=== PATIENT | male | born 1985 | race Caucasian/White ===

== ENCOUNTER 2017-11-04 21:47 | Emergency (ER) | payer MEDICARE, MEDICAID ==
[~2017-11-04] VITALS: Ht 195.6 cm; Wt 132.5 kg
[~2017-11-04 21:47] MED LIST: INSU100V13 SQ; LISI-604 PO
[2017-11-04] MEDS ORDERED: HYDROcodone/acetaminophen 10/325mg tab PO ONE (22:10)
[2017-11-04] MEDS ORDERED: cyclobenzaprine 10mg tablet PO ONE (22:10)
[2017-11-04] MEDS ORDERED: NAPR-56 PO (23:35)
[2017-11-04] MEDS ORDERED: CYCL-1 PO (23:35)
[2017-11-04] MEDS ORDERED: HYDR-569 PO (23:35)
[2017-11-04 23:41] VITALS: BP 175/65
== END 2017-11-04 23:45 | disposition home or self-care (01) ==
LOC: ER 21:48
DX: G89.29 Other chronic pain (principal); M54.5 Low back pain; M62.830 Muscle spasm of back; I10 Essential (primary) hypertension; E11.9 Type 2 diabetes mellitus without complications; Z87.891 Personal history of nicotine dependence; Z98.890 Other specified postprocedural states; Z88.8 Allergy status to other drugs, medicaments and biological substances; Z79.82 Long term (current) use of aspirin; Z79.899 Other long term (current) drug therapy; V49.9XXA Car occupant (driver) (passenger) injured in unspecified traffic accident, initial encounter; Y93.89 Activity, other specified; Y92.488 Other paved roadways as the place of occurrence of the external cause; Y99.8 Other external cause status
CPT/HCPCS: 72128; 72131; 99284

== ENCOUNTER 2024-09-29 09:11 | Inpatient (IN) | payer MEDICAID, MEDICARE ==
[~2024-09-29] VITALS: Ht 195.6 cm; Wt 109.1 kg
[~2024-09-29 09:11] MED LIST changes: +CYCL-1 PO; +HYDR-4383 PO; -LISI-604 PO; +LISI5TAB22 PO
[2024-09-29 10:16] LABS: BASOPHILS # (AUTO) 0.1 X10'3 (0-0.2); BASOPHILS % (AUTO) 0.9 % (0-1); EOSINOPHILS # (AUTO) 0.2 X10'3 (0-0.9); HEMATOCRIT 44.8 % (42.0-52.0); HEMOGLOBIN 15.3 g/dl (14.0-17.9); LYMPHOCYTES # (AUTO) 1.4 X10'3 (1.1-4.8); LYMPHOCYTES % (AUTO) 21.9 % (21-51); MEAN CORPUSCULAR HEMOGLOBIN 29.4 PG (27.0-31.0); MEAN CORPUSCULAR HGB CONC 34.2 g/dL (33.0-36.5); MEAN PLATELET VOLUME 7.3 FL (7.4-10.4); MONOCYTES # (AUTO) 0.4 X10'3 (0-0.9); MONOCYTES % (AUTO) 5.7 % (2-12); NEUTROPHILS # (AUTO) 4.3 X10'3 (1.8-7.7); NEUTROPHILS % (AUTO) 68.5 % (42-75); PLATELET COUNT 429 X10'3 (140-440); RED BLOOD COUNT 5.21 X10'6 (4.70-6.10); RED CELL DISTRIBUTION WIDTH 14.5 % (11.5-14.5); WHITE BLOOD COUNT 6.3 X10'3 (4.5-11.0)
[2024-09-29 10:22] LABS: ALBUMIN 3.1 G/DL (3.4-5.0); ANION GAP 8 (8-16); BLOOD UREA NITROGEN 33 MG/DL (7-18); BUN/CREATININE RATIO 15.1 (10.0-20.0); CALCIUM 8.9 MG/DL (8.5-10.1); CHLORIDE 104 MMOL/L (99-107); CREATININE 2.18 MG/DL (0.60-1.10); GLUCOSE 187 MG/DL (70-104); MAGNESIUM 1.9 MG/DL (1.5-2.4); POTASSIUM 4.8 MMOL/L (3.5-5.1); SODIUM 137 MMOL/L (135-145); TOTAL CARBON DIOXIDE 25.3 MMOL/L (24-32); eCRCL 58 ML/MIN; eGFR 34 ML/MIN
[2024-09-29] MEDS: vancomycin/NS 1 GM ADD-VANTAGE 250 ML IV ONE (10:41)
[2024-09-29] MEDS: linezolid 600mg/300ml PREMIX 300 ML IV ONE (13:02)
[2024-09-29] MEDS ORDERED: magnesium sulf-water 2g/50mL 50 ML IV PRN (13:50)
[2024-09-29] MEDS ORDERED: magnesium sulf-water 4G/100mL 100 ML IV PRN (13:50)
[2024-09-29] MEDS ORDERED: magnesium Cl slow-release 64mg tablet PO PRN (13:50)
[2024-09-29] MEDS ORDERED: potassium Cl 20 mEq SR tablet PO PRN ×2 (13:50)
[2024-09-29] MEDS ORDERED: potassium Cl 40MEQ/1/2NS 520ml 520 ML IV PRN (13:50)
[2024-09-29] MEDS ORDERED: magnesium hydroxide 30ml (MOM) UD suspension PO PRN (13:50)
[2024-09-29] MEDS ORDERED: HYDROmorphone/PF 0.2 MG/ML SYRINGE IV PRN (13:50)
[2024-09-29] MEDS: normal saline 1000ml 1,000 ML IV SCH ×2 (14:18→18:18)
[2024-09-29] MEDS: hydrALAZINE 20mg/ml inj. IV ONE (15:01)
[2024-09-29 15:45] LABS: BILIRUBIN,URINE NEGATIVE (Neg); CLARITY,URINE CLEAR (Clear); COLOR,URINE YELLOW (Yellow); GLUCOSE, URINE 250 mg/dl (Neg); KETONES,URINE NEGATIVE (Neg); LEUKOCYTE ESTERASE ,URINE NEGATIVE (Neg); NITRITES, URINE NEGATIVE (Neg); OCCULT BLOOD,URINE TRACE-INTACT (Neg); PH,URINE 5.5 (4.8-8.0); PROTEIN,URINE >=300 mg/dl (Neg); UROBILINOGEN,URINE 0.2 E.U/dL (0.2-1.0)
[2024-09-29 15:48] LABS: CREATININE 2.24 MG/DL (0.60-1.10); SODIUM 138 MMOL/L (135-145); eCRCL 56 ML/MIN; eGFR 33 ML/MIN
[2024-09-29 15:52] LABS: OSMOLALITY 305 MOSM/K (280-300)
[2024-09-29 16:01] LABS: UA COLLECTION TYPE URINAL
[2024-09-29 16:11] LABS: RBC,URINE 0-2 /HPF (0-2); WBC,URINE 0-4 /HPF (0-4)
[2024-09-29 16:21] LABS: BACTERIA,URINE NONE SEEN /HPF (Neg); COARSE GRANULAR CAST 0-3 /LPF (NEGATIVE); SQUAMOUS EPITHELIAL CELL,UR FEW /LPF (FEW)
[2024-09-29] MEDS: heparin, porcine 5000 units/ml vial SQ SCH (18:03)
[2024-09-29] MEDS ORDERED: DEXTROSE 15 GM of carb/4 tabs (each vial/BOTTLE has 4 tablets) PO PRN ×2 (18:35)
[2024-09-29] MEDS ORDERED: glucagon, human recombinant 1mg kit SUBCUT PRN (18:35)
[2024-09-29] MEDS ORDERED: dextrose 50%-water 50ml dispensing syringe IV PRN ×2 (18:35)
[2024-09-29] MEDS ORDERED: hydrALAZINE 20mg/ml inj. IV PRN (18:45)
[2024-09-29 19:02] LABS: CHOL/HDL RATIO 3.3 (0.00-4.99); CHOLESTEROL 174 MG/DL (0-200); HDL CHOLESTEROL 52 MG/DL (35-60); LDL CHOLESTEROL 94 MG/DL (50-100); TRIGLYCERIDES 146 MG/DL (20-135)
[2024-09-29 19:08] LABS: HEMOGLOBIN A1C 11.1 % (4.5-6.2)
[2024-09-29] MEDS ORDERED: TORS10TA17 PO (19:15)
[2024-09-29] MEDS ORDERED: LOSA100T58 PO (19:20)
[2024-09-29] MEDS ORDERED: OMEP20CA16 PO (19:20)
[2024-09-29] MEDS ORDERED: ACET-75 PO (19:20)
[2024-09-29] MEDS ORDERED: FLO0.4C PO (19:20)
[2024-09-29] MEDS ORDERED: ATOR40TA71 PO (19:20)
[2024-09-29] MEDS ORDERED: AMLO10TA13 PO (19:20)
[2024-09-29] MEDS ORDERED: ERGO500054 PO (19:24)
[2024-09-29] MEDS ORDERED: GABA-530 PO (19:24)
[2024-09-29] MEDS ORDERED: BENZ-111 PO (19:24)
[2024-09-29] MEDS ORDERED: LANTUS SQ (19:26)
[2024-09-29] MEDS ORDERED: INSU100I61 SQ (19:26)
[2024-09-29 19:30] VITALS: BP 171/105; PULSE 106; RESP 16; TEMP 99.5; O2SAT 98
[2024-09-29 20:00] VITALS: RESP 16; O2SAT 98
[2024-09-29] MEDS: K and/or MAG REPLACEMENT MC SCH (20:00)
[2024-09-29] MEDS: amLODIPine 5mg tablet PO SCH (21:00)
[2024-09-29] MEDS: gabapentin 300mg capsule PO SCH (21:22)
[2024-09-29] MEDS: atorvastatin 20mg tablet PO SCH (21:23)
[2024-09-29] MEDS: docusate sod 100mg capsule PO SCH (21:24)
[2024-09-29] MEDS: losartan 50mg tablet PO SCH (21:24)
[2024-09-29] MEDS: amLODIPine 5mg tablet PO ONE (21:24)
[2024-09-29] MEDS: lisinopril 5mg tablet PO SCH (21:25)
[2024-09-29 22:00] VITALS: BP 153/101; PULSE 103; RESP 18; TEMP 97.8; O2SAT 99
[2024-09-29] MEDS: INSULIN LISPRO 100 UNIT/ML INSULN.PEN MULTI-DOSE SQ SCH (22:05)
[2024-09-29] MEDS: insulin glargine (Lantus) pen - multi-dose SQ SCH (22:06)
[2024-09-30] VITALS (7 sets, daily range): BP systolic 132–160; BP diastolic 85–104; PULSE 74–101; RESP 14–16; TEMP 97.2–98.6; O2SAT 95–100
[2024-09-30] MEDS: acetaminophen 325mg tablet PO PRN (04:20)
[2024-09-30] MEDS: HYDROmorphone inj. 0.5 MG/0.5 ML DISP.SYRIN IV PRN (05:28)
[2024-09-30 06:07] LABS: BASOPHILS % (AUTO) 0.5 % (0-1); EOSINOPHILS # (AUTO) 0.2 X10'3 (0-0.9); EOSINOPHILS % (AUTO) 2.9 % (0-6); HEMATOCRIT 36.8 % (42.0-52.0); HEMOGLOBIN 12.6 g/dl (14.0-17.9); LYMPHOCYTES # (AUTO) 1.6 X10'3 (1.1-4.8); LYMPHOCYTES % (AUTO) 22.8 % (21-51); MEAN CORPUSCULAR HEMOGLOBIN 29.4 PG (27.0-31.0); MEAN CORPUSCULAR HGB CONC 34.3 g/dL (33.0-36.5); MEAN CORPUSCULAR VOLUME 85.7 FL (78-98); MEAN PLATELET VOLUME 7.6 FL (7.4-10.4); MONOCYTES # (AUTO) 0.7 X10'3 (0-0.9); NEUTROPHILS # (AUTO) 4.5 X10'3 (1.8-7.7); NEUTROPHILS % (AUTO) 63.8 % (42-75); PLATELET COUNT 323 X10'3 (140-440); RED CELL DISTRIBUTION WIDTH 14.4 % (11.5-14.5)
[2024-09-30 06:33] LABS: ALANINE AMINOTRANSFERASE 25 U/L (12-78); ALBUMIN 2.4 G/DL (3.4-5.0); ALBUMIN/GLOBULIN RATIO 0.6 (1.1-1.5); ALKALINE PHOSPHATASE 99 IU/L (46-116); ANION GAP 9 (8-16); ASPARTATE AMINO TRANSFERASE 18 U/L (10-37); BILIRUBIN,TOTAL 0.3 MG/DL (0.1-1.0); BLOOD UREA NITROGEN 33 MG/DL (7-18); BUN/CREATININE RATIO 14.9 (10.0-20.0); CALCIUM 8.4 MG/DL (8.5-10.1); CHLORIDE 103 MMOL/L (99-107); CREATININE 2.21 MG/DL (0.60-1.10); GLUCOSE 317 MG/DL (70-104); POTASSIUM 4.3 MMOL/L (3.5-5.1); SODIUM 137 MMOL/L (135-145); TOTAL CARBON DIOXIDE 25.4 MMOL/L (24-32); TOTAL PROTEIN 6.2 G/DL (6.4-8.2); eCRCL 57 ML/MIN; eGFR 33 ML/MIN
[2024-09-30] MEDS: amLODIPine 5mg tablet PO ONE (07:15)
[2024-09-30] MEDS: piperacillin/tazo 4.5gm/100ml 100 ML IV SCH (07:19)
[2024-09-30] MEDS: INSULIN LISPRO 100 UNIT/ML INSULN.PEN MULTI-DOSE SQ SCH (09:22)
[2024-09-30] MEDS ORDERED: amLODIPine 5mg tablet PO SCH (10:50)
[2024-09-30] MEDS: losartan 50mg tablet PO SCH (12:09)
[2024-09-30] MEDS ORDERED: CARV-50 PO (12:13)
[2024-09-30] MEDS: HYDROcodone/acetaminophen 5mg/325mg tablet PO PRN (12:22)
[2024-09-30] MEDS: JUVEN Smoothie Arginine/Glut./Ca2+Bmb (Juven 19.3pkt) 240ml cup PO SCH (17:30)
[2024-09-30 17:38] LABS: URINE AMPHETAMINE SCREEN NEGATIVE (Neg); URINE BARBITUATE SCREEN NEGATIVE (Neg); URINE BENZODIAZEPINES SCREEN NEGATIVE (Neg); URINE CANNABINOID SCREEN NEGATIVE (Neg); URINE COCAINE SCREEN NEGATIVE (Neg); URINE METHADONE SCREEN NEGATIVE (Neg); URINE OPIATE SCREEN NEGATIVE (Neg); URINE PHENCYCLIDINE SCREEN NEGATIVE (Neg)
[2024-09-30] MEDS ORDERED: benzonatate 100mg capsule PO PRN (18:25)
[2024-09-30] MEDS ORDERED: cyclobenzaprine 10mg tablet PO PRN (18:25)
[2024-09-30] MEDS: furosemide 20MG tablet PO SCH (19:23)
[2024-09-30] MEDS: linezolid 600mg/300ml PREMIX 300 ML IV SCH (21:24)
[2024-09-30] MEDS: ergocalciferol (vit D2) capsule 50,000 UNITS (1,250mcg) CAPSULE PO SCH (21:36)
[2024-09-30] MEDS: carVEDilol 12.5mg tablet PO SCH (21:36)
[2024-10-01] VITALS (7 sets, daily range): BP systolic 115–146; BP diastolic 72–94; PULSE 77–89; RESP 13–16; TEMP 97.6–99; O2SAT 98–99
[2024-10-01 06:42] LABS: BASOPHILS % (AUTO) 0.6 % (0-1); EOSINOPHILS # (AUTO) 0.4 X10'3 (0-0.9); EOSINOPHILS % (AUTO) 5.5 % (0-6); HEMATOCRIT 38.7 % (42.0-52.0); LYMPHOCYTES # (AUTO) 1.8 X10'3 (1.1-4.8); LYMPHOCYTES % (AUTO) 28.2 % (21-51); MEAN CORPUSCULAR HEMOGLOBIN 29.2 PG (27.0-31.0); MEAN CORPUSCULAR HGB CONC 33.6 g/dL (33.0-36.5); MEAN CORPUSCULAR VOLUME 86.8 FL (78-98); MEAN PLATELET VOLUME 7.7 FL (7.4-10.4); MONOCYTES # (AUTO) 0.5 X10'3 (0-0.9); MONOCYTES % (AUTO) 7.3 % (2-12); NEUTROPHILS # (AUTO) 3.7 X10'3 (1.8-7.7); NEUTROPHILS % (AUTO) 58.4 % (42-75); PLATELET COUNT 368 X10'3 (140-440); RED BLOOD COUNT 4.46 X10'6 (4.70-6.10); RED CELL DISTRIBUTION WIDTH 14.7 % (11.5-14.5); WHITE BLOOD COUNT 6.4 X10'3 (4.5-11.0)
[2024-10-01 06:55] LABS: ALANINE AMINOTRANSFERASE 25 U/L (12-78); ALBUMIN 2.6 G/DL (3.4-5.0); ALBUMIN/GLOBULIN RATIO 0.7 (1.1-1.5); ALKALINE PHOSPHATASE 85 IU/L (46-116); ANION GAP 6 (8-16); ASPARTATE AMINO TRANSFERASE 14 U/L (10-37); BILIRUBIN,TOTAL 0.3 MG/DL (0.1-1.0); BLOOD UREA NITROGEN 32 MG/DL (7-18); CALCIUM 8.5 MG/DL (8.5-10.1); CHLORIDE 102 MMOL/L (99-107); CREATININE 2.14 MG/DL (0.60-1.10); GLUCOSE 233 MG/DL (70-104); MAGNESIUM 1.9 MG/DL (1.5-2.4); POTASSIUM 4.4 MMOL/L (3.5-5.1); SODIUM 136 MMOL/L (135-145); TOTAL CARBON DIOXIDE 27.6 MMOL/L (24-32); TOTAL PROTEIN 6.3 G/DL (6.4-8.2); eCRCL 59 ML/MIN; eGFR 35 ML/MIN
[2024-10-01] MEDS: lactose-reduced food (Ensure High Protein) 237ml bottle PO SCH (07:54)
[2024-10-01] MEDS: amLODIPine 5mg tablet PO SCH (08:05)
[2024-10-01] MEDS: tamsulosin 0.4mg capsule PO SCH (08:07)
[2024-10-01] MEDS: pantoprazole 40mg Tablet.DR PO SCH (08:07)
[2024-10-01] MEDS: INSULIN LISPRO 100 UNIT/ML INSULN.PEN MULTI-DOSE SQ SCH (09:00)
[2024-10-01] MEDS: mag hydrox/Alum hydrox/simeth 30ml oral suspension PO PRN (10:00)
[2024-10-01] MEDS ORDERED: lactose-reduced food (Ensure Enlive) - 237ml bottle PO SCH (11:05)
[2024-10-01] MEDS: MULTIVIT-MIN/FERROUS GLUCONATE 9 MG/15 ML LIQUID PO SCH (12:45)
[2024-10-02] VITALS (8 sets, daily range): BP systolic 124–156; BP diastolic 67–98; PULSE 83–95; RESP 12–17; TEMP 97.4–98.5; O2SAT 95–98
[2024-10-02 06:20] LABS: ALANINE AMINOTRANSFERASE 22 U/L (12-78); ALBUMIN 2.4 G/DL (3.4-5.0); ALBUMIN/GLOBULIN RATIO 0.7 (1.1-1.5); ALKALINE PHOSPHATASE 84 IU/L (46-116); ANION GAP 6 (8-16); ASPARTATE AMINO TRANSFERASE 12 U/L (10-37); BASOPHILS % (AUTO) 0.7 % (0-1); BILIRUBIN,TOTAL 0.3 MG/DL (0.1-1.0); BLOOD UREA NITROGEN 38 MG/DL (7-18); BUN/CREATININE RATIO 15.8 (10.0-20.0); CALCIUM 8.2 MG/DL (8.5-10.1); CHLORIDE 102 MMOL/L (99-107); EOSINOPHILS # (AUTO) 0.2 X10'3 (0-0.9); EOSINOPHILS % (AUTO) 3.7 % (0-6); HEMATOCRIT 35.4 % (42.0-52.0); LYMPHOCYTES # (AUTO) 1.6 X10'3 (1.1-4.8); LYMPHOCYTES % (AUTO) 23.8 % (21-51); MAGNESIUM 1.9 MG/DL (1.5-2.4); MEAN CORPUSCULAR HGB CONC 33.8 g/dL (33.0-36.5); MEAN CORPUSCULAR VOLUME 85.9 FL (78-98); MEAN PLATELET VOLUME 7.9 FL (7.4-10.4); MONOCYTES # (AUTO) 0.5 X10'3 (0-0.9); MONOCYTES % (AUTO) 8.2 % (2-12); NEUTROPHILS # (AUTO) 4.2 X10'3 (1.8-7.7); NEUTROPHILS % (AUTO) 63.6 % (42-75); PLATELET COUNT 294 X10'3 (140-440); RED BLOOD COUNT 4.12 X10'6 (4.70-6.10); RED CELL DISTRIBUTION WIDTH 14.7 % (11.5-14.5); SODIUM 133 MMOL/L (135-145); TOTAL CARBON DIOXIDE 25.2 MMOL/L (24-32); TOTAL PROTEIN 5.7 G/DL (6.4-8.2); WHITE BLOOD COUNT 6.5 X10'3 (4.5-11.0); eCRCL 53 ML/MIN; eGFR 30 ML/MIN
[2024-10-02 06:30] LABS: GLUCOSE 424 MG/DL (70-104); POTASSIUM 6.2 MMOL/L (3.5-5.1)
[2024-10-02] MEDS: ondansetron/PF 4mg/2ml inj IV PRN (08:11)
[2024-10-02] MEDS: CALCIUM GLUC 1gm/50ml NACL,iso 50 ML IV ONE (08:38)
[2024-10-02] MEDS: insulin regular, human 10 units/0.1 ml syringe IV ONE ×2 (08:45→13:19)
[2024-10-02] MEDS: INSULIN LISPRO 100 UNIT/ML INSULN.PEN MULTI-DOSE SQ SCH (09:00)
[2024-10-02] MEDS ORDERED: CALCIUM GLUC 1gm/50ml NACL,iso 50 ML IV PRN ×2 (12:00→12:09)
[2024-10-02] MEDS ORDERED: sodium bicarbonate (8.4%) 1 mEq/ml syringe IV ONE (12:00)
[2024-10-02] MEDS: sodium bicarbonate (8.4%) inj. 1 MEQ/ML ML IV ONE (12:50)
[2024-10-02] MEDS: dextrose 50%-water 50ml dispensing syringe IV ONE (12:51)
[2024-10-02] MEDS: albuterol 2.5 MG/3 ML nebule NEB ONE (14:05)
[2024-10-02] MEDS: levoFLOXACIN 750MG TABLET PO SCH (15:42)
[2024-10-02] MEDS: metroNIDAZOLE 500mg tablet PO SCH (15:43)
[2024-10-02 17:23] LABS: ALANINE AMINOTRANSFERASE 19 U/L (12-78); ALBUMIN 2.4 G/DL (3.4-5.0); ALBUMIN/GLOBULIN RATIO 0.7 (1.1-1.5); ALKALINE PHOSPHATASE 82 IU/L (46-116); ANION GAP 11 (8-16); ASPARTATE AMINO TRANSFERASE 15 U/L (10-37); BILIRUBIN,TOTAL 0.4 MG/DL (0.1-1.0); BLOOD UREA NITROGEN 41 MG/DL (7-18); BUN/CREATININE RATIO 15.8 (10.0-20.0); CALCIUM 8.7 MG/DL (8.5-10.1); CHLORIDE 96 MMOL/L (99-107); POTASSIUM 5.1 MMOL/L (3.5-5.1); SODIUM 127 MMOL/L (135-145); TOTAL CARBON DIOXIDE 20.4 MMOL/L (24-32); TOTAL PROTEIN 5.9 G/DL (6.4-8.2); eCRCL 49 ML/MIN; eGFR 28 ML/MIN
[2024-10-02 17:32] LABS: GLUCOSE 491 MG/DL (70-104)
[2024-10-02 19:42] LABS: TOTAL PROTEIN,URINE RANDOM 205.6 MG/DL
[2024-10-02] MEDS ORDERED: insulin glargine (Lantus) pen - multi-dose SQ SCH (21:00)
[2024-10-02] MEDS: insulin glargine (Lantus) pen - multi-dose SQ SCH (21:45)
[2024-10-02] MEDS ORDERED: sodium phosphate inj. 15 MMOL in dextrose 5%-water 250 ML IV PRN (21:55)
[2024-10-02] MEDS ORDERED: Insulin Reg/NS 100units/100mL 100 ML IV SCH (21:55)
[2024-10-02] MEDS ORDERED: potassium Cl 40MEQ/1/2NS 520ml 520 ML IV PRN (21:55)
[2024-10-02] MEDS ORDERED: dextrose 50%-water 50ml dispensing syringe IV PRN (21:55)
[2024-10-02] MEDS ORDERED: potassium Cl 40MEQ/270ML bag 270 ML IV PRN (21:55)
[2024-10-03] MEDS: Insulin Reg/NS 100units/100mL 100 ML IV SCH (00:19)
[2024-10-03 01:46] LABS: ALANINE AMINOTRANSFERASE 20 U/L (12-78); ALBUMIN 2.2 G/DL (3.4-5.0); ALBUMIN/GLOBULIN RATIO 0.7 (1.1-1.5); ALKALINE PHOSPHATASE 76 IU/L (46-116); ANION GAP 5 (8-16); ASPARTATE AMINO TRANSFERASE 15 U/L (10-37); BILIRUBIN,TOTAL 0.2 MG/DL (0.1-1.0); BLOOD UREA NITROGEN 42 MG/DL (7-18); BUN/CREATININE RATIO 16.7 (10.0-20.0); CALCIUM 8.2 MG/DL (8.5-10.1); CHLORIDE 99 MMOL/L (99-107); CREATININE 2.51 MG/DL (0.60-1.10); GLUCOSE 384 MG/DL (70-104); MAGNESIUM 1.8 MG/DL (1.5-2.4); PHOSPHORUS 4.1 MG/DL (2.3-4.5); SODIUM 130 MMOL/L (135-145); TOTAL CARBON DIOXIDE 26.3 MMOL/L (24-32); TOTAL PROTEIN 5.4 G/DL (6.4-8.2); eCRCL 50 ML/MIN; eGFR 29 ML/MIN
[2024-10-03 01:50] LABS: POTASSIUM 5.2 MMOL/L (3.5-5.1)
[2024-10-03 02:00] VITALS: BP 136/79; PULSE 75; RESP 12; TEMP 97.5; O2SAT 97
[2024-10-03] MEDS ORDERED: potassium Cl 40MEQ/1/2NS 520ml 520 ML IV PRN (02:00)
[2024-10-03] MEDS ORDERED: magnesium sulf-water 2g/50mL 50 ML IV PRN (02:00)
[2024-10-03] MEDS ORDERED: potassium Cl 40MEQ/270ML bag 270 ML IV PRN (02:00)
[2024-10-03] MEDS: dextrose 5%-1/2 normal saline 1,000 ML IV SCH (03:50)
[2024-10-03 05:58] VITALS: RESP 20; O2SAT 95
[2024-10-03 06:30] VITALS: BP 146/94; PULSE 81; RESP 12; TEMP 97.8; O2SAT 96
[2024-10-03 06:37] LABS: BASOPHILS # (AUTO) 0.1 X10'3 (0-0.2); EOSINOPHILS # (AUTO) 0.3 X10'3 (0-0.9); EOSINOPHILS % (AUTO) 5.6 % (0-6); HEMATOCRIT 34.9 % (42.0-52.0); HEMOGLOBIN 11.7 g/dl (14.0-17.9); LYMPHOCYTES # (AUTO) 1.7 X10'3 (1.1-4.8); LYMPHOCYTES % (AUTO) 30.2 % (21-51); MEAN CORPUSCULAR HGB CONC 33.6 g/dL (33.0-36.5); MEAN CORPUSCULAR VOLUME 86.3 FL (78-98); MEAN PLATELET VOLUME 7.6 FL (7.4-10.4); MONOCYTES # (AUTO) 0.6 X10'3 (0-0.9); MONOCYTES % (AUTO) 11.5 % (2-12); NEUTROPHILS # (AUTO) 2.9 X10'3 (1.8-7.7); NEUTROPHILS % (AUTO) 51.7 % (42-75); PLATELET COUNT 291 X10'3 (140-440); RED BLOOD COUNT 4.05 X10'6 (4.70-6.10); RED CELL DISTRIBUTION WIDTH 14.3 % (11.5-14.5); WHITE BLOOD COUNT 5.6 X10'3 (4.5-11.0)
[2024-10-03 07:05] LABS: ALANINE AMINOTRANSFERASE 18 U/L (12-78); ALBUMIN 2.3 G/DL (3.4-5.0); ALBUMIN/GLOBULIN RATIO 0.6 (1.1-1.5); ALKALINE PHOSPHATASE 71 IU/L (46-116); ANION GAP 7 (8-16); ASPARTATE AMINO TRANSFERASE 16 U/L (10-37); BILIRUBIN,TOTAL 0.2 MG/DL (0.1-1.0); BLOOD UREA NITROGEN 40 MG/DL (7-18); BUN/CREATININE RATIO 16.5 (10.0-20.0); CALCIUM 8.7 MG/DL (8.5-10.1); CHLORIDE 102 MMOL/L (99-107); CREATININE 2.42 MG/DL (0.60-1.10); GLUCOSE 130 MG/DL (70-104); MAGNESIUM 2.2 MG/DL (1.5-2.4); PHOSPHORUS 4.6 MG/DL (2.3-4.5); POTASSIUM 4.7 MMOL/L (3.5-5.1); SODIUM 135 MMOL/L (135-145); TOTAL PROTEIN 5.9 G/DL (6.4-8.2); eCRCL 52 ML/MIN; eGFR 30 ML/MIN
[2024-10-03 11:00] VITALS: BP 148/89; PULSE 89; RESP 16; TEMP 98.2; O2SAT 97
[2024-10-03] MEDS ORDERED: LEVO750T68 PO (11:15)
[2024-10-03] MEDS ORDERED: METR-159 PO (11:15)
[2024-10-03] MEDS ORDERED: LACT1CAP26 PO (11:16)
== END 2024-10-03 16:20 | disposition home or self-care (01) | DRG 721 ==
LOC: ER 09:12 → ED HOLD 13:18 → ORTHO 4S 19:04 → PCU 3S 10-02 23:39
PROVIDERS: ADMIT Family Medicine; ATTEND Family Medicine
DX: T81.49XA Infection following a procedure, other surgical site, initial encounter (principal); N17.0 Acute kidney failure with tubular necrosis; E10.69 Type 1 diabetes mellitus with other specified complication; E44.0 Moderate protein-calorie malnutrition; M86.8X6 Other osteomyelitis, lower leg; E88.09 Other disorders of plasma-protein metabolism, not elsewhere classified; L03.116 Cellulitis of left lower limb; Y83.8 Other surgical procedures as the cause of abnormal reaction of the patient, or of later complication, without mention of misadventure at the time of the procedure; E78.5 Hyperlipidemia, unspecified; I10 Essential (primary) hypertension; E87.5 Hyperkalemia; E03.9 Hypothyroidism, unspecified; I16.1 Hypertensive emergency; Y92.89 Other specified places as the place of occurrence of the external cause; Z79.4 Long term (current) use of insulin; Z79.899 Other long term (current) drug therapy; Z68.29 Body mass index [BMI] 29.0-29.9, adult
CPT/HCPCS: 36415; 73502; 73700; 73718; 80048; 80053; 80061; 80305; 81001; 81002; 82565; 82570; 82948; 83036; 83605; 83735; 83930; 83935; 84100; 84132; 84145; 84156; 84295; 84300; 85025; 85651; 86140; 87040; 87081; 93005; 94640; 99285; A6196; A6253; A6258; A6446; A6449; A7015; G0378; J0360; J0610; J1171; J1644; J1815; J2020; J2405; J2543; J3370; J3490; J7030; J7040; J7120

== ENCOUNTER 2024-10-27 15:11 | Emergency (ER) | payer MEDICAID ==
[~2024-10-27] VITALS: Ht 188 cm; Wt 95.5 kg
[~2024-10-27 15:11] MED LIST changes: +ACET-75 PO; +AMLO10TA13 PO; +ATOR40TA71 PO; +BENZ-111 PO; +CARV-50 PO; +ERGO500054 PO; +FLO0.4C PO; +GABA-530 PO; -HYDR-4383 PO; +INSU100I61 SQ; -INSU100V13 SQ; +LACT1CAP26 PO; +LANTUS SQ; +LEVO750T68 PO; -LISI5TAB22 PO; +LOSA100T58 PO; +METR-159 PO; +OMEP20CA16 PO; +TORS10TA17 PO
[2024-10-27 19:04] VITALS: BP 121/87; PULSE 87; RESP 15; TEMP 97.9; O2SAT 100
== END 2024-10-27 19:05 | disposition home or self-care (01) ==
LOC: ER 15:12
DX: Z48.00 Encounter for change or removal of nonsurgical wound dressing (principal); I10 Essential (primary) hypertension; E11.9 Type 2 diabetes mellitus without complications; G89.29 Other chronic pain; M54.9 Dorsalgia, unspecified; F17.210 Nicotine dependence, cigarettes, uncomplicated; Z88.8 Allergy status to other drugs, medicaments and biological substances; Z79.899 Other long term (current) drug therapy; Z98.890 Other specified postprocedural states; Z72.89 Other problems related to lifestyle
CPT/HCPCS: 99281; J7030

== ENCOUNTER 2025-01-07 19:54 | Emergency (ER) | payer MEDICAID ==
[~2025-01-07] VITALS: Ht 195.6 cm; Wt 121.7 kg
[~2025-01-07 19:54] MED LIST changes: -FLO0.4C PO; +TAMS-55 PO
[2025-01-07 19:57] VITALS: TEMP 98.7
--- NOTE | 2025-01-07 20:36 | RADIOLOGY REPORT ---
CLINICAL INDICATION: TOE PAIN LEFT TECHNIQUE: DI FOOT, COMPLETE (3VW MIN) Comparison: None FINDINGS: S/p amputation at the 1st proximal phalanx. No additional osseous or joint abnormality identified wi th no evidence of acute fracture or dislocation. Mild degenerative changes noted in IP joints. Arteri al calcifications in left leg/foot. IMPRESSION: No evidence of acute fracture or dislocation.
--- NOTE | 2025-01-07 22:07 | Physician Documentation ---
History of Present Illness ~ Chief Complaint: Wound Stated Complaint: FOOT INFECTION Time Seen by MD: 21:42 Primary Medical Doctor: Dr Newberry Source: patient Mode of Arrival: POV Exam Limitations: no limitations HPI Chief Complaint: Wound on left large toe Caveat: None Independent Historians: None History of Present Illness: Patient is a 39-year-old man with multiple medical problems including chronic kidney disease, hypertension and type 2 diabetes. Patient noticed a wound on the bottom of his remaining left large toe. He had a amputated in August 2024 due to osteomyelitis. Patient noticed today he has a wound on the bottom of the end of the large toe. No fever. Patient has some mild pain. Patient is concerned and is here to make sure he does not have recurrent osteomyelitis. Review of systems: All systems were reviewed and are negative except for what is indicated in the history of present illness. Past Medical History: Chronic kidney disease, type 2 diabetes, hypertension, history of osteomyelitis Past Surgical History: August 2024, amputation of portion of the left large toe Social History: Denies tobacco use, alcohol use or drug use Medications: Reviewed as documented Nursing Notes Allergies: Reviewed as documented in Nursing Notes Tetanus within 5 years?: No (2014) Medication Reconciliation Allergies: Coded Allergies: gabapentin (Unverified Adverse Reaction, Intermediate, SEIZURES/WT GAIN, 09/29/24) ADV REACTION ONLY EXPERIENCED ONLY AFTER JAIL TREATENT PER PT Scheduled Amlodipine Besylate (Amlodipine Besylate), 1 TAB PO HS, (Reported) Atorvastatin Calcium (Atorvastatin Calcium), 1 TAB PO HS, (Reported) Carvedilol (Carvedilol), 1 TAB PO BID, (Reported) Ergocalciferol (Vitamin D2) (Vitamin D2), 1 TAB PO SATURDAY, (Reported) Gabapentin (Gabapentin), 300 MG PO TID, (Reported) Insulin Glargine,Hum.rec.anlog* (Lantus*), 41 UNIT SQ HS, (Reported) Lactobacillus Rhamnosus (Culturelle), 1 CAP PO DAILY Levofloxacin (Levofloxacin), 750 MG PO Q48H Losartan Potassium (Losartan Potassium), 1 TAB PO HS, (Reported) Metronidazole* (Flagyl*), 500 MG PO TID Omeprazole (Omeprazole), 1 TAB PO BID, (Reported) Tamsulosin Hcl* (Flomax*), 1 TAB PO BKF, (Reported) Torsemide (Torsemide), 1 TAB PO DAILY, (Reported) Scheduled PRN Acetaminophen (Acetaminophen), 2 TAB PO Q6H PRN for pain, (Reported) Benzonatate (Benzonatate), 1 TAB PO TID PRN for cough, (Reported) Cyclobenzaprine* (Cyclobenzaprine*), 1 TABLET PO HS PRN for muscle spasms Miscellaneous Medications Insulin Lispro (Insulin Lispro Kwikpen U-100), SQ, (Reported) Past Medical History Past Medical History: Hypertension, Diabetes, Chronic Back Pain Past Surgical History: orthopedic surgeries, other Patient History: FH: CVA (cerebrovascular accident) MOTHER FH: hypothyroidism maternal grandmother Alcohol Use: Occasionally Drug Use: none Lives with: S/O Lives In: Home Occupation: disabled Review of Systems All Other Systems at this time: Reviewed and Negative ROS Patient denies any other acute symptoms other than above. All other systems are negative Physical Exam Vital Signs: RN Vital Signs have been reviewed: Yes, Temperature: 98.7, Source: Oral, Heart Rate: 110, Respiratory Rate: 18, BP: 186/112, Pulse Oximetry: 97, Weight: 121.700 Oxygen Flow Rate: 0 Pulse Oximetry Reflects: adequate oxygenation Physical Exam General Appearance: No distress Neck: supple, normal ROM, trachea midline Pulmonary: No respiratory distress, CTA, BS equal Cardiac: RRR, no murmur, rub or gallop, Extremities: normal ROM, no swelling, non-tender, patient has partially amputated left large toe. Patient has a nickel size wound to the bottom of the stump remaining left large toe. There is no drainage. There is no erythema. Skin: intact, dry, warm, no rashes Neuro: AAOx3, speech is clear, no focal motor weakness Progress Results/Orders Results/Orders Orders - YIMI BOSE MD, Complete (3vw Min) (01/07/25 20:22) Wound Care Orders (01/07/25 21:48) Completed Orders - YIMI BOSE MD, Complete (3vw Min) (01/07/25 20:22) Dextrose 50%-Water (Dextrose 50%-Water S (01/07/25 23:10) Medications Received in ER Medications (Trade) Dose Ordered Sig/Gabi Route PRN Reason Start Time Stop Time Status Last Admin Dose Admin (dextrose 50%-water syringe) 50 ml ONCE ONCE IV 01/07/25 23:10 01/07/25 23:11 DC 01/07/25 23:17 50 ML Vital Signs 01/07/25 01/07/25 01/07/25 19:57 21:18 23:24 Temp 98.7 Pulse 110 89 Resp 16 18 16 B/P (MAP) 186/112 173/99 (123) Pulse Ox 97 98 O2 Flow Rate 0 Laboratory Tests Test 01/07/25 20:04 01/07/25 22:11 01/07/25 22:34 01/07/25 23:07 Glucometer 169 H 57 L 47 *L 44 *L Test 01/07/25 23:33 Glucometer 128 H Medical Decision Making Findings Differential diagnosis includes but isn't limited to: Blister, wound, osteomyelitis, cellulitis, abscess Emergency department course/medical decision-making: Patient has a wound underneath his left remaining large toe. He has a history of osteomyelitis in that toe prior to the amputation. There was no evidence of osteomyelitis on plain films of the left foot. Patient will be referred to wound care clinic. The wound was cleaned and a dressing was applied. However prior to discharge nursing checked his blood sugar and he had a blood sugar in the 40s. Patient is on oral agents. Patient was observed for a couple of hours and given food and juice. Patient's blood sugar continued to trend downward. Patient was then given an IV and an amp of D50. Patient's blood pressure improved and finally has been trending upwards. Patient is stable for discharge. Other blood work is not needed or indicated. Patient is to follow up with the Wound Care Clinic. Consultation/communications: Departure Time of Disposition: 21:50 Disposition: HOME / SELF CARE / HOMELESS Impression: Primary Impression: Ulcer to stump of left large toe Condition: Stable Discharge Instructions: How to Change Your Wound Dressing Additional Instructions: FOLLOW UP WITH THE WOUND CARE CLINIC AT [facility]. CALL THE CLINIC TOMORROW. [phone] Referrals: WOUND CLNIC, [facility] Education Educated: Patient Educated regarding: diagnosis, treatment Signature Scribe Signature: No scribe Attestation: No scribe YIMI BOSE MD January 07, 2025 22:07
[2025-01-07] MEDS: dextrose 50%-water 50ml dispensing syringe IV ONE (23:17)
[2025-01-08 01:15] VITALS: BP 198/82; PULSE 88; RESP 16; O2SAT 98
== END 2025-01-08 01:18 | disposition home or self-care (01) ==
LOC: ER 19:54
DX: E11.621 Type 2 diabetes mellitus with foot ulcer (principal); L97.529 Non-pressure chronic ulcer of other part of left foot with unspecified severity; E11.22 Type 2 diabetes mellitus with diabetic chronic kidney disease; I12.9 Hypertensive chronic kidney disease with stage 1 through stage 4 chronic kidney disease, or unspecified chronic kidney disease; N18.9 Chronic kidney disease, unspecified; Z88.8 Allergy status to other drugs, medicaments and biological substances; Z79.899 Other long term (current) drug therapy; Z72.89 Other problems related to lifestyle
CPT/HCPCS: 73630; 82948; 96374; 99283; J3490; 99284; A6258

== ENCOUNTER 2025-02-03 10:12 | Inpatient (IN) | payer MEDICAID ==
[2025-02-03] VITALS (11 sets, daily range): BP systolic 130–180; BP diastolic 62–107; PULSE 77–111; RESP 12–20; TEMP 97.2–97.6; O2SAT 98–100
[~2025-02-03] VITALS: Ht 188 cm; Wt 121.7 kg
--- NOTE | 2025-02-03 10:27 | ELECTROCARDIOGRAPH REPORT ---
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 Omar Laird Measurements Intervals Delta Rate: 103 P: 27 DE: 143 QRS: 16 QRSD: 102 T: 61 QT: 358 QTc: 469 Interpretive Statements Sinus tachycardia ST elev, probable normal early repol pattern Electronically Signed On 02-05-2025 18:34:[address] Omar Laird Please click the below link to view image of tracing.
--- NOTE | 2025-02-03 10:30 | Physician Documentation ---
History of Present Illness ~ Chief Complaint: Chest Pain Stated Complaint: CHEST PRESSURE Time Seen by MD: 11:13 Primary Medical Doctor: Dr Newberry HPI This is a 39-year-old male with a history of hypertension and diabetes type 1 who presents with one day of chest pain described as chest pressure with accompanying shortness of breath and lightheadedness. Patient reports that he was at outpatient wound care when he reported symptoms to wound care provider who request he present to the emergency department. The patient states that there was no nausea vomiting. He woke up tired this morning. The pain is like a pressure. The patient also feel lightheaded. His breathing is normal and he is not short of breath. I found out that he has not eaten anything today. Patient does not smoke and there is no history of coronary artery disease in the family. Medication Reconciliation Allergies: Coded Allergies: gabapentin (Unverified Adverse Reaction, Intermediate, SEIZURES/WT GAIN, 09/29/24) ADV REACTION ONLY EXPERIENCED ONLY AFTER CUSTODIAL TREATENT PER PT Scheduled Atorvastatin Calcium (Atorvastatin Calcium), 1 TAB PO HS, (Reported) Carvedilol (Carvedilol), 1 TAB PO BID, (Reported) Ciprofloxacin HCl (Ciprofloxacin HCl), 1 TAB PO BID, (Reported) Insulin Glargine,Hum.rec.anlog* (Lantus*), 41 UNIT SQ HS, (Reported) Losartan/Hydrochlorothiazide (Losartan-Hctz 100-25 Mg Tab), 1 TAB PO DAILY, (Reported) Omeprazole (Omeprazole), 40 MG PO ONCE, (Reported) Tamsulosin Hcl* (Flomax*), 1 TAB PO BKF, (Reported) Scheduled PRN Acetaminophen (Acetaminophen), 2 TAB PO Q6H PRN for pain, (Reported) Benzonatate (Benzonatate), 1 TAB PO TID PRN for cough, (Reported) Miscellaneous Medications Insulin Lispro (Insulin Lispro Kwikpen U-100), SQ, (Reported) Discontinued Medications Amlodipine Besylate (Amlodipine Besylate), 1 TAB PO HS, (Reported) Discontinued Reason: patient no longer taking Carvedilol (Carvedilol), 1 TAB PO BID, (Reported) Discontinued Reason: patient no longer taking Cyclobenzaprine* (Cyclobenzaprine*), 1 TABLET PO HS PRN for muscle spasms Discontinued Reason: patient no longer taking Ergocalciferol (Vitamin D2) (Vitamin D2), 1 TAB PO SATURDAY, (Reported) Discontinued Reason: patient no longer taking Gabapentin (Gabapentin), 300 MG PO TID, (Reported) Discontinued Reason: patient no longer taking Lactobacillus Rhamnosus (Culturelle), 1 CAP PO DAILY Discontinued Reason: completed med therapy Levofloxacin (Levofloxacin), 750 MG PO Q48H Discontinued Reason: patient no longer taking Losartan Potassium (Losartan Potassium), 1 TAB PO HS, (Reported) Discontinued Reason: patient no longer taking Metronidazole* (Flagyl*), 500 MG PO TID Discontinued Reason: patient no longer taking Torsemide (Torsemide), 1 TAB PO DAILY, (Reported) Discontinued Reason: patient no longer taking Past Medical History Past Medical History: Hypertension, Diabetes, Chronic Back Pain Past Surgical History: orthopedic surgeries, other Patient History: FH: CVA (cerebrovascular accident) MOTHER FH: hypothyroidism maternal grandmother Alcohol Use: Occasionally Drug Use: none Lives with: S/O Lives In: Home Occupation: disabled Review of Systems ROS Chest pressure as stated above in the HPI, otherwise all systems are reviewed and negative. Physical Exam Vital Signs: Temperature: 98.3, Source: Temporal, Heart Rate: 100, Respiratory Rate: 18, BP: 129/83, Pulse Oximetry: 99, Weight: 121.700 Oxygen Flow Rate: 0 Physical Exam VITALS: Reviewed and as above. GENERAL: Alert, nontoxic appearing, no apparent distress. RESPIRATORY: No increased work of breathing, no respiratory distress, speaking in full clear sentences Const: Well bit well nourished adult male not in acute distress but he said he is a bit incoherent Head: Atraumatic Eyes: Normal Conjunctiva ENT: Normal External Ears, Nose and Mouth. Moist mucous membrane Neck: Full range of motion. No meningismus Resp: Clear to auscultation bilaterally. Normal work of breathing Cardio: Regular rate and rhythm, no murmurs. Skin well perfused Abd: Soft, non-tender, non-distended. Normal bowel sounds. No rebound or guarding Skin: No petechiae or rashes. Warm and dry Back: No midline or flank tenderness Ext: No cyanosis, or edema Neuro: Awake and alert Psych: Normal Mood and Affect Progress Results/Orders Results/Orders Orders - OHNJOSY MD Chest,Single View (02/03/25 10:20) Monitor (02/03/25 10:20) Saline Lock (02/03/25 10:20) Oxygen (02/03/25 10:20) Page Hospitalist (02/03/25 13:25) Completed Orders - JOSY FLORENCE MD Chest,Single View (02/03/25 10:20) Cbc/Diff (02/03/25 10:20) PBNP (02/03/25 10:20) Electrocardiogram (02/03/25 10:20) Hs Troponin I W Calculations (02/03/25 10:20) Hs Troponin I W Calculations (02/03/25 12:20) Hs Troponin I W Calculations (02/03/25 13:20) CMP (02/03/25 10:20) Dextrose 15gm/4 Tab Bottle (Glucose 15 G (02/03/25 11:49) Normal Saline 1000ml (Sodium Chloride 10 (02/03/25 13:00) Vital Signs 02/03/25 02/03/25 02/03/25 02/03/25 10:21 11:10 12:30 12:46 Temp 98.3 98.3 98.3 Pulse 100 89 87 Resp 18 15 11 B/P (MAP) 129/83 152/99 (116) 175/104 (127) Pulse Ox 99 99 100 O2 Flow Rate 0 0 0 Laboratory Tests Test 02/03/25 10:32 02/03/25 11:47 02/03/25 12:12 02/03/25 12:14 White Blood Count 7.8 Red Blood Count 4.80 Hemoglobin 13.9 L Hematocrit 41.0 L Mean Corpuscular Volume 85.5 Mean Corpuscular Hemoglobin 29.1 Mean Corpuscular Hemoglobin Concent 34.0 Red Cell Distribution Width 12.2 Platelet Count 461 H Mean Platelet Volume 7.7 Neutrophils (%) (Auto) 59.5 Lymphocytes (%) (Auto) 25.3 Monocytes (%) (Auto) 8.6 Eosinophils (%) (Auto) 5.8 Basophils (%) (Auto) 0.8 Neutrophils # (Auto) 4.6 Lymphocytes # (Auto) 2.0 Monocytes # (Auto) 0.7 Eosinophils # (Auto) 0.5 Basophils # (Auto) 0.1 CBC Comment Sodium Level 131 L Potassium Level 3.8 Chloride Level 100 Carbon Dioxide Level 20.7 L Anion Gap 10 Blood Urea Nitrogen 60 H Creatinine 2.65 H Estimated GFR/1.73 m2 27 BUN/Creatinine Ratio 22.6 H Glucose Level 100 Calcium Level 8.6 Total Bilirubin 0.1 Aspartate Amino Transf (AST/SGOT) 25 Alanine Aminotransferase (ALT/SGPT) 106 H Alkaline Phosphatase 175 H Troponin I High Sensitivity 6 7 Pro-B-Type Natriuretic Peptide 109 Total Protein 6.9 Albumin 2.7 L Globulin 4.2 Albumin/Globulin Ratio 0.6 L Chemistry Comments Glucometer 35 *L 83 Troponin I High Sens Percent Delta 16 Troponin I Hi Sens Absolute Change 1 Test 02/03/25 12:33 Glucometer 127 H Heart Score: Heart Score Response (Comments) Value History Slightly Suspicious 0 EKG Normal 0 Age <45 0 Risk Factors 1 or 2 risk factors 1 Troponin Normal limit 0 Total 1 Medical Decision Making Findings MSE performed in triage and patient returned to ED lobby by nursing staff await available ED room. ACS protocol initiated by nursing staff. During the physical examination, the findings suggestive of acute life- threatening condition such as JVD, tracheal deviation, acidotic breathing, noisy stridorous breath sounds, pulses paradoxus, muffled heart sounds, unequal breath sounds, abdominal rigidity and rebound tenderness, focal neurological deficits, cool clammy skin, severe hypotension, severe tachycardia or bradycardia are absent. His EKG done at 10:20 hours (ED MD interpretation) shows sinus tachycardia at a rate of 103, left axis deviation, normal intervals, no acute ischemic changes. Patient's heart score is one. I do think his chest pain is not myocardial injury based. As I was talking to him getting the history he said he is a bit incoherent so I was trying to get food and then check the blood sugar and it was found to be 35. The whole time he is awake alert. We have given him p.o. glucose. Blood sugar went up. It is above 85 now. His labs were reviewed and his troponin is six and seven well within normal limits. CBC is unremarkable. However his BUN creatinine is somewhat elevated especially BUN. I will provide him IV fluids therapy for prerenal element. Also I like to admit him at least for overnight to make sure that his renal function is not deteriorating. DISCLAIMER Inadvertent spelling and grammatical errors,inadvertent assistant women's tennis coach errors,syntax errors, grammatical errors, and spelling errors are likely due to EMR/dictation software use and do not reflect on the overall quality of patient care. Note that the electronic time recorded on this note does not necessarily reflect the actual time of the patient encounter. Departure Disposition: 09 ADMITTED INPATIENT Impression: Primary Impression: DUSTIN (acute kidney injury) Additional Impressions: CKD stage 3 due to type 1 diabetes mellitus Acute chest pain Hypoglycemia Referrals: NO PRIMARY CARE PROVIDER (PCP) Signature Scribe Signature: None Attestation: This is my dictation RYANNE BROWN Feb 03, 2025 10:30 JOSY FLORENCE MD Feb 03, 2025 12:39
[2025-02-03 10:49] LABS: BASOPHILS # (AUTO) 0.1 X10'3 (0-0.2); BASOPHILS % (AUTO) 0.8 % (0-1); EOSINOPHILS # (AUTO) 0.5 X10'3 (0-0.9); EOSINOPHILS % (AUTO) 5.8 % (0-6); HEMOGLOBIN 13.9 g/dl (14.0-17.9); LYMPHOCYTES % (AUTO) 25.3 % (21-51); MEAN CORPUSCULAR HEMOGLOBIN 29.1 PG (27.0-31.0); MEAN CORPUSCULAR VOLUME 85.5 FL (78-98); MEAN PLATELET VOLUME 7.7 FL (7.4-10.4); MONOCYTES # (AUTO) 0.7 X10'3 (0-0.9); MONOCYTES % (AUTO) 8.6 % (2-12); NEUTROPHILS # (AUTO) 4.6 X10'3 (1.8-7.7); NEUTROPHILS % (AUTO) 59.5 % (42-75); PLATELET COUNT 461 X10'3 (140-440); RED CELL DISTRIBUTION WIDTH 12.2 % (11.5-14.5); WHITE BLOOD COUNT 7.8 X10'3 (4.5-11.0)
[2025-02-03 11:04] LABS: ALANINE AMINOTRANSFERASE 106 U/L (12-78); ALBUMIN 2.7 G/DL (3.4-5.0); ALBUMIN/GLOBULIN RATIO 0.6 (1.1-1.5); ALKALINE PHOSPHATASE 175 IU/L (46-116); ANION GAP 10 (8-16); ASPARTATE AMINO TRANSFERASE 25 U/L (10-37); BILIRUBIN,TOTAL 0.1 MG/DL (0.1-1.0); BLOOD UREA NITROGEN 60 MG/DL (7-18); BUN/CREATININE RATIO 22.6 (10.0-20.0); CALCIUM 8.6 MG/DL (8.5-10.1); CHLORIDE 100 MMOL/L (99-107); CREATININE 2.65 MG/DL (0.60-1.10); GLUCOSE 100 MG/DL (70-104); POTASSIUM 3.8 MMOL/L (3.5-5.1); SODIUM 131 MMOL/L (135-145); TOTAL CARBON DIOXIDE 20.7 MMOL/L (24-32); TOTAL PROTEIN 6.9 G/DL (6.4-8.2); eCRCL 44 ML/MIN; eGFR 27 ML/MIN
--- NOTE | 2025-02-03 11:07 | RADIOLOGY REPORT ---
CHEST XRAY: 1 view(s) was obtained HISTORY: CP COMPARISON: None. FINDINGS: Expansion: Normal. Lungs parenchyma: The lungs are clear. Pleura: No pleural effusion. No pneumothorax. Mediastinum: Heart size is normal. Chest Wall, upper abdomen and lower Neck: Unremarkable. Parallel arlyn and screw fixation of the entirety of the thoracic spine and imaged portion of the lumba r spine. IMPRESSION: 1. No acute cardio pulmonary findings
[2025-02-03 11:11] LABS: PRO BRAIN NATRIURETIC PEPTIDE 109 PG/ML (0-125)
[2025-02-03] MEDS: DEXTROSE 15 GM of carb/4 tabs (each vial/BOTTLE has 4 tablets) ONE (12:27)
[2025-02-03] MEDS: normal saline 1000ML IV soln IVB ONE (13:14)
[2025-02-03] MEDS ORDERED: HYDROcodone/acetaminophen 10/325mg tab PO PRN (13:50)
[2025-02-03] MEDS ORDERED: potassium Cl 40MEQ/1/2NS 520ml 520 ML IV PRN (13:50)
[2025-02-03] MEDS ORDERED: magnesium sulf-water 2g/50mL 50 ML IV PRN (13:50)
[2025-02-03] MEDS ORDERED: morphine 2 MG/ML inj. syringe IV PRN ×2 (13:50)
[2025-02-03] MEDS ORDERED: potassium Cl 20 mEq SR tablet PO PRN ×2 (13:50)
[2025-02-03] MEDS ORDERED: magnesium sulf-water 4G/100mL 100 ML IV PRN (13:50)
[2025-02-03] MEDS ORDERED: acetaminophen 325mg tablet PO PRN (13:50)
[2025-02-03] MEDS ORDERED: magnesium Cl slow-release 64mg tablet PO PRN (13:50)
[2025-02-03] MEDS ORDERED: ondansetron/PF 4mg/2ml inj IV PRN (13:50)
[2025-02-03] MEDS ORDERED: glucagon, human recombinant 1mg kit SUBCUT PRN (13:55)
[2025-02-03] MEDS ORDERED: nitroGLYCERIN 0.4mg SUBLingual tab SL PRN (13:55)
[2025-02-03] MEDS ORDERED: DEXTROSE 15 GM of carb/4 tabs (each vial/BOTTLE has 4 tablets) PO PRN ×2 (13:55)
[2025-02-03] MEDS ORDERED: metoprolol tartrate 1mg/ml inj IV PRN (13:55)
[2025-02-03] MEDS ORDERED: aminophylline 500mg/20ml vial IV PRN (13:55)
[2025-02-03] MEDS ORDERED: dextrose 50%-water 50ml dispensing syringe IV PRN ×2 (13:55)
[2025-02-03] MEDS ORDERED: LOSA1TAB39 PO (14:42)
[2025-02-03] MEDS ORDERED: [UNRECOGNIZED DRUG - CODE] PO (14:42)
[2025-02-03] MEDS ORDERED: CARV6.253 PO (14:42)
[2025-02-03] MEDS ORDERED: aminophylline 250mg/10ml inj. IV PRN (15:14)
[2025-02-03] MEDS: regadenoson 0.4mg/5ml syringe IV PRN (15:18)
[2025-02-03] MEDS: normal saline 1000ml 1,000 ML IV SCH (16:28)
[2025-02-03] MEDS: acetaminophen 325mg tablet PO PRN (16:28)
[2025-02-03] MEDS: INSULIN LISPRO 100 UNIT/ML INSULN.PEN MULTI-DOSE SQ SCH (17:10)
--- NOTE | 2025-02-03 18:50 | RADIOLOGY REPORT ---
EXAM: NM NM NISHI SCAN History: chest pain r/o ACS Comparison Study: None TECHNIQUE: Resting myocardial perfusion imaging was performed approximately 30 minutes following the injection of 8.23 mCi of Tc-99m sestamibi. Peak pharmacologic stress, the patient was injected with 3 4.15 mCi of Tc-99m sestamibi. Gated post stress images were acquired in the supine and prone position s approximately 30 minutes after stress and left ventricular ejection fraction (LVEF) was calculated. Findings: The overall quality of the study is adequate. The left ventricular cavity is noted to be normal. There is no evidence of abnormal lung activity. Additionally, the right ventricle appears normal. Myocardial perfusion images demonstrate homogeneous tracer distribution throughout the myocardium wit h a small size, moderate intensity perfusion defect in the basal to mid inferior wall which is partia lly reversible. Gated imaging reveals hypokinetic wall motion with a calculated LVEF of 56 % with end-diastolic volum e of 95 mL at stress. Impression: 1. Small size, moderate intensity perfusion defect in the basal to mid inferior wall which is partial ly reversible favored to reflect ischemia. 2. Overall gated left ventricular systolic function was hypokinetic with calculated LVEF of 56 % at s tress. 3. No left ventricular dilatation.
[2025-02-03] MEDS: heparin, porcine 5000 units/ml vial SQ SCH (20:05)
[2025-02-03] MEDS: HYDROcodone/acetaminophen 5mg/325mg tablet PO PRN (20:07)
[2025-02-03] MEDS: INSULIN LISPRO 100 UNIT/ML INSULN.PEN MULTI-DOSE SQ ONE (21:09)
--- NOTE | 2025-02-03 21:21 | HISTORY AND PHYSICAL ---
History & Physical Providers to CC ~ History of Present Illness Reason for Admit\Complaint: CHEST PAIN History of Present Illness 39-year-old male with past medical history of hyperlipidemia, hypertension, type 1 diabetes mellitus, h/o spinal fusion, left foot osteomyelitis status post great toe amputation presented to the ER with the complaints of chest pain described as chest pressure with accompanying shortness of breath and lightheadedness. Patient reports that he was at outpatient wound care when he reported symptoms to wound care provider who request he present to the emergency department. The patient states that there was no nausea vomiting.The patient also feel lightheaded. He hardly ate anything since morning.Patient does not smoke and there is no history of coronary artery disease in the family. When I evaluated the patient patient denied any chest pain to me and looked comfortable. As per patient his hemoglobin A1c currently is 9.8 but it was 13.5 couple of months back. Patient denied any other symptoms to me Allergies: Coded Allergies: gabapentin (Unverified Adverse Reaction, Intermediate, SEIZURES/WT GAIN, 09/29/24) ADV REACTION ONLY EXPERIENCED ONLY AFTER CORRECTION TREATENT PER PT Home Medications Home Medications Active Reported Ciprofloxacin HCl (Ciprofloxacin) 500 Mg Tablet 1 Tab PO BID Carvedilol 6.25 Mg Tablet 1 Tab PO BID Losartan-Hctz 100-25 Mg Tab (Losartan/Hydrochlorothiazide) 100 Mg-25 Mg Tablet 1 Tab PO DAILY Lantus* (Insulin Glargine) 100 Unit/1 Ml Vial 41 Unit SQ HS Insulin Lispro Kwikpen U-100 (Insulin Lispro) 100 Unit/Ml Insuln.pen SQ Benzonatate 100 Mg Capsule 1 Tab PO TID PRN Atorvastatin Calcium 40 Mg Tablet 1 Tab PO HS Acetaminophen 500 Mg Tablet 2 Tab PO Q6H PRN Omeprazole 20 Mg Capsule.dr 40 Mg PO ONCE Flomax* (Tamsulosin HCl) 0.4 Mg Cap.sr.24h 1 Tab PO BKF Past Medical History Past Medical History Left foot osteomyelitis, left foot cellulitis, history of acute kidney injury, hypokalemia, uncontrolled type 1 diabetes, hypertensive emergency, obesity, hyperlipidemia Past Surgical History Surgical History Comment status post left great toe partial amputation.back surgery Gomez rods entire thoracic spine to L2 Family History Family History: FH: CVA (cerebrovascular accident) MOTHER FH: hypothyroidism maternal grandmother Past Social History Social History Comment Patient follows in [facility] with MAYRA Urena. Quit smoking in July 2024He drinks alcohol 5-6 times in a year, wine, very occasionally . He denied meth, marijuana, LSD. He lives in [place] with his parents ROS ROS Review of system as mentioned above in HPI rest of the review of system unremarkable Exam Vitals: Vital Signs Date Time Temp Pulse Resp B/P (MAP) Pulse Ox O2 Delivery O2 Flow Rate FiO2 02/03/25 20:07 18 02/03/25 17:16 97.4 95 134/62 (86) 99 02/03/25 16:37 0 02/03/25 15:25 Room Air General: General-patient not in any acute distress, alert awake oriented, obese age- appropriate/looks comfortable HEENT-atraumatic normocephalic, neck supple without elevated JVD, no thyromegaly or carotid bruit. No lymphadenopathy bilaterally. Eyes-no icterus or pallor seen in eyes Chest-clear to auscultation bilaterally, breathing nonlabored no tachypnea, no wheezing, no crepitation, no crackles. No chest pain on palpation Heart-S1-S2 normal, regular heart rate no murmur Abdomen bowel sounds positive on auscultation, soft nondistended nontender no guarding, no rigidity Skin no active skin rash Neurology-grossly intact, nonfocal alert awake oriented Extremity- no pedal edema able to move all 4 extremities Psychiatry - patient is not confused or agitated cooperated during physical examination Diagnostic Data Last Recorded Lab Results: 02/03/25 1032 02/03/25 1032 Additional Plan # 39-year-old male with past medical history of hyperlipidemia, hypertension, type 1 diabetes mellitus, h/o spinal fusion, left foot osteomyelitis status post great toe amputation presented to the ER with the complaints of chest pain When I evaluated the patient patient denied any chest pain to me and looked comfortable. Ordered echo cardiogram in [facility]. We will contact industry segment specialist in a.m. # Other comorbidities include hyperlipidemia hypertension history of spinal fusion and back issues. we will do home medication reconciliation once updated in electronic medical records. # Type 2 diabetes uncontrolled started on hypo and hyperglycemic protocol. As per patient his hemoglobin A1c currently is 9.8 but it was 13.5 couple of months back. Patient denied any other symptoms to me # status discussed with the patient patient wishes to stay full code Patient's current condition is guarded I will continue to follow patient in am Date of Service: Feb 03, 2025 Billing Provider: BUDDY LEE MD Common Visit Codes: 92599-[id number] INP/OBS CARE (HIGH) Secondary Visit Codes: 89697-[id number] CARE PLAN 30 MINUTES BUDDY LEE MD Feb 03, 2025 21:21
[2025-02-03] MEDS ORDERED: benzonatate 100mg capsule PO PRN (21:35)
[2025-02-04] VITALS (8 sets, daily range): BP systolic 151–175; BP diastolic 93–105; PULSE 79–102; RESP 15–19; TEMP 97.4–97.8; O2SAT 96–99
[2025-02-04] MEDS: tamsulosin 0.4mg capsule PO SCH (00:14)
[2025-02-04] MEDS: losartan 50mg tablet PO SCH (00:15)
[2025-02-04] MEDS: carvedilol 6.25mg tablet PO SCH (00:16)
[2025-02-04] MEDS: HYDROchlorothiazide 25mg tablet PO SCH (00:16)
[2025-02-04] MEDS: atorvastatin 20mg tablet PO SCH ×2 (00:17→20:29)
[2025-02-04 06:42] LABS: BASOPHILS % (AUTO) 0.6 % (0-1); EOSINOPHILS # (AUTO) 0.4 X10'3 (0-0.9); EOSINOPHILS % (AUTO) 5.5 % (0-6); HEMATOCRIT 36.8 % (42.0-52.0); HEMOGLOBIN 12.3 g/dl (14.0-17.9); LYMPHOCYTES # (AUTO) 1.8 X10'3 (1.1-4.8); LYMPHOCYTES % (AUTO) 24.8 % (21-51); MEAN CORPUSCULAR HEMOGLOBIN 28.9 PG (27.0-31.0); MEAN CORPUSCULAR HGB CONC 33.6 g/dL (33.0-36.5); MEAN CORPUSCULAR VOLUME 86.3 FL (78-98); MEAN PLATELET VOLUME 7.7 FL (7.4-10.4); MONOCYTES # (AUTO) 0.6 X10'3 (0-0.9); MONOCYTES % (AUTO) 7.7 % (2-12); NEUTROPHILS # (AUTO) 4.5 X10'3 (1.8-7.7); NEUTROPHILS % (AUTO) 61.4 % (42-75); PLATELET COUNT 377 X10'3 (140-440); RED BLOOD COUNT 4.26 X10'6 (4.70-6.10); RED CELL DISTRIBUTION WIDTH 12.6 % (11.5-14.5); WHITE BLOOD COUNT 7.3 X10'3 (4.5-11.0)
[2025-02-04 07:10] LABS: ALANINE AMINOTRANSFERASE 75 U/L (12-78); ALBUMIN 2.3 G/DL (3.4-5.0); ALBUMIN/GLOBULIN RATIO 0.7 (1.1-1.5); ALKALINE PHOSPHATASE 124 IU/L (46-116); ANION GAP 9 (8-16); ASPARTATE AMINO TRANSFERASE 27 U/L (10-37); BILIRUBIN,TOTAL 0.2 MG/DL (0.1-1.0); BLOOD UREA NITROGEN 51 MG/DL (7-18); BUN/CREATININE RATIO 20.7 (10.0-20.0); CALCIUM 8.4 MG/DL (8.5-10.1); CHLORIDE 106 MMOL/L (99-107); CREATININE 2.46 MG/DL (0.60-1.10); GLUCOSE 251 MG/DL (70-104); POTASSIUM 4.1 MMOL/L (3.5-5.1); SODIUM 136 MMOL/L (135-145); TOTAL CARBON DIOXIDE 21.3 MMOL/L (24-32); TOTAL PROTEIN 5.7 G/DL (6.4-8.2); eCRCL 47 ML/MIN; eGFR 30 ML/MIN
[2025-02-04] MEDS ORDERED: tamsulosin 0.4mg capsule PO SCH (07:30)
[2025-02-04] MEDS ORDERED: HYDROchlorothiazide 25mg tablet PO SCH (08:00)
[2025-02-04] MEDS ORDERED: carvedilol 6.25mg tablet PO SCH (08:00)
[2025-02-04] MEDS ORDERED: losartan 50mg tablet PO SCH (08:00)
[2025-02-04] MEDS: aspirin 81mg, enteric-coated 1 TAB TABLET.DR PO SCH (10:44)
[2025-02-04] MEDS: hydrALAZINE 20mg/ml inj. IV PRN (10:46)
[2025-02-04] MEDS: cloNIDine 0.1 mg tablet PO SCH (15:09)
[2025-02-04] MEDS: amLODIPine 5mg tablet PO SCH (15:09)
--- NOTE | 2025-02-04 17:17 | CARDIOLOGY REPORT ---
APPROVED REPORT EXAM: Comprehensive 2D, Doppler, and color-flow Echocardiogram. Patient Location: ED11 Blood Pressure: 175/104 mmHg Heart Rate: 96 bpm Rhythm: NSR Indications Chest Pain Hypertension Diabetes SOB No [place] sewer Previous echo 07/19/17 [facility] 60-65% EF 2D Dimensions LA Diam3.5 cm IVSd 1.3 (0.7-1.1cm) LVDd 4.1 cm PWd 1.2 (0.7-1.1cm) IVSs 2.2 (0.8-1.2cm) LVDs 2.3 (2.5-4.0cm) Aortic Root(2D) 3.7 cm PWs 1.6 (0.8-1.2cm) LVOT Diameter 2.36 (1.8-2.4cm) LVEF(%) 74.6 (>50%) IVC 14.61 mmFS (%) 43.0 % SV 54.2 ml CO 5.3 L/min M-Mode Dimensions MV EPSS 1.0 (<0.5cm) Aortic Valve AoV Peak Maciej. 152.0 cm/s AoV VTI 24.2 cm AO Peak GR. 9.2 mmHg AO Mean GR. 5 mmHg LVOT VTI 23.47 cm LVOT Peak Maciej. 104.7 cm/s MARII(VTI)/BSA 4.23 cm2/m2 MARII (VTI) 4.23 cm2 Mitral Valve MV E Velocity 65.1 cm/s MV Peak Gr. 5 mmHg MV DECEL TIME 196 ms MV A Velocity 87.1 cm/s MV PHT 56 ms E/A Ratio 0.7 MVA (PHT) 3.93 cm2 MV GTge151.7 cm/s TDI Medial E' P. V 8.72 cm/s E/Medial E' 7.5 Tricuspid Valve RAP ESTIMATE 10 mmHg Pulmonary Vein S1 Velocity 52.6 cm/s D2 Velocity 31.4 cm/s PVa Oonwwpgx22.4 cm/s PVa [id number] msec LEFT VENTRICLE Normal LV size and function. Mild concentric hypertrophy. Overall LVEF is 65-70%. RIGHT VENTRICLE RV is normal size and function. ATRIA The left atrium size is normal. AORTIC VALVE Trileaflet AV appears sclerotic without stenosis. No insufficiency. MITRAL VALVE MV is thickened with mild annular thickening and no stenosis. Trace mitral regurgitation. TRICUSPID VALVE The tricuspid valve is normal in structure. Trace tricuspid regurgitation. PULMONIC VALVE The pulmonary valve is normal in structure. Trace pulmonic regurgitation. GREAT VESSELS The aortic root is normal in size. The IVC is normal in size and collapses >50% with inspiration. PERICARDIUM There is no pericardial effusion. Other Information Study Quality: Adequate Conclusion Overall LVEF is 65-70%. Normal LV size and function. Mild concentric hypertrophy. RV is normal size and function. Trileaflet AV appears sclerotic without stenosis. No insufficiency. Trace mitral regurgitation. Trace tricuspid regurgitation. Trace pulmonic regurgitation. There is no pericardial effusion.
[2025-02-04] MEDS: INSULIN LISPRO 100 UNIT/ML INSULN.PEN MULTI-DOSE SQ SCH (18:07)
--- NOTE | 2025-02-04 18:51 | PROGRESS NOTE ---
Daily Progress Note Providers to CC ~ Antibiotic Timeout Antibiotic Ordered?: No Subjective Patient was seen twice today. First I saw the patient and discuss everything all labs and diagnostic workup and further care plan and then later I saw the patient in presence of patient's mother and father and discuss everything again in detail. Patient was also evaluated by incident response specialist in order placed as recommended by incident response specialist. He recommended strict control of diabetes , hypertension, lipid in outpatient setting with primary care physician. Medical management recommended and discussed with the patient and patient and family member agreed with plan . Objective Vital Signs Date Time Temp Pulse Resp B/P (MAP) Pulse Ox O2 Delivery O2 Flow Rate FiO2 02/04/25 16:05 102 02/04/25 15:30 97.8 19 164/105 (124) 98 Room Air 02/03/25 16:37 0 Result Diagram: 02/04/25 0613 02/04/25612 General-patient not in any acute distress, alert awake oriented, obese age- appropriate/looks comfortable HEENT-atraumatic normocephalic, neck supple without elevated JVD, no thyromegaly or carotid bruit. No lymphadenopathy bilaterally. Eyes-no icterus or pallor seen in eyes Chest-clear to auscultation bilaterally, breathing nonlabored no tachypnea, no wheezing, no crepitation, no crackles. No chest pain on palpation Heart-S1-S2 normal, regular heart rate no murmur Abdomen bowel sounds positive on auscultation, soft nondistended nontender no guarding, no rigidity Skin no active skin rash Neurology-grossly intact, nonfocal alert awake oriented Extremity- no pedal edema able to move all 4 extremities Psychiatry - patient is not confused or agitated cooperated during physical examination Problem\Assessment\Plan # 39-year-old male with past medical history of hyperlipidemia, hypertension, type 1 diabetes mellitus, h/o spinal fusion, left foot osteomyelitis status post great toe amputation presented to the ER with the complaints of chest pain When I evaluated the patient patient denied any chest pain to me and looked comfortable. [facility] [place] [facility] We will contact incident response specialist in a.m. # Other comorbidities include hyperlipidemia hypertension history of spinal fusion and back issues. home medication reconciliation updated in electronic medical records. # uncontrolled hypertension-patient is started on amlodipine and clonidine besides losartan. Patient gets dizzy with clonidine and gets swelling over ankles due to amlodipine which is a side effect of the medication discussed in visit # Type 2 diabetes uncontrolled started on hypo and hyperglycemic protocol. As per patient his hemoglobin A1c currently is 9.8 but it was 13.5 couple of months back. Patient denied any other symptoms to me # status discussed with the patient patient wishes to stay full code Patient was seen twice today. First I saw the patient and discuss everything all labs and diagnostic workup and further care plan and then later I saw the patient in presence of patient's mother and father and discuss everything again in detail. Patient was also evaluated by incident response specialist in order placed as recommended by incident response specialist. He recommended strict control of diabetes , hypertension, lipid in outpatient setting with primary care physician. Medical management recommended and discussed with the patient and patient and family member agreed with plan . Patient's current condition is guarded I will continue to follow patient in am. Date of Service: Feb 04, 2025 Billing Provider: BUDDY LEE MD Common Visit Codes: [id number] INP/OBS CARE(HIGH) BUDDY LEE MD Feb 04, 2025 18:51
[2025-02-04] MEDS: carVEDilol 12.5mg tablet PO SCH (20:28)
[2025-02-04] MEDS: insulin glargine (Lantus) pen - multi-dose SQ SCH (20:47)
[2025-02-04] MEDS: INSULIN LISPRO 100 UNIT/ML INSULN.PEN MULTI-DOSE SQ ONE (21:31)
[2025-02-05 02:00] VITALS: BP 118/82; PULSE 74; RESP 13; TEMP 97.6; O2SAT 99
[2025-02-05 06:00] VITALS: BP 117/77; PULSE 79; RESP 15; TEMP 97.1; O2SAT 99
[2025-02-05 07:16] LABS: BASOPHILS # (AUTO) 0.1 X10'3 (0-0.2); BASOPHILS % (AUTO) 1.1 % (0-1); EOSINOPHILS # (AUTO) 0.5 X10'3 (0-0.9); EOSINOPHILS % (AUTO) 7.5 % (0-6); HEMATOCRIT 34.8 % (42.0-52.0); LYMPHOCYTES % (AUTO) 32.1 % (21-51); MEAN CORPUSCULAR HEMOGLOBIN 29.3 PG (27.0-31.0); MEAN CORPUSCULAR HGB CONC 34.5 g/dL (33.0-36.5); MEAN CORPUSCULAR VOLUME 84.9 FL (78-98); MEAN PLATELET VOLUME 7.6 FL (7.4-10.4); MONOCYTES # (AUTO) 0.6 X10'3 (0-0.9); MONOCYTES % (AUTO) 9.4 % (2-12); NEUTROPHILS % (AUTO) 49.9 % (42-75); PLATELET COUNT 365 X10'3 (140-440); RED CELL DISTRIBUTION WIDTH 12.9 % (11.5-14.5); WHITE BLOOD COUNT 6.1 X10'3 (4.5-11.0)
[2025-02-05 07:45] LABS: ALANINE AMINOTRANSFERASE 68 U/L (12-78); ALBUMIN 2.3 G/DL (3.4-5.0); ALBUMIN/GLOBULIN RATIO 0.7 (1.1-1.5); ALKALINE PHOSPHATASE 118 IU/L (46-116); ANION GAP 6 (8-16); ASPARTATE AMINO TRANSFERASE 27 U/L (10-37); BILIRUBIN,TOTAL 0.2 MG/DL (0.1-1.0); BLOOD UREA NITROGEN 52 MG/DL (7-18); BUN/CREATININE RATIO 20.4 (10.0-20.0); CALCIUM 8.4 MG/DL (8.5-10.1); CHLORIDE 108 MMOL/L (99-107); CREATININE 2.55 MG/DL (0.60-1.10); GLUCOSE 99 MG/DL (70-104); POTASSIUM 4.2 MMOL/L (3.5-5.1); SODIUM 136 MMOL/L (135-145); TOTAL CARBON DIOXIDE 21.7 MMOL/L (24-32); TOTAL PROTEIN 5.7 G/DL (6.4-8.2); eCRCL 46 ML/MIN; eGFR 28 ML/MIN
[2025-02-05 08:00] VITALS: RESP 15; O2SAT 99
[2025-02-05] MEDS: isosorbide mononitrate 30mg tab.SR.24H PO SCH (08:50)
[2025-02-05] MEDS ORDERED: ISOS30TA84 PO (10:22)
[2025-02-05] MEDS ORDERED: ASPI-1071 PO (10:22)
[2025-02-05] MEDS ORDERED: LOSA50TA64 PO (10:22)
[2025-02-05] MEDS ORDERED: ATOR20TA66 PO (10:22)
[2025-02-05] MEDS ORDERED: CARV12.545 PO (10:22)
[2025-02-05] MEDS ORDERED: HYDR50TA46 PO (10:23)
[2025-02-05 11:00] VITALS: BP 126/74; PULSE 83; RESP 10; TEMP 97.3; O2SAT 99
--- NOTE | 2025-02-05 12:23 | PROGRESS NOTE ---
Progress Note Cardiology Providers to CC ~ Subjective Subjective Patient seen and examined again this morning Before discharge. No chest pain or shortness of breath. Patient tolerating new medications well. Objective Result Diagram: 02/05/2562702/05/25627 Objective General: Normal body habitus, no acute distress, HEENT: Sclerae clear, PERRL, gums without lesions or bleeding, oropharynx clear without erythema or exudate. Neck: Supple without enlargement of the thyroid, or lymphadenopathy, Chest: Normal size and shape, no tenderness, nonlabored breathing, Breath sounds clear to auscultation. Heart: Regular in rate and rhythm, S1 and S2 normal, no S3-S4 or murmurs. Abdomen: Soft, nontender, no organomegaly, bowel sounds present. Extremities: No edema cyanosis or clubbing. Left big toe amputated Problem\Assessment\Plan Additional Plan 1. 39-year-old male with mildly abnormal stress test: After discussing all the options patient and family have decided for medical therapy. Continue aspirin Beta blockers nitrates and statins. Patient to follow up with PMD. 2. Diabetes hypertension hyperlipidemia: Counseled on the coronary risk factor modification to keep Systolic blood pressure less than 130 mm of mercury LDL less than 55 mg % and hemoglobin A1c less than 7%. 3. History of kyphoscoliosis status post spine surgery 4. History of left big toe osteomyelitis status post amputation 5. Chronic kidney disease with a BUN of 52 creatinine of 2.55. Patient had seen a plaster machine operator in in renal. Patient has an upcoming follow up appointment PMD through which he is going to find a plaster machine operator in town. YESENIA PECK MD Feb 05, 2025 12:23
--- NOTE | 2025-02-05 15:40 | CONSULTATION ---
DATE OF CONSULTATION: 02/04/2025 DICTATING PHYSICIAN: ANGLE Winter MD CARDIOLOGY CONSULTATION REQUESTING PHYSICIAN: Corine Clemens MD REASON FOR EVALUATION: Mildly abnormal stress test. HISTORY OF PRESENTING ILLNESS: The patient is a 39-year-old mildly obese male with type 1 diabetes since age 16, hypertension, and hyperlipidemia, who was hospitalized on 02/03/2025 with shortness of breath, chest pressure, and lightheadedness. Apparently, the patient had a nonhealing wound in the right big toe, turned out to the osteomyelitis for which he required amputation in 08/2024 in [facility] and he is being followed at [facility]. When he mentioned these symptoms, he was asked to go to the emergency room and was subsequently hospitalized. The patient has not been able to exercise much because of his left big toe problem, ambulates around their house. Reports this time while going uphill, NYHA dyspnea class 2 to 3. The patient did also have chest pressure yesterday, but has not happened prior to that or after that. Overall, he is not feeling well in the last few weeks. MEDICATIONS: Atorvastatin, carvedilol, ciprofloxacin, insulin, losartan, omeprazole, and tamsulosin. PAST MEDICAL HISTORY: * Hypertension. * Hyperlipidemia. * Diabetes. * Left big toe osteomyelitis. * History of kyphosis requiring spinal fusion from T2 to L4 at [facility]. * He also had a bleeding ulcer in the stomach related to NSAID use requiring cauterization. 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 FAMILY HISTORY: The patient's parents were present during the evaluation. His father is 68 years old. He worked as a supervisor assembly room. Mother is 63 years old, raises [employer]. 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 SOCIAL HISTORY: Used to use tobacco in different forms including smoking from age 16, quit at age 38. Occasional alcohol. No history of substance abuse. REVIEW OF SYMPTOMS: HEENT: No significant visual or hearing impairment. RESPIRATORY: Exertional shortness of breath. MUSCULOSKELETAL: Back pain, arthralgias. CENTRAL NERVOUS SYSTEM: No stroke, TIA, or seizure. PSYCHIATRIC: No anxiety or depression. SKIN: None. ENDOCRINE: None. PHYSICAL EXAMINATION: VITAL SIGNS: Temperature 97.5, pulse 98, blood pressure 175/103. NECK: No JVD. Carotids are equally well felt. CARDIAC: Regular rate and rhythm. S1, S2 normal. No S3, S4. LUNGS: Clear to auscultation bilaterally. ABDOMEN: Soft, bowel sounds positive. EXTREMITIES: No edema, cyanosis, or clubbing. Left big toe has a wound, had surgery. LABORATORY DATA: Sodium 130, potassium 4.1, chloride 103, carbon dioxide 21, BUN 51, creatinine 2.46, WBC 7.3, hemoglobin 12.8, hematocrit 36.8, platelet count 377. DIAGNOSTIC DATA: Echocardiogram, ejection fraction 65% to 70%. Trace MR, TR, and WV. Myocardial perfusion scan showed small-sized mid inferior wall reversible defect. Overall LV function is 56%. No LV dilatation. IMPRESSION AND PLAN: * A 39-year-old male with a history of exertional fatigue, shortness of breath, and mild chest pain. Troponin is negative. Myocardial perfusion is mildly abnormal. The option of further treatment with medical therapy versus coronary angiography. Risks, benefits, and alternative options discussed in detail with the patient. In view of his CKD, both the patient and his family want conservative therapy alone. Understands the risks and the benefits. Hence, recommend aspirin. Double his carvedilol to 12.5 mg p.o. b.i.d. Add Imdur 30 mg p.o. daily. * Diabetes, hypertension and hyperlipidemia. Extensively counseled on coronary risk factor modification to keep LDL less than 55 mg%, systolic blood pressure less than 130 mmHg. Hemoglobin less than 7%. * Other comorbidities include history of kyphoscoliosis status post spinal surgery, left big toe osteomyelitis status post amputation. * Co-tobacco use. ANGLE Winter MD TID: [id number] RECEIPT: [id number] /[facility]
--- NOTE | 2025-02-05 18:01 | DISCHARGE SUMMARY ---
Discharge Summary Providers to CC ~ Discharge Summary Admission Diagnosis: chest pain r/o ACS , type 1 DM , ckd3 Hospital Course DATE OF ADMISSION: February 03, 2025 DATE OF DISCHARGE:February 05, 2025 CBC testing done on February 05, 2025 WBC 6.1 hemoglobin 12.0 hematocrit 34.8 platelet count 365. Serum chemistry done on February 05, 2025 sodium 136 potassium 4.2 creatinine 2.55 GFR 28 normal liver enzymes alkaline phosphatase 118. ProBNP 109, troponins unremarkable NM NISHI SCAN-Impression: 1. Small size, moderate intensity perfusion defect in the basal to mid inferior wall which is partially reversible favored to reflect ischemia. 2. Overall gated left ventricular systolic function was hypokinetic with calculated LVEF of 56 % at stress. 3. No left ventricular dilatation. ECHOCARDIOGRAM-Conclusion Overall LVEF is 65-70%. Normal LV size and function. Mild concentric hypertrophy. RV is normal size and function. Trileaflet AV appears sclerotic without stenosis. No insufficiency. Trace mitral regurgitation. Trace tricuspid regurgitation. Trace pulmonic regurgitation. There is no pericardial effusion. CHEST,SINGLE VIEW-IMPRESSION: 1. No acute cardio pulmonary findings Discharge Diagnosis\Comment: mildly abnormal stress test, uncontrolled Diabetes , uncontrolled hypertension , hyperlipidemia , History of kyphoscoliosis status post spine surgery History of left big toe osteomyelitis status post amputation, Chronic kidney disease Operations\Procedures: None Consultants: Dr. Winter Complications: None Condition on DC: Stable New Medications: Hydralazine HCl (Hydralazine HCl) 50 Mg Tablet 0.5 TAB PO Q12H for 30 Days, #30 TAB 0 Refills Aspirin (Ecotrin*) 81 Mg Tablet.dr 1 TAB PO DAILY for 30 Days, #30 TAB.SR Atorvastatin Calcium (Atorvastatin Calcium) 20 Mg Tablet 80 MG PO HS for 30 Days, #30 TAB Carvedilol (Carvedilol) 12.5 Mg Tablet 12.5 MG PO BID for 30 Days, #60 TAB Isosorbide Mononitrate (Isosorbide Mononitrate Er) 30 Mg Tab.er.24h 30 MG PO DAILY for 60 Days, #30 TAB.SR Losartan Potassium (Losartan Potassium) 50 Mg Tablet 100 MG PO HS for 30 Days, #30 TAB Continued Medications: Acetaminophen (Acetaminophen) 500 Mg Tablet 2 TAB PO Q6H PRN for pain Benzonatate (Benzonatate) 100 Mg Capsule 1 TAB PO TID PRN for cough Insulin Glargine,Hum.rec.anlog* (Lantus*) 100 Unit/1 Ml Vial 41 UNIT SQ HS Insulin Lispro (Insulin Lispro Kwikpen U-100) 100 Unit/Ml Insuln.pen SQ Omeprazole (Omeprazole) 20 Mg Capsule.dr 40 MG PO ONCE Tamsulosin Hcl* (Flomax*) 0.4 Mg Cap.sr.24h 1 TAB PO BKF Discontinued Medications: Atorvastatin Calcium (Atorvastatin Calcium) 40 Mg Tablet 1 TAB PO HS Carvedilol (Carvedilol) 6.25 Mg Tablet 1 TAB PO BID Ciprofloxacin HCl (Ciprofloxacin HCl) 500 Mg Tablet 1 TAB PO BID Losartan/Hydrochlorothiazide (Losartan-Hctz 100-25 Mg Tab) 100 Mg-25 Mg Tablet 1 TAB PO DAILY Discharge Summary: # 39-year-old male with past medical history of hyperlipidemia, hypertension, type 1 diabetes mellitus, h/o spinal fusion,bleeding ulcer in the stomach related to NSAID use requiring cauterization. left foot osteomyelitis status post great toe amputation presented to the ER with the complaints of chest pain # abnormal stress testing-cardiology consultation done by Dr Winter In view of his CKD, both the patient and his family want conservative therapy alone. Understands the risks and the benefits. recommended aspirin. Double his carvedilol to 12.5 mg p.o. b.i.d. Add Imdur 30 mg p.o. daily. # Other comorbidities include hyperlipidemia hypertension history of spinal fusion and back issues. home medication reconciliation updated in electronic medical records. # uncontrolled hypertension-patient is started on amlodipine and clonidine besides losartan. Patient gets dizzy with clonidine and gets swelling over ankles due to amlodipine which is a side effect of the medication discussed in visit # Type 2 diabetes uncontrolled started on hypo and hyperglycemic protocol. As per patient his hemoglobin A1c currently is 9.8 but it was 13.5 couple of months back. Patient's clinical condition was stable throughout the hospitalization. He is getting discharged home with his parents in stable condition. Patient is seen and examined on the day of discharge. Discharge instructions provided to the patient. All labs diagnostic workup and discharge plan discussed with the patient in detail before his discharge. All questions and concerns answered to the best of my professional medical knowledge General-patient not in any acute distress, alert awake oriented, obese age- appropriate/looks comfortable HEENT-atraumatic normocephalic, neck supple without elevated JVD, no thyromegaly or carotid bruit. No lymphadenopathy bilaterally. Eyes-no icterus or pallor seen in eyes Chest-clear to auscultation bilaterally, breathing nonlabored no tachypnea, no wheezing, no crepitation, no crackles. No chest pain on palpation Heart-S1-S2 normal, regular heart rate no murmur Abdomen bowel sounds positive on auscultation, soft nondistended nontender no guarding, no rigidity Skin no active skin rash, status post left great toe amputation Neurology-grossly intact, nonfocal alert awake oriented Extremity- no pedal edema able to move all 4 extremities *Problems/Diagnosis: (1) CKD stage 3 due to type 1 diabetes mellitus Status: Acute (2) Acute chest pain Status: Acute Total Time Spent on D/C: > 30 Minutes Date of Service: Feb 05, 2025 Billing Provider: BUDDY LEE MD Common Visit Codes: 38131-IMK/OBS DISCH DAY >30min BUDDY LEE MD Feb 05, 2025 17:48
== END 2025-02-05 12:48 | disposition home or self-care (01) | DRG 203 ==
LOC: ER 10:12 → ED HOLD 13:53 → PCU 3S 17:00
PROVIDERS: ADMIT Internal Medicine; ATTEND Internal Medicine
PROC: 4A02XM4 Measurement of Cardiac Total Activity, External Approach (ICD-10-PCS; principal; 2025-02-03)
PROC: 3E033HZ Introduction of Radioactive Substance into Peripheral Vein, Percutaneous Approach (ICD-10-PCS; 2025-02-03)
DX: R07.89 Other chest pain (principal); E11.649 Type 2 diabetes mellitus with hypoglycemia without coma; N17.9 Acute kidney failure, unspecified; E11.22 Type 2 diabetes mellitus with diabetic chronic kidney disease; E03.9 Hypothyroidism, unspecified; E78.5 Hyperlipidemia, unspecified; I12.9 Hypertensive chronic kidney disease with stage 1 through stage 4 chronic kidney disease, or unspecified chronic kidney disease; N18.30 Chronic kidney disease, stage 3 unspecified; Z79.4 Long term (current) use of insulin; Z79.899 Other long term (current) drug therapy; Z87.891 Personal history of nicotine dependence; Z98.1 Arthrodesis status; Z87.11 Personal history of peptic ulcer disease; Z88.8 Allergy status to other drugs, medicaments and biological substances
CPT/HCPCS: 36415; 71045; 78452; 80053; 82948; 83880; 84484; 85025; 87081; 93005; 93017; 93306; 99285; A4649; A6196; A6446; A6449; A9500; G0378; J0360; J1644; J1815; J2785; J7030

== ENCOUNTER 2025-03-16 23:46 | Emergency (ER) | payer MEDICAID ==
[~2025-03-16] VITALS: Ht 195.6 cm; Wt 130.0 kg
[~2025-03-16 23:46] MED LIST changes: -AMLO10TA13 PO; +ASPI-1071 PO; +ATOR20TA66 PO; -ATOR40TA71 PO; -CARV-50 PO; +CARV12.545 PO; -CYCL-1 PO; -ERGO500054 PO; -GABA-530 PO; +HYDR50TA46 PO; +ISOS30TA84 PO; -LACT1CAP26 PO; -LEVO750T68 PO; -LOSA100T58 PO; +LOSA50TA64 PO; -METR-159 PO; -TORS10TA17 PO
--- NOTE | 2025-03-16 23:56 | Physician Documentation ---
History of Present Illness ~ Chief Complaint: Hypoglycemia Stated Complaint: LOW BLOOD SUGAR M ALS Time Seen by MD: 23:53 OK to notify your PCP?: Yes Primary Medical Doctor: Dr Newberry Source: patient, RN/MD, EMS, RN notes reviewed, EMS notes reviewed, old records Mode of Arrival: EMS Exam Limitations: no limitations HPI 39 year old male with history of diabetes seen in bed 10 presents to the emergency department via EMS for complaints of low blood sugar. Per EMS as they arrived on scene they noted his blood sugar to be 23. Patient states that he was just about to eat dinner when he came to with an ice cream in his hand. He states he cannot recall what happened. He endorses chills, nausea, and vomiting. Patient denies excessive insulin use. Medication Reconciliation Allergies: Coded Allergies: gabapentin (Unverified Adverse Reaction, Intermediate, SEIZURES/WT GAIN, 09/29/24) ADV REACTION ONLY EXPERIENCED ONLY AFTER EQUAL OPPORTUNITY ASSISTANT TREATENT PER PT Scheduled Aspirin (Ecotrin*), 1 TAB PO DAILY Atorvastatin Calcium (Atorvastatin Calcium), 80 MG PO HS Carvedilol (Carvedilol), 12.5 MG PO BID Hydralazine HCl (Hydralazine HCl), 0.5 TAB PO Q12H Insulin Glargine,Hum.rec.anlog* (Lantus*), 41 UNIT SQ HS, (Reported) Isosorbide Mononitrate (Isosorbide Mononitrate Er), 30 MG PO DAILY Losartan Potassium (Losartan Potassium), 100 MG PO HS Omeprazole (Omeprazole), 40 MG PO ONCE, (Reported) Tamsulosin Hcl* (Flomax*), 1 TAB PO BKF, (Reported) Scheduled PRN Acetaminophen (Acetaminophen), 2 TAB PO Q6H PRN for pain, (Reported) Benzonatate (Benzonatate), 1 TAB PO TID PRN for cough, (Reported) Miscellaneous Medications Insulin Lispro (Insulin Lispro Kwikpen U-100), SQ, (Reported) Past Medical History Past Medical History: Hypertension, Diabetes, Chronic Back Pain Past Surgical History: orthopedic surgeries, other Patient History: FH: CVA (cerebrovascular accident) MOTHER FH: hypothyroidism maternal grandmother Alcohol Use: Occasionally Drug Use: none Lives with: S/O Lives In: Home Occupation: disabled Review of Systems All Other Systems at this time: Reviewed and Negative ROS As stated above in the HPI, otherwise all systems are reviewed and negative. Physical Exam Vital Signs: RN Vital Signs have been reviewed: Yes, Temperature: 98.2, Source: Temporal, Heart Rate: 98, Respiratory Rate: 18, BP: 203/109, Pulse Oximetry: 99, Weight: 130.000 Oxygen Flow Rate: 0 Pulse Oximetry Reflects: adequate oxygenation Physical Exam General: The patient is well developed, well nourished, nontoxic appearing and is in no acute distress. Skin: [place], warm and dry with no rashes. HEENT: Head was normocephalic and atraumatic. Eyes - pupils equal, round, reactive to light and accommodation. Extraocular movements were intact. Conjunctivae were nonicteric. Ears - bilateral tympanic membranes were normal. The mouth and oropharynx were clear with moist mucous membranes. There were no pharyngeal exudates or erythema. Neck: Supple and nontender. There was no jugular venous distention, lymphadenopathy, thyromegaly or masses. Chest: Clear to auscultation bilaterally without wheezes, rales or rhonchi. No accessory muscle use. No dullness to percussion. Heart: Rate regular and rhythmic. S1, S2. No murmurs. Palpation of the chest wall was normal. No rubs or thrills. Abdomen: Soft, nontender and nondistended. Positive bowel sounds. No guarding or rebound. No hepatosplenomegaly or palpable masses. Extremities: Left great toe amputation. No cyanosis, clubbing or edema. The patient moves all extremities. Pulses were equal and symmetric. Neurologic: Cranial nerves II-XII were intact. Sensation was intact to light touch throughout. Motor strength was 5/5 in all four extremities. Deep tendon reflexes were intact in both upper and lower extremities. Psychologic: The patient was oriented to person, place and time. The patient demonstrated appropriate judgement and insight. Progress Results/Orders Reviewed/noted all lab results: Yes Results/Orders Orders - CHARLIE LAIRD MD Culture Blood (03/16/25 23:54) Electrocardiogram (03/16/25 23:54) Chest,Single View (03/16/25 00:01) Monitor (03/16/25 23:54) Saline Lock (03/16/25 23:54) Completed Orders - CHARLIE LAIRD MD Cbc/Diff (03/16/25 23:54) Lipase (03/16/25 23:54) Ethanol (03/16/25 23:54) MG (03/16/25 23:54) Electrocardiogram (03/16/25 23:54) Chest,Single View (03/16/25 00:01) Drug Screen, Urine (03/16/25 23:54) Dextrose 5%-Normal Saline (Dextrose 5%-N (03/16/25 23:55) BMP (03/16/25 23:54) Hs Troponin I W Calculations (03/16/25 23:54) Lacticsepsis (03/16/25 23:54) Carvedilol Tablet (Coreg Tablet) (03/17/25 01:50) Losartan Tablet (Cozaar Tablet) (03/17/25 01:50) Hydrochlorothiazide Tablet (Hydrochlorot (03/17/25 01:50) Losartan Tablet (Cozaar Tablet) (03/17/25 08:00) Ua W/Microscopic, Cult If Ind (03/17/25 01:05) Vital Signs 03/16/25 03/16/25 03/17/25 03/17/25 23:50 23:55 00:15 00:58 Temp 98.2 Pulse 98 94 98 Resp 18 18 20 20 B/P (MAP) 203/109 211/106 (141) 203/109 (140) Pulse Ox 99 99 99 O2 Flow Rate 0 0 0 03/17/25 02:04 Temp 98.4 Pulse 90 Resp 18 B/P (MAP) 183/108 Pulse Ox 98 Laboratory Tests Test 03/16/25 23:54 03/17/25 00:28 03/17/25 01:02 03/17/25 01:05 Glucometer 127 H White Blood Count 11.0 Red Blood Count 4.65 L Hemoglobin 14.0 Hematocrit 39.8 L Mean Corpuscular Volume 85.6 Mean Corpuscular Hemoglobin 30.2 Mean Corpuscular Hemoglobin Concent 35.3 Red Cell Distribution Width 12.9 Platelet Count 365 Mean Platelet Volume 7.3 L Neutrophils (%) (Auto) 81.8 H Lymphocytes (%) (Auto) 10.5 L Monocytes (%) (Auto) 5.6 Eosinophils (%) (Auto) 1.4 Basophils (%) (Auto) 0.7 Neutrophils # (Auto) 9.0 H Lymphocytes # (Auto) 1.2 Monocytes # (Auto) 0.6 Eosinophils # (Auto) 0.2 Basophils # (Auto) 0.1 CBC Comment Sodium Level 136 Potassium Level 4.5 Chloride Level 106 Carbon Dioxide Level 21.4 L Anion Gap 9 Blood Urea Nitrogen 47 H Creatinine 2.64 H Estimated GFR/1.73 m2 27 BUN/Creatinine Ratio 17.8 Glucose Level 157 H Calcium Level 8.7 Magnesium Level 1.8 Troponin I High Sensitivity 7 Albumin 3.0 L Lipase 36 Chemistry Comments Ethyl Alcohol Level < 10 Lactic Acid Level 1.2 Urine Specimen Description Cln catch midstream Urine Color Yellow Urine Clarity Clear Urine pH 5.5 Urine Specific [place] 1.025 Urine Protein >=300 H Urine Glucose (UA) 250 H Urine Ketones Negative Urine Occult Blood Small Urine Nitrite Negative Urine Bilirubin Negative Urine Urobilinogen 0.2 Urine Leukocyte Esterase Negative Urine RBC 0-2 Urine WBC 0-4 Urine Squamous Epithelial Cells Few Urine Bacteria 1+ Urine Fine Granular Casts 0-3 Urine Culture Indicated Not ind Volume Urine Centrifuged 10 ml Urine Comment Urine Opiates Screen Negative Urine Methadone Screen Negative Urine Fentanyl Screen Negative Urine Barbiturates Screen Negative Urine Phencyclidine Screen Negative Urine Amphetamines Screen Negative Urine Benzodiazepines Screen Negative Urine Cocaine Screen Negative Urine Cannabinoids Screen Negative Drug Screen Comment Test 03/17/25 01:08 Glucometer 253 H Microbiology Date/Time Source Procedure Growth Status 03/17/25 01:02 Blood Arm Right Blood Culture - Preliminary NEGATIVE (LESS THAN 24 HOURS) Resulted Re-Evaluation Re-Evaluation : Re-Evaluation: Resolved, Improved Progress Patient was seen and examined. Patient is given reassurance. Patient had pretty persistent hypoglycemia. Patient missed his meal. Denies taking any extra medications. Received multiple doses of glucose and still remained on the bit low side. There was no signs of infection. Laboratory work was obtained WBCs 11.0 with normal hemoglobin hematocrit. Platelets within normal limits PMNs slightly elevated at 81%. Otherwise reassuring. Patient's chemistry did show some elevated CO2 with a level of 21.4 consistent with some metabolic acidosis. Patient's creatinine is chronic however it is elevated at 2.64. BUN 47. Patient's glucose improved to 127 157 and 253 at time of discharge. This was while the patient was on a D5 drip. Lactic acid was 1.2 again reassuring that there was no infectious etiology for his hypoglycemia that is seems resistant to glucose. Troponin was negative. Patient's tox screen and alcohol is within normal limits in his specific gravity shows slight dehydration with a specific gravity of 1.025 otherwise no signs of infection. Patient was on a monitor. Patient later received his nighttime medications including Coreg some losartan hydrochlorothiazide. Patient was then discharged home. Continuous property assessment monitor interpretation shows normal sinus rhythm heart rate 90s, no ectopy, normal my interpretation. Pulse oximetry monitor interpretation shows normal oxygenation at 99% room air, normal, my interpretation. EKG/XRAY/CT/US/VASC/MRI EKG : Additional Comment 0003: JOSE CARLOS Laird interpreted EKG to show sinus rhythm at a rate of 92 with Qtc of 463. Good R wave progression. Chest X-Ray : Additional Comments CHEST RADIOGRAPH Indication: aloc hypoglycemia Technique: Single frontal view of the chest was obtained Comparison: DI CHEST,SINGLE VIEW on DOS: 02/03/25 FINDINGS: Lines and Tubes: None Lungs: Mild pulmonary vascular congestion. No focal consolidations. Pleura: No effusion. No pneumothorax. Cardiomediastinal contours: Stable mild cardiomegaly. Bones: Spinal rods are noted. IMPRESSION: 1. Mild pulmonary vascular congestion. No focal consolidations. Electronically Signed by:MADELINE APARICIO MD Date & Time: 03/17/25 0008 Medical Decision Making Additional info obtained from: old records Differential Dx:Considerations: Include: CVA, Encephalopathy, Hepatic disease, Hypoglycemia, Seizure, Sepsis, Alcohol induced, Drug overdose induced, Decr. asher. intake induced, Insulin induced, oral hypoglycemic induced, Other Departure Time of Disposition: 01:33 Disposition: 01 HOME / SELF CARE / HOMELESS Impression: Primary Impression: Hypoglycemia Additional Impression: Chronic renal insufficiency Qualified Codes: N18.4 - Chronic kidney disease, stage 4 (severe) Condition: Stable Discharge Instructions: Hypoglycemia, [id number] Referrals: NO PRIMARY CARE PROVIDER (PCP) Education Educated: Patient Educated regarding: diagnosis, treatment, prognosis, need for follow up Signature Scribe Signature: Scribed for Charlie Laird MD by Wally Ibrahim . 03/17/25 00:05 Attestation: The note accurately reflects work and decisions made by me.Charlie Laird MD 03/16/25 23:56 CHARLIE LAIRD MD Mar 16, 2025 23:56 WALLY KERR Mar 17, 2025 00:05
--- NOTE | 2025-03-17 00:11 | RADIOLOGY REPORT ---
CHEST RADIOGRAPH Indication: aloc hypoglycemia Technique: Single frontal view of the chest was obtained Comparison: DI CHEST,SINGLE VIEW on DOS: 02/03/25 FINDINGS: Lines and Tubes: None Lungs: Mild pulmonary vascular congestion. No focal consolidations. Pleura: No effusion. No pneumothorax. Cardiomediastinal contours: Stable mild cardiomegaly. Bones: Spinal rods are noted. IMPRESSION: 1. Mild pulmonary vascular congestion. No focal consolidations.
[2025-03-17 00:38] LABS: MEAN PLATELET VOLUME 7.3 FL (7.4-10.4); RED CELL DISTRIBUTION WIDTH 12.9 % (11.5-14.5)
[2025-03-17 00:46] LABS: CREATININE 2.64 MG/DL (0.60-1.10); ETHANOL < 10 MG/DL (<10); TOTAL CARBON DIOXIDE 21.4 MMOL/L (24-32); eCRCL 48 ML/MIN; eGFR 27 ML/MIN
[2025-03-17 01:34] LABS: URINE AMPHETAMINE SCREEN NEGATIVE (Neg); URINE BARBITUATE SCREEN NEGATIVE (Neg); URINE BENZODIAZEPINES SCREEN NEGATIVE (Neg); URINE CANNABINOID SCREEN NEGATIVE (Neg); URINE COCAINE SCREEN NEGATIVE (Neg); URINE METHADONE SCREEN NEGATIVE (Neg); URINE OPIATE SCREEN NEGATIVE (Neg); URINE PHENCYCLIDINE SCREEN NEGATIVE (Neg)
[2025-03-17 01:46] LABS: LEUKOCYTE ESTERASE ,URINE NEGATIVE (Neg); NITRITES, URINE NEGATIVE (Neg); OCCULT BLOOD,URINE SMALL (Neg)
[2025-03-17 02:04] VITALS: BP 183/108; PULSE 90; RESP 18; TEMP 98.4; O2SAT 98
[2025-03-17 02:13] LABS: UA COLLECTION TYPE CLN CATCH MIDSTREAM
[2025-03-17 02:30] LABS: FINE GRANULAR CAST 0-3 /LPF (NEGATIVE); SQUAMOUS EPITHELIAL CELL,UR FEW /LPF (FEW)
--- NOTE | 2025-03-17 06:16 | ELECTROCARDIOGRAPH REPORT ---
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 Charlie Caban Measurements Intervals [place] Rate: 92 P: 36 MN: 137 QRS: 24 QRSD: 104 T: -10 QT: 374 QTc: 463 Interpretive Statements Sinus rhythm Abnormal R-wave progression, early transition Left ventricular hypertrophy Nonspecific T abnormalities, inferior leads Baseline wander in lead(s) V3 Electronically Signed On 03-17-2025 22:09:[address] Charlie Caban Please click the below link to view image of tracing.
== END 2025-03-17 02:08 | disposition home or self-care (01) ==
LOC: ER 23:47
DX: E11.22 Type 2 diabetes mellitus with diabetic chronic kidney disease (principal); E11.649 Type 2 diabetes mellitus with hypoglycemia without coma; I12.9 Hypertensive chronic kidney disease with stage 1 through stage 4 chronic kidney disease, or unspecified chronic kidney disease; N18.9 Chronic kidney disease, unspecified; Z88.8 Allergy status to other drugs, medicaments and biological substances; Z79.82 Long term (current) use of aspirin; Z79.899 Other long term (current) drug therapy
CPT/HCPCS: 36415; 71045; 80048; 80305; 80320; 81001; 82948; 83605; 83690; 83735; 84484; 85025; 87040; 93005; 96365; 99285; A6222; J7042; J7070; A6449

== ENCOUNTER 2025-04-02 21:30 | Inpatient (IN) | payer MEDICAID ==
[~2025-04-02] VITALS: Ht 195.6 cm; Wt 120.0 kg
[2025-04-02 22:13] LABS: MEAN PLATELET VOLUME 7.6 FL (7.4-10.4); RED CELL DISTRIBUTION WIDTH 13.9 % (11.5-14.5)
[2025-04-02 22:25] LABS: CREATININE 3.58 MG/DL (0.60-1.10); TOTAL CARBON DIOXIDE 21.1 MMOL/L (24-32); eCRCL 35 ML/MIN; eGFR 19 ML/MIN
[2025-04-02] MEDS: acetaminophen 1,000mg/100ml IV 100 ML IV SCH ×3 (22:42→22:46)
[2025-04-02] MEDS: ondansetron/PF 4mg/2ml inj IV ONE (22:45)
[2025-04-02] MEDS: normal saline 1000ML IV soln IVB ONE (22:45)
[2025-04-03 00:06] LABS: LEUKOCYTE ESTERASE ,URINE NEGATIVE (Neg); NITRITES, URINE NEGATIVE (Neg); OCCULT BLOOD,URINE TRACE-INTACT (Neg); UA COLLECTION TYPE CLN CATCH MIDSTREAM
[2025-04-03 00:12] LABS: SQUAMOUS EPITHELIAL CELL,UR NONE SEEN /LPF (FEW)
--- NOTE | 2025-04-03 00:22 | RADIOLOGY REPORT ---
Exam: CT CT ABDOMEN PELVIS History: Right flank/low back pain Comparison Study: None TECHNIQUE: Multidetector CT of the abdomen and pelvis was performed from lung bases to pubic symphysi s. Imaging was performed without IV contrast. Axial, coronal, and sagittal multiplanar reformats were obtained from the axial data set by the technologist. RADIATION DOSE: CTDI vol 45.48 mGy. DLP 2584.1 mGy.cm Findings: Limited evaluation of the solid organs in the absence of IV contrast. Evaluation is also degraded by streak artifact referable to spinal hardware. Liver: Unremarkable. Spleen: Unremarkable. Pancreas: Unremarkable. Gallbladder: Unremarkable. Adrenals: Unremarkable Kidneys: Nonspecific bilateral perinephric stranding. No hydronephrosis. Pelvic Viscera: Mild wall thickening about the urinary bladder. Vasculature: Unremarkable. Retroperitoneum: Unremarkable. Bowel: No bowel obstruction. The appendix is normal. Musculoskeletal: The thoracolumbar spinal hardware is noted. Soft tissues: Unremarkable Lungs: The lung bases are clear. Impression: 1. Wall thickening about the urinary bladder raising the possibility of cystitis in the appropriate c linical setting. 2. Nonspecific bilateral perinephric stranding, infectious/ inflammatory process cannot be excluded. Further clinical correlation is suggested. 3. Additional findings as detailed.
[2025-04-03] MEDS: morphine 4 MG/ML inj SYRINge IV ONE (00:46)
[2025-04-03] MEDS: normal saline 1000ML IV soln IVB ONE (04:18)
[2025-04-03] MEDS: CefTRIAXone/D5W-Rocephin 1gm 50 ML IV ONE (04:21)
--- NOTE | 2025-04-03 04:25 | Physician Documentation ---
History of Present Illness Chief Complaint: Flank Pain Stated Complaint: KIDNEY PAIN Time Seen by MD: 22:16 Primary Medical Doctor: Dr Newberry Mode of Arrival: POV HPI 39-year-old male, history of diabetes and and chronic kidney disease, who presents with severe right flank pain He tells me that over the past week, he has been having pain in his right flank. He states that it is severe, and so bad that he has not been able to eat, drink or sleep. He reports associated nausea and has had several episodes of vomiting. Possible fevers. He denies any diarrhea or hematuria. No congestion cough or shortness of breath. He tells me that he was seen at an outside hospital recently, and had a workup performed, was told he had an infection was treated with Bactrim. He has taken a couple of doses of this antibiotic, but his symptoms have worsened. He has been taking pain medication including opiates without relief. Medication Reconciliation Allergies: Coded Allergies: gabapentin (Unverified Adverse Reaction, Intermediate, SEIZURES/WT GAIN, 04/02/25) ADV REACTION ONLY EXPERIENCED ONLY AFTER SHELTER TREATENT PER PT Scheduled Aspirin (Ecotrin*), 1 TAB PO DAILY Atorvastatin Calcium (Atorvastatin Calcium), 80 MG PO HS Carvedilol (Carvedilol), 12.5 MG PO BID Hydralazine HCl (Hydralazine HCl), 0.5 TAB PO Q12H Insulin Glargine,Hum.rec.anlog* (Lantus*), 41 UNIT SQ HS, (Reported) Isosorbide Mononitrate (Isosorbide Mononitrate Er), 30 MG PO DAILY Losartan Potassium (Losartan Potassium), 100 MG PO HS Omeprazole (Omeprazole), 40 MG PO ONCE, (Reported) Tamsulosin Hcl* (Flomax*), 1 TAB PO BKF, (Reported) Scheduled PRN Acetaminophen (Acetaminophen), 2 TAB PO Q6H PRN for pain, (Reported) Benzonatate (Benzonatate), 1 TAB PO TID PRN for cough, (Reported) Miscellaneous Medications Insulin Lispro (Insulin Lispro Kwikpen U-100), SQ, (Reported) Past Medical History Past Medical History: Hypertension, Diabetes, Chronic Back Pain Past Surgical History: orthopedic surgeries, other Patient History: FH: CVA (cerebrovascular accident) MOTHER FH: hypothyroidism maternal grandmother Alcohol Use: Occasionally Drug Use: none Lives with: S/O Lives In: Home Occupation: disabled Review of Systems Cardiovascular: Denies: chest pain Gastrointestinal: Reports: abdominal pain, nausea, vomiting Physical Exam Vital Signs: Temperature: 98.2, Source: Oral, Heart Rate: 106, Respiratory Rate: 18, BP: 160/98, Pulse Oximetry: 96, Weight: 120.000 Oxygen Flow Rate: 0 Physical Exam General: This is an uncomfortable appearing young male, appears in mild distress, appears unable to sit still HEENT: Atraumatic, oropharynx is dry Heart: Tachycardia, appears regular Lungs: normal work of breathing, normal oxygen saturation on room air Abdomen: Soft, nondistended, tender to palpation in the right lateral abdomen, no left-sided tenderness Back: Tender to palpation over the muscles of the right flank, also has positive right CVA tenderness to percussion Extremities: Warm and well-perfused Neuro: Alert and oriented, no focal deficits Psychiatric: Anxious and in mild distress Progress Results/Orders Results/Orders Orders - CINDI SCHROEDER MD Acetaminophen 1,000mg/100ml Iv (Ofirmev (04/03/25 02:00) Acetaminophen 1,000mg/100ml Iv (Ofirmev (04/03/25 02:00) Acetaminophen 1,000mg/100ml Iv (Ofirmev (04/02/25 22:45) Ct Abdomen Pelvis (04/02/25 22:52) Ceftriaxone/X4y-Ohsyhfpc 1gm (Rocephin 1 (04/03/25 04:10) Cult Urine + [address] Ct (04/03/25 04:08) Page Hospitalist (04/03/25 04:09) Completed Orders - CINDI SCHROEDER MD Cbc/Diff (04/02/25 21:47) BMP (04/02/25 21:47) Lipase (04/02/25 21:47) CMP (04/02/25 21:47) Normal Saline 1000ml (0.9% Sodium Chlori (04/02/25 22:30) Lidocaine 5% Patch (Lidoderm 5% Patch) (04/02/25 22:30) Ondansetron Inj. (Zofran 4mg/2ml Vial) (04/02/25 22:30) Ct Abdomen Pelvis (04/02/25 22:52) Ua W/Microscopic, Cult If Ind (04/02/25 23:58) Morphine 4mg/Ml Inj. (Morphine Inj.) (04/03/25 00:35) Hydromorphone 1 Mg/Ml/Pf (Dilaudid Inj.) (04/03/25 01:25) Normal Saline 1000ml (0.9% Sodium Chlori (04/03/25 04:10) Medications Received in ER Medications (Trade) Dose Ordered Sig/Gabi Route PRN Reason Start Time Stop Time Status Last Admin Dose Admin (0.9% sodium chloride (NS) 1000ml IV soln) 1,000 ml ONCE ONCE IVB 04/02/25 22:30 04/02/25 22:31 DC 04/02/25 22:45 1,000 ML (Lidoderm 5% Patch) 1 patch ONCE ONCE TP 04/02/25 22:30 04/02/25 22:31 DC 04/02/25 22:46 1 PATCH (Zofran 4mg/2ml vial) 4 mg ONCE ONCE IV 04/02/25 22:30 04/02/25 22:31 DC 04/02/25 22:45 4 MG Acetaminophen 100 ml @ 400 mls/hr Q6H IV 04/02/25 22:45 04/03/25 22:42 04/02/25 22:46 400 MLS/HR (morphine inj.) 8 mg ONCE ONCE IV 04/03/25 00:35 04/03/25 00:36 DC 04/03/25 00:46 8 MG (Dilaudid inj.) 1 mg ONCE ONCE IV 04/03/25 01:25 04/03/25 01:26 DC 04/03/25 01:31 1 MG Vital Signs 04/02/25 04/02/25 04/02/25 04/03/25 21:39 22:06 22:10 00:09 Temp 98.2 Pulse 116 104 99 Resp 18 16 16 18 B/P (MAP) 144/90 156/87 (110) 154/82 (106) Pulse Ox 98 97 99 O2 Flow Rate 0 0 04/03/25 04/03/25 04/03/25 04/03/25 00:46 01:31 01:34 03:01 Pulse 110 106 Resp 20 16 16 18 B/P (MAP) 159/86 (110) 160/98 (118) Pulse Ox 99 96 O2 Flow Rate 0 0 Laboratory Tests Test 04/02/25 21:46 04/02/25 22:03 04/02/25 23:58 Glucometer 345 H White Blood Count 6.4 Red Blood Count 4.57 L Hemoglobin 13.4 L Hematocrit 40.1 L Mean Corpuscular Volume 87.8 Mean Corpuscular Hemoglobin 29.2 Mean Corpuscular Hemoglobin Concent 33.3 Red Cell Distribution Width 13.9 Platelet Count 404 Mean Platelet Volume 7.6 Neutrophils (%) (Auto) 64.2 Lymphocytes (%) (Auto) 25.5 Monocytes (%) (Auto) 7.5 Eosinophils (%) (Auto) 2.3 Basophils (%) (Auto) 0.5 Neutrophils # (Auto) 4.1 Lymphocytes # (Auto) 1.6 Monocytes # (Auto) 0.5 Eosinophils # (Auto) 0.1 Basophils # (Auto) 0.0 CBC Comment Sodium Level 133 L Potassium Level 4.9 Chloride Level 101 Carbon Dioxide Level 21.1 L Anion Gap 11 Blood Urea Nitrogen 29 H Creatinine 3.58 H Estimated GFR/1.73 m2 19 BUN/Creatinine Ratio 8.1 L Glucose Level 372 H Calcium Level 8.8 Total Bilirubin 0.5 Aspartate Amino Transf (AST/SGOT) 14 Alanine Aminotransferase (ALT/SGPT) 19 Alkaline Phosphatase 98 Total Protein 6.9 Albumin 3.1 L Globulin 3.8 Albumin/Globulin Ratio 0.8 L Lipase 19 Chemistry Comments Urine Specimen Description Cln catch midstream Urine Color Yellow Urine Clarity Clear Urine pH 6.0 Urine Specific [place] 1.020 Urine Protein >=300 H Urine Glucose (UA) >=1000 H Urine Ketones Trace H Urine Occult Blood Trace-intact Urine Nitrite Negative Urine Bilirubin Negative Urine Urobilinogen 0.2 Urine Leukocyte Esterase Negative Urine RBC 3-10 Urine WBC 0-4 Urine Squamous Epithelial Cells None seen Urine Bacteria Few Urine Culture Indicated Not ind Volume Urine Centrifuged 10 ml Urine Comment EKG/XRAY/CT/US/VASC/MRI CT : Impression I personally reviewed the CT scan, and this shows no obvious obstructing ureteral stone. There is mild inflammatory changes to the kidneys Consults/PCP Consults/PCP : Additional Comment Consult: I spoke to the internal medicine service, for admission in the hospital Medical Decision Making Differential Dx:Considerations: Include: Bowel obstruction, Cholelithasis, Constipation, Diverticular disease, Inflammatory BD, Urinary obstruction, Urinary tract infection, Urolithiasis Additional Comments The patient presents with severe right flank pain with nausea and vomiting. His workup today shows an acute kidney injury. Urinalysis with bacteria, no definite infection, but possibly masked by antibiotic use. CT scan shows inflammatory changes to the kidneys and thickening of the bladder. Overall, this is concerning for possible kidney infection given his combination of symptoms. No other dangerous cause identified for his symptoms. Given his acute kidney injury and diabetes, he will be treated with further IV fluids. He was given IV antibiotics. He will be admitted to the medicine service for intractable pain and acute kidney injury. Departure Impression: Primary Impression: Acute pyelonephritis Additional Impressions: DUSTIN (acute kidney injury) Nausea and vomiting Referrals: NO PRIMARY CARE PROVIDER (PCP) Education Educated: Patient Signature Scribe Signature: alice Attestation: CINDI Em MD Apr 03, 2025 04:25
[2025-04-03] MEDS ORDERED: magnesium hydroxide 30ml (MOM) UD suspension PO PRN (04:40)
[2025-04-03] MEDS ORDERED: potassium Cl 20 mEq SR tablet PO PRN ×2 (04:40)
[2025-04-03] MEDS ORDERED: potassium Cl 40MEQ/1/2NS 520ml 520 ML IV PRN (04:40)
[2025-04-03] MEDS ORDERED: magnesium sulf-water 4G/100mL 100 ML IV PRN (04:40)
[2025-04-03] MEDS ORDERED: magnesium Cl slow-release 64mg tablet PO PRN (04:40)
[2025-04-03] MEDS ORDERED: mag hydrox/Alum hydrox/simeth 30ml oral suspension PO PRN (04:40)
[2025-04-03] MEDS ORDERED: magnesium sulf-water 2g/50mL 50 ML IV PRN (04:40)
[2025-04-03] MEDS: normal saline 1000ml 1,000 ML IV SCH (04:40)
[2025-04-03] MEDS ORDERED: dextrose 50%-water 50ml dispensing syringe IV PRN ×2 (05:15)
[2025-04-03] MEDS ORDERED: glucagon, human recombinant 1mg kit SUBCUT PRN (05:15)
--- NOTE | 2025-04-03 05:15 | HISTORY AND PHYSICAL-Residence ---
History & Physical Providers to CC Resident Creating Document: YVES HARDING CC: DANIELLA SMITH MD ~ History of Present Illness Primary Medical Doctor: Dr Newberry Reason for Admit\Complaint: Abdominal pain History of Present Illness Patient is a 39-year-old male with history of type 1 diabetes, hypertension and CKD who came to the ED due to right flank pain. Patient reports that he has been experiencing right flank pain for 2-1/2 weeks, 8/10 in intensity, radiated to anterior abdomen, worsened by movement, accompanied with nausea and vomiting, subjective fevers and chills. Patient reports that due to the discomfort he has had a poor appetite and has not been drinking much fluids. Overall symptoms of worsened for the past 3 days or so. Patient did go to [facility] one-week ago and completed a trial of antibiotics, however, symptoms did not improve. He he did take some hydrocodone yesterday which he states improved the pain for about 45 minutes. Currently pain is 6/10 after Dilaudid which was given in the ER. Allergies: Coded Allergies: gabapentin (Unverified Adverse Reaction, Intermediate, SEIZURES/WT GAIN, 04/02/25) ADV REACTION ONLY EXPERIENCED ONLY AFTER INDUSTRIAL ECONOMICS PROFESSOR TREATENT PER PT Home Medications Home Medications Active Hydralazine HCl 50 Mg Tablet 0.5 Tab PO Q12H 30 Days Ecotrin* (Aspirin) 81 Mg Tablet.dr 1 Tab PO DAILY 30 Days Atorvastatin Calcium 20 Mg Tablet 80 Mg PO HS 30 Days Isosorbide Mononitrate Er (Isosorbide Mononitrate) 30 Mg Tab.er.24h 30 Mg PO DAILY 60 Days Carvedilol 12.5 Mg Tablet 12.5 Mg PO BID 30 Days Losartan Potassium 50 Mg Tablet 100 Mg PO HS 30 Days Reported Lantus* (Insulin Glargine) 100 Unit/1 Ml Vial 41 Unit SQ HS Insulin Lispro Kwikpen U-100 (Insulin Lispro) 100 Unit/Ml Insuln.pen SQ Benzonatate 100 Mg Capsule 1 Tab PO TID PRN Acetaminophen 500 Mg Tablet 2 Tab PO Q6H PRN Omeprazole 20 Mg Capsule.dr 40 Mg PO ONCE Flomax* (Tamsulosin HCl) 0.4 Mg Cap.sr.24h 1 Tab PO BKF Past Medical History Past Medical History Type 1 diabetes Hypertension CKD Family History Family History: FH: CVA (cerebrovascular accident) MOTHER FH: hypothyroidism maternal grandmother Past Social History Social History Comment Back surgery for scoliosis at age 19 Right toe amputation, August of 2024 Unspecified nose surgery, 2014 Smoking: Quit less than 1 year (Quit in June of last year) Alcohol Use: Occasionally Drug Use: None Lives with: Family Lives In: Home Occupation: disabled ROS ROS All systems were reviewed except for pertinent positives mentioned in HPI Cardiovascular: Denies: chest pain Gastrointestinal: Reports: abdominal pain, nausea, vomiting Exam Vitals: Vital Signs Date Time Temp Pulse Resp B/P (MAP) Pulse Ox O2 Delivery O2 Flow Rate FiO2 04/03/25 03:01 106 18 160/98 (118) 96 0 04/02/25 21:39 98.2 General: General: awake, alert oriented to place, time, and person HEENT: Mild pallor present, no icterus, moist mucous membranes Neck: No masses and tenderness Resp: Unlabored. Lungs clear to auscultation bilaterally. Chest: Normal expansion Cardiovascular: Regular Rate and rhythm, normal S1 and S2 without murmur, rub or gallop Abdomen: Soft and significantly tender to palpation in right flank and right costovertebral fossa, no organomegaly, no guarding and rigidity, bowel sounds present Neuro: No focal weakness in the upper and lower limb muscles, power of the muscles 5/5 bilateral upper and lower extremities, normal reflexes bilaterally. Cranial nerves intact Extremities: No cyanosis,clubbing or edema Skin: Warm and Dry. No lesions Psych: Normal affect Diagnostic Data Last Recorded Lab Results: 04/02/25220204/02/252202 Advance Care Planning Advanced Care plannin - 30 Minutes Additional Plan Patient is a 39-year-old male with history of type 1 diabetes, hypertension and CKD who came to the ED due to right flank pain. Admitted for evaluation and management of possible pyelonephritis. Right flank pain Possible pyelonephritis per imaging Patient with 2 and half weeks of increasing right flank pain in recent p.o. treatment for UTI CBC is unremarkable Urinalysis is negative for infection CT scan of abdomen and pelvis shows signs of possible cystitis and bilateral perinephric stranding In view of significant flank pain and imaging findings we will start empiric ceftriaxone Received 2 L of IV NS in ED. continue maintenance at 150 cc/hour Continue pain management DUSTIN on CKD III, possibly prerenal due to tubular stasis Metabolic acidosis in the setting of hyperglycemia/DUSTIN Mild hyponatremia Type 1 diabetes Possible diabetic nephropathy Creatinine: 3.58, BUN: 29, GFR: 19 Carbon dioxide: 21.1, anion gap: 11 Blood glucose: 345 Urinalysis with significant glucosuria and proteinuria. Urine ketones and lytes ordered IV fluids as above Started on hyper/hypoglycemia protocol based on his home dose. Lantus 51 units, lispro 10 units, medium dose supplemental Patient likely heading towards DKA. Will repeat CMP and consider insulin drip if necessary Pending A1c Will consult Nephrology in a.m. Hypertension Hypertensive urgency Possibly worsened by pain Single dose of IV hydralazine 10 mg given Continue monitor BP Continue home hydralazine 50 mg b.i.d., Coreg 12.5 mg daily, will hold losartan in view of DUSTIN Code Status: Full code DVT prophylaxis: Heparin Analgesia/sedation: Morphine/[place] Nutrition: Carb controlled Prognosis: Guarded Disposition: Admit to surgical unit. Continue medical management Yves Weiner MD Internal Medicine Resident PGY-2 [facility] [place] Addendum #1 Neuro: Pt with back pain of unclear etiology. Pt has hx of scoliosisi with surgical repair. Pt describes pain on palpation which radiates around the rib to the fornt. Question if this is nerve pain possibly from impigement. Pt does not have bladder or bowel incontinence. Would ask radiology if spine adequately imaged to check for nerve impingment. - Monitor for delirium #2 CV: The patient has a history of essential hypertension - Coreg and Hydralazine - Monitor blood pressure and heart rate frequently #3 Pulm: - Promote incentive spirometry use - Keep oxygen saturation >92% #4 GI: - Advance diet as tolerated when cleared by primary care #5 Renal: The patient has chronic kidney disease (Creatinine 3.5 mg/dL) up from 2.5. - Monitor for fluid overload, adjust fluid status accordingly - Avoid nephrotoxic agents and adjust medications for renal function #6 ID: The patient has a possible urinary tract infection ? pyelo - Continue ceftriaxone to cover for potential UTI #7 Endo: The patient has type 2 diabetes mellitus - Initiate insulin sliding scale with Lantus to maintain serum glucose between 150-180 mg/dL - Monitor glucose levels closely and adjust insulin lispro as needed #8 MSK Heme/Onc: - Monitor for signs of bleeding due to heparin therapy - Ensure hemoglobin >7 g/dL and platelets >100 x 10^3/L #9 PPx: - Continue chemical DVT prophylaxis with heparin I saw this patient and completed a full visual exam via audio-visual HIPAA compliant technology. Date of Service: Apr 03, 2025 Billing Provider: DANIELLA SMITH MDYVESWALTER HOFF Apr 03, 2025 05:15 DANIELLA SMITH MD Apr 03, 2025 07:41
[2025-04-03] MEDS: hydrALAZINE 20mg/ml inj. IV ONE ×2 (05:44→22:44)
[2025-04-03] MEDS ORDERED: ATOR40TA PO (05:52)
[2025-04-03] MEDS ORDERED: ASPI81CA (05:53)
[2025-04-03] MEDS ORDERED: SULF-14 PO (05:55)
[2025-04-03] MEDS: insulin glargine (Lantus) pen - multi-dose SQ SCH (06:13)
[2025-04-03] MEDS: insulin glargine (Lantus) pen - multi-dose SQ ONE (06:13)
[2025-04-03 08:00] VITALS: BP 204/108; PULSE 115; RESP 16; TEMP 98.3; O2SAT 98
[2025-04-03] MEDS: K and/or MAG REPLACEMENT MC SCH (08:00)
[2025-04-03 08:15] VITALS: BP 187/108; PULSE 115
[2025-04-03] MEDS ORDERED: HYDROmorphone/PF 0.2 MG/ML SYRINGE IV PRN (08:25)
[2025-04-03] MEDS: pantoprazole 40mg Tablet.DR PO SCH (08:25)
[2025-04-03] MEDS: isosorbide mononitrate 30mg tab.SR.24H PO SCH (08:27)
[2025-04-03] MEDS: ondansetron/PF 4mg/2ml inj IV PRN (08:28)
[2025-04-03] MEDS: docusate sod 100mg capsule PO SCH (08:28)
[2025-04-03] MEDS: heparin, porcine 5000 units/ml vial SQ SCH (08:29)
[2025-04-03] MEDS: INSULIN LISPRO 100 UNIT/ML INSULN.PEN MULTI-DOSE SQ SCH ×2 (09:00→10:16)
[2025-04-03] MEDS: HYDROmorphone inj. 0.5 MG/0.5 ML DISP.SYRIN IV PRN (09:29)
[2025-04-03 10:01] LABS: CREATININE 3.66 MG/DL (0.60-1.10); TOTAL CARBON DIOXIDE 21.8 MMOL/L (24-32); eCRCL 34 ML/MIN; eGFR 19 ML/MIN
[2025-04-03] MEDS ORDERED: metoclopramide 5 mg/ml inj IV PRN (10:20)
[2025-04-03 10:30] VITALS: BP 167/98; PULSE 102; RESP 12; TEMP 99.1; O2SAT 98
[2025-04-03 11:43] LABS: APTT 28 SECONDS (22-32); INR 1.0 INR
[2025-04-03] MEDS: HYDROcodone/acetaminophen 5mg/325mg tablet PO PRN (11:55)
[2025-04-03] MEDS: HYDROcodone/acetaminophen 10/325mg tab PO PRN (17:02)
[2025-04-03 18:00] VITALS: BP 164/97; PULSE 96; RESP 12; TEMP 98.3; O2SAT 97
[2025-04-03 20:00] VITALS: RESP 12; O2SAT 97
[2025-04-03 21:21] LABS: CREATININE,URINE RANDOM 81.0 MG/DL; TOTAL PROTEIN,URINE RANDOM 405.3 MG/DL; UA UREA RANDOM 382.0 MG/DL
[2025-04-03 22:00] VITALS: BP 188/107; PULSE 93; RESP 18; TEMP 98.1; O2SAT 99
[2025-04-04] VITALS (7 sets, daily range): BP systolic 145–175; BP diastolic 93–106; PULSE 83–100; RESP 16–17; TEMP 97.5–98.3; O2SAT 94–98
[2025-04-04] MEDS: DEXTROSE 15 GM of carb/4 tabs (each vial/BOTTLE has 4 tablets) PO PRN ×2 (00:21→10:43)
[2025-04-04 05:49] LABS: MEAN PLATELET VOLUME 7.4 FL (7.4-10.4); RED CELL DISTRIBUTION WIDTH 13.6 % (11.5-14.5)
[2025-04-04 06:21] LABS: CREATININE 3.28 MG/DL (0.60-1.10); TOTAL CARBON DIOXIDE 24.9 MMOL/L (24-32); eCRCL 38 ML/MIN; eGFR 21 ML/MIN
--- NOTE | 2025-04-04 08:37 | CONSULTATION REPORT ---
Consult Providers to CC ~ History of Present Illness Primary Medical Doctor: residents team Reason for Admit\Complaint: dustin + CKD 4 History of Present Illness I have been requested to do renal consult for this 39-year-old male with history of type 1 diabetes, hypertension and CKD who came to the ED due to right flank pain. Patient reports that he has been experiencing right flank pain for 2-1/2 weeks, 8/10 in intensity, radiated to anterior abdomen, worsened by movement, accompanied with nausea and vomiting, subjective fevers and chills. Patient reports that due to the discomfort he has had a poor appetite and has not been drinking much fluids. Overall symptoms of worsened for the past 3 days or so. Patient did go to [facility] one-week ago and completed a trial of antibiotics, however, symptoms did not improve. He he did take some hydrocodone yesterday which he states improved the pain for about 45 minutes. Currently pain is 6/10 after Dilaudid which was given in the ER. I saw him in surgical floor today. He says he is scheduled to see me in may in my office for initial nephrology consult. He has been told about CKD 3 by previous encounter somewhere. But he was never aware of his previous stages in the past ever. He has not seen network associate in a long while and says he has had retinal bleeds in the left eye in the past. He does not see any fabric inspector and has history of neuropathy. His urinalysis is NEGATIVE for infection at this time, but has massive proteinuria, consistent with his T1DM and nephropathy preexisting. He denies any NSAID frequent intake. No history of recurrent kidney stones. No history of zoster lesions. Allergies: Coded Allergies: gabapentin (Unverified Adverse Reaction, Intermediate, SEIZURES/WT GAIN, 04/02/25) ADV REACTION ONLY EXPERIENCED ONLY AFTER BIOLOGICAL LAB TECHNICIAN TREATENT PER PT Home Medications Home Medications Active Hydralazine HCl 50 Mg Tablet 0.5 Tab PO Q12H 30 Days Isosorbide Mononitrate Er (Isosorbide Mononitrate) 30 Mg Tab.er.24h 30 Mg PO DAILY 60 Days Carvedilol 12.5 Mg Tablet 12.5 Mg PO BID 30 Days Losartan Potassium 50 Mg Tablet 100 Mg PO HS 30 Days Reported Bactrim SS Tablet* (Trimethoprim/Sulfamethoxazole) 400 Mg-80 Mg Tablet 1 Tab PO BID [place] (Aspirin) 81 Mg Capsule Lipitor* (Atorvastatin Calcium) 40 Mg Tablet 1 Tab PO HS 30 Days Lantus* (Insulin Glargine) 100 Unit/1 Ml Vial 41 Unit SQ HS Insulin Lispro Kwikpen U-100 (Insulin Lispro) 100 Unit/Ml Insuln.pen SQ Benzonatate 100 Mg Capsule 1 Tab PO TID PRN Acetaminophen 500 Mg Tablet 2 Tab PO BID PRN Omeprazole 20 Mg Capsule.dr 40 Mg PO ONCE Flomax* (Tamsulosin HCl) 0.4 Mg Cap.sr.24h 1 Tab PO BKF Past Medical History Past Medical History Type 1 diabetes Hypertension CKD Past Surgical History Surgical History Comment Back surgery for scoliosis at age 19 Right toe amputation, August of 2024 Unspecified nose surgery, 2014 Family History Family History: FH: CVA (cerebrovascular accident) MOTHER FH: cholecystectomy FATHER FH: hypothyroidism MOTHER maternal grandmother Kyphosis MOTHER Past Social History Social History Comment Smoking: Quit less than 1 year (Quit in June of last year) Alcohol Use: Occasionally Drug Use: None Lives with: Family Lives In: Home Occupation: disabled DAMARIS OCAMPO says he has pain in the right lower ribs from back to front wtihout any lesions suggestive of zoster. worried if that is musculoskeletal vs pyelonephritis. deneis any shortness of breath dropped his sugars early and is taking his sugar tablets currently. Exam Vitals: Vital Signs Date Time Temp Pulse Resp B/P (MAP) Pulse Ox O2 Delivery O2 Flow Rate FiO2 04/04/25 07:29 16 04/04/25 07:20 98 Room Air 04/04/25 06:29 97.5 91 175/106 (129) 04/03/25 20:00 0.0 General: Vital Signs: As above General: Normal body habitus, no acute distress. Skin: No rashes, lumps, ulcers, blisters, purpura or petechiae HEENT: Anicteric sclera, KISHOR Neck: Supple and nontender without enlargement of the thyroid, or lymphadenopathy. Chest: Normal size and shape, no tenderness, CTA bilaterally Heart: Regular. No jugular venous distention, S1 and S2 heard , no gallop Abdomen: Soft and non tender no organomegaly,BS+ Extremities: No pedal edema right lower ribs from sides to front is sensistive to touch. Neuro: Nonfocal. Diagnostic Data Last Recorded Lab Results: 04/04/25 0529 04/04/25 0529 Diagnostic Data: Laboratory Tests Test 04/03/25 11:15 Prothrombin Time 10.3 SECONDS (9.0-12.0) INR International Normalized Ratio 1.0 INR Activated Partial Thromboplast Time 28 SECONDS (22-32) Coagulation Comments Problems: (1) Lumbar paraspinal muscle spasm Status: Acute Assessment & Plan: avoid NSAIDs please. needs thorough work up such as MRI of the Thoracic and Lumbosacral spine to rule out any nerve entrapment. (2) Type 1 diabetes Status: Acute Assessment & Plan: sugars were running low when I saw him and he is coming out of it with tablets currently. we are switching his fluids to D5 with LR at 125 cc per hour. Advised him strongly to get an appointment JOLIE with network associate and fabric inspector - both are MUST for him. - He needs to be hooked up with or locally for endocrinology consultation. his HbA1C is high at 8.4. He would benefit with Dexcom along with insulin pump. He is not being properly managed mostly because of his non compliance, and moving [place], losing his doctors. (3) DUSTIN (acute kidney injury) Assessment & Plan: hydration in progress. the patient has nephrotic range proteinuria. Though I would hold the CHARLOTTE inhibitors for now, he will eventually need them optimized when he gets out of this acute phase of his Dustin on top of his CKD 3B. - work up for proteinuria is initiated. - strongly suspect this to be Diabetic nephropathy and I made it clear to him that he needs to keep away (continue to) from smoking, drinking and marijuana abuse to be eligible for his future kidney vs combined kidney pancreas transplant. He understands. He has already quit them some time ago and will continue to stay disciplined. - needs to be on Renal ADA diet. (4) CKD (chronic kidney disease) stage 3, GFR 30-59 ml/min Assessment & Plan: as discussed above. needs nephrology follow upw ith me in the office, when he is discharged from here. PARTH ZARTAE MD Apr 04, 2025 08:37
[2025-04-04] MEDS: CefTRIAXone 2gm/D5W 50ml BAG 50 ML IV SCH (09:11)
--- NOTE | 2025-04-04 16:11 | PROGRESS NOTE- Residence ---
Progress Note - Resident Providers to CC Resident Creating Document: ANNIA ROBLERO RES ~ Antibiotic Timeout Antibiotic Ordered?: Yes Subjective Patient seen and examined at the bedside, as his report a pain still is around 7-8/10 Denied chest pain shortness of breaths or any other new symptoms Objective Vital Signs Date Time Temp Pulse Resp B/P (MAP) Pulse Ox O2 Delivery O2 Flow Rate FiO2 04/04/25 14:28 16 04/04/25 10:11 97.7 83 147/93 (111) 98 Room Air 04/04/25 08:00 0.0 Result Diagram: 04/04/2552804/04/25528 General: awake, alert oriented to place, time, and person HEENT: Mild pallor present, no icterus, moist mucous membranes Neck: No masses and tenderness Resp: Unlabored. Lungs clear to auscultation bilaterally. Chest: Normal expansion Cardiovascular: Regular Rate and rhythm, normal S1 and S2 Abdomen: Soft and significantly tender to touch in right flank and right costovertebral area Neuro: No focal weakness in the upper and lower limb muscles, power of the muscles 5/5 bilateral upper and lower extremities, normal reflexes bilaterally. Cranial nerves intact Extremities: No cyanosis,clubbing or edema Skin: Warm and Dry. No lesions Psych: Normal affect Coagulation Studies Laboratory Tests Test 04/03/25 11:15 Prothrombin Time 10.3 SECONDS (9.0-12.0) INR International Normalized Ratio 1.0 INR Activated Partial Thromboplast Time 28 SECONDS (22-32) Coagulation Comments Plan Plan Patient is a 39-year-old male with history of type 1 diabetes, hypertension and CKD who came to the ED due to right flank pain. Admitted for evaluation and management of possible pyelonephritis. Right flank pain Possibly secondary to lumbar paraspinal spasm Shingles was differential diagnosis but patient does not have any skin rash UA is neg for infection, pyelonephritis ruled out Patient with 2 and half weeks of increasing right flank pain in recent p.o. treatment for UTI CBC is unremarkable CT scan of abdomen and pelvis shows signs of possible cystitis and bilateral perinephric stranding In view of significant flank pain and imaging findings she received empiric ceftriaxone for 3 days, we will dc it today. 04/04/2025: Pain medication changed today to Percocet and Dilaudid. Pregabalin and prednisolone added today. Can follow-up with MRI of the spine as an outpatient DUSTIN on CKD III ATN, Possible Diabetic nephropathy Metabolic acidosis in the setting of hyperglycemia/DUSTIN: Improved Pseudo hyponatremia, corrected with glucose Type 1 diabetes diabetic nephropathy Initial Creatinine: 3.58, BUN: 29, GFR: 19 Carbon dioxide: 21.1, anion gap: 11 Blood glucose: 345, A1c 8.4 Urinalysis with significant glucosuria and proteinuria. IV fluids as above Started on hyper/hypoglycemia protocol based on his home dose. Lantus 51 units, lispro 10 units, medium dose supplemental. 04/04/2025: Due to low appetite patient did not eat anything and had episode of hypoglycemia today in the morning, we decreased the dose of Lantus 51 to 40. Patient was very non compliant with medication and follow-up, needs to follow-up with nephrology in ophthalmology and surgical supplies sterilizer in the endocrinology as an outpatient for managing complication of diabetes mellitus Hypertension Hypertensive urgency Elevated blood pressure and worsened by pain On admission Single dose of IV hydralazine 10 mg given Continue home hydralazine 50 mg b.i.d., Coreg 12.5 mg daily, will hold losartan in view of DUSTIN Patient had echocardiography in 02/03: Overall LVEF is 65-70%. Normal LV size and function. Mild concentric hypertrophy. RV is normal size and function. Trileaflet AV appears sclerotic without stenosis. No insufficiency. Trace mitral regurgitation.Trace tricuspid regurgitation.Trace pulmonic regurgitation.There is no pericardial effusion. 02/03 Lexiscan: Small size, moderate intensity perfusion defect in the basal to mid inferior wall which is partially reversible favored to reflect ischemia. 04/04/2025: We will increase the dose of Coreg 25 b.i.d. continue hydralazine 50 mg b.i.d. losartan on hold We will continue aspirin and Imdur Code Status: Full code DVT prophylaxis: Heparin Analgesia/sedation: Morphine/[place] Nutrition: Carb controlled, renal diet Prognosis: Guarded Disposition: Continue monitoring Annia Roblero MD Internal Medicine Resident Date of Service: Apr 04, 2025 Billing Provider: LILO CARVALHO MD Common Visit Codes: [id number] INP/OBS CARE(HIGH) ANNIA ROBLERO, ZEHRA Apr 04, 2025 16:11 LILO CARVALHO MD Apr 05, 2025 07:58
[2025-04-04] MEDS: normal saline 1000ml 1,000 ML IV SCH (17:57)
[2025-04-04] MEDS: insulin glargine (Lantus) pen - multi-dose SQ SCH (21:19)
[2025-04-05 06:11] LABS: MEAN PLATELET VOLUME 7.9 FL (7.4-10.4); RED CELL DISTRIBUTION WIDTH 12.9 % (11.5-14.5)
[2025-04-05 06:31] LABS: CREATININE 2.89 MG/DL (0.60-1.10); LACTATE DEHYDROGENASE 172 U/L (85-227); TOTAL CARBON DIOXIDE 21.2 MMOL/L (24-32); eCRCL 44 ML/MIN; eGFR 25 ML/MIN
[2025-04-05 06:37] VITALS: BP 185/110; PULSE 82; RESP 19; TEMP 97.7; O2SAT 96
[2025-04-05 07:06] LABS: HIV ANTIBODY 1&2 RAPID NON-REACTIVE (Neg)
[2025-04-05 08:00] VITALS: RESP 16
[2025-04-05 10:08] VITALS: BP 159/100; PULSE 76; RESP 18; TEMP 97.8; O2SAT 98
[2025-04-05] MEDS ORDERED: OXYC-150 PO (11:22)
[2025-04-05] MEDS ORDERED: LANTUS SQ (12:04)
[2025-04-05] MEDS ORDERED: CLON0.1T2 PO (12:04)
[2025-04-05] MEDS ORDERED: LYR75C PO (12:04)
[2025-04-05] MEDS ORDERED: CARV12.545 PO (12:04)
[2025-04-05] MEDS ORDERED: PRED20TA PO (12:04)
--- NOTE | 2025-04-05 12:30 | DISCHARGE SUMMARY-Residence ---
Discharge Summary Providers to CC Resident Creating Document: JOSE SCHWARTZ, RES ~ Discharge Summary Admission Diagnosis: UTI, PYELONEPHRITIS Hospital Course DATE OF ADMISSION: 04/03/2025 DATE OF DISCHARGE: 04/05/25 Discharge Diagnosis\Comment: Right flank pain Possibly secondary to lumbar paraspinal spasm Acute on Chronic kidney disease stage - III ATN, Metabolic acidosis in the setting of hyperglycemia/DUSTIN: Improved Type 1 Diabetes Mellitus, possible diabetic nephropathy Hypertensive Urgency - Improving Operations\Procedures: none Consultants: Pantry Goods Maker Complications: none Condition on DC: Stable New Medications: Oxycodone HCl/Acetaminophen (Percocet 10-325 mg Tablet) 10 Mg-325 Mg Tablet 1 TAB PO QID PRN PRN for pain for 5 Days, #30 TAB 0 Refills Pregabalin (Pregabalin) 75 Mg Capsule 1 CAP PO Q12H MDD 2 Capsule(s) for 30 Days, #60 CAP 0 Refills Clonidine HCl (Clonidine HCl) 0.1 Mg Tablet 0.3 MG PO BID for 30 Days, #60 TAB Prednisone* (Prednisone*) 20 Mg Tablet 20 MG PO QAM@0830 for 5 Days, #10 TAB Changed Medications: Carvedilol (Carvedilol) 12.5 Mg Tablet 25 MG PO BID for 30 Days, #60 TAB (Changed from: 12.5 MG) Insulin Glargine,Hum.rec.anlog* (Lantus*) 100 Unit/1 Ml Vial 30 UNIT SQ HS for 30 Days, #1 VIAL (Changed from: 41 UNIT) Continued Medications: Acetaminophen (Acetaminophen) 500 Mg Tablet 2 TAB PO BID PRN for pain Aspirin (Vazalore) 81 Mg Capsule Atorvastatin Calcium* (Lipitor*) 40 Mg Tablet 1 TAB PO HS for 30 Days, #30 TAB Benzonatate (Benzonatate) 100 Mg Capsule 1 TAB PO TID PRN for cough Hydralazine HCl (Hydralazine HCl) 50 Mg Tablet 0.5 TAB PO Q12H for 30 Days, #30 TAB 0 Refills Insulin Lispro (Insulin Lispro Kwikpen U-100) 100 Unit/Ml Insuln.pen SQ Isosorbide Mononitrate (Isosorbide Mononitrate Er) 30 Mg Tab.er.24h 30 MG PO DAILY for 60 Days, #30 TAB.SR Omeprazole (Omeprazole) 20 Mg Capsule.dr 40 MG PO ONCE Tamsulosin Hcl* (Flomax*) 0.4 Mg Cap.sr.24h 1 TAB PO BKF Discontinued Medications: Losartan Potassium (Losartan Potassium) 50 Mg Tablet 100 MG PO HS for 30 Days, #30 TAB Sulfamethoxazole/Trimethoprim SS Tab* (Bactrim SS Tablet*) 400 Mg-80 Mg Tablet 1 TAB PO BID, TAB Discharge Summary: History of Present Illness as per admitting physician: Patient is a 39-year-old male with history of type 1 diabetes, hypertension and CKD who came to the ED due to right flank pain. Patient reports that he has been experiencing right flank pain for 2-1/2 weeks, 8/10 in intensity, radiated to anterior abdomen, worsened by movement, accompanied with nausea and vomiting, subjective fevers and chills. Patient reports that due to the discomfort he has had a poor appetite and has not been drinking much fluids. Overall symptoms of worsened for the past 3 days or so. Patient did go to [facility] one-week ago and completed a trial of antibiotics, however, symptoms did not improve. He he did take some hydrocodone yesterday which he states improved the pain for about 45 minutes. Currently pain is 6/10 after Dilaudid which was given in the ER. Hospital Course: The patient was admitted with right flank pain, initially thought to be secondary to lumbar paraspinal spasm. Shingles was considered but ruled out due to the absence of a rash. Urinalysis was negative, ruling out pyelonephritis. However, CT abdomen/pelvis revealed possible cystitis with bilateral perinephric stranding. The patient was started on empiric ceftriaxone for three days, which was discontinued on 04/04/2025. Persistent pain led to escalation of analgesics to Percocet and Dilaudid, and pregabalin with prednisolone were added. MRI of the spine was recommended as an outpatient. The patient also had acute kidney injury on chronic kidney disease stage III, likely ATN on diabetic nephropathy. Admission labs showed Cr 3.58, BUN 29, GFR 19, with metabolic acidosis in the setting of hyperglycemia (BG 345, A1c 8.4). Pseudohyponatremia corrected with improved glucose control. IV fluids were administered, and he was placed on hyper/hypoglycemia protocol. Due to poor oral intake and a hypoglycemic episode on 04/04/2025, Lantus was reduced from 51 to 40 units. He was noted to be noncompliant with medications and follow-up and was advised to follow up with nephrology, endocrinology, ophthalmology, and podiatry as an outpatient. Hypertension was initially elevated on admission, worsened by pain, and managed with IV hydralazine followed by continuation of hydralazine 50 mg BID and Coreg, with losartan held due to DUSTIN. On 04/04/2025, Coreg was increased to 25 mg BID. Cardiac history includes EF 65-70%, mild concentric LVH, and Lexiscan (02/03) showing a small, partially reversible inferior wall perfusion defect consistent with ischemia. The patient remained on aspirin and Imdur. Renal function stabilized but did not significantly improve by 04/04/2025. Pain remained a limiting factor for mobility. He will require close outpatient follow-up. Discharge Course: Patient is advised to follow-up with PCP if his pain worsens and to get an MRI throaco-lumbar spine. Follow up with Dr. Sanchez, appointment in May 2025 already made. Follow up with Dr. Sanchez every 3 mths. No diet or regular sodas, follow a <2gram sodium diet at all times, follow a Kidney, low protien diet (DASH Diet). Follow up with program engineer in view of diabetes management Physical Exam: General: awake, alert oriented to place, time, and person HEENT: Mild pallor present, no icterus, moist mucous membranes Neck: No masses and tenderness Resp: Unlabored. Lungs clear to auscultation bilaterally. Chest: Normal expansion Cardiovascular: Regular Rate and rhythm, normal S1 and S2 Abdomen: Soft and tender to touch in right flank and right costovertebral area Neuro: No focal weakness in the upper and lower limb muscles, power of the muscles 5/5 bilateral upper and lower extremities, normal reflexes bilaterally. Cranial nerves intact Extremities: No cyanosis,clubbing or edema Skin: Warm and Dry. No lesions Psych: Normal affect Laboratory Tests Test 04/03/25 17:08 04/03/25 20:45 04/03/25 21:32 04/04/25 00:16 Glucometer 99 mg/dl 93 mg/dl 64 mg/dl Urine Eosinophils No eos /HPF Urine Random Creatinine 81.0 MG/DL Urine Random Total Protein 405.3 MG/DL Urine Random Sodium 89 MEQ/L Urine Random Potassium 26 MEQ/L Urine Random Urea 382.0 MG/DL Test 04/04/25 00:51 04/04/25 01:19 04/04/25 05:29 04/04/25 07:14 Glucometer 70 mg/dl 116 mg/dl 80 mg/dl White Blood Count 6.2 X10'3 Red Blood Count 4.32 X10'6 Hemoglobin 12.6 g/dl Hematocrit 37.1 % Mean Corpuscular Volume 85.9 FL Mean Corpuscular Hemoglobin 29.2 PG Mean Corpuscular Hemoglobin Concent 34.0 g/dL Red Cell Distribution Width 13.6 % Platelet Count 383 X10'3 Mean Platelet Volume 7.4 FL Neutrophils (%) (Auto) 61.7 % Lymphocytes (%) (Auto) 25.0 % Monocytes (%) (Auto) 9.3 % Eosinophils (%) (Auto) 3.3 % Basophils (%) (Auto) 0.7 % Neutrophils # (Auto) 3.8 X10'3 Lymphocytes # (Auto) 1.5 X10'3 Monocytes # (Auto) 0.6 X10'3 Eosinophils # (Auto) 0.2 X10'3 Basophils # (Auto) 0.0 X10'3 CBC Comment Erythrocyte Sedimentation Rate 28 MM/HR Sodium Level 139 MMOL/L Potassium Level 4.0 MMOL/L Chloride Level 106 MMOL/L Carbon Dioxide Level 24.9 MMOL/L Anion Gap 8 Blood Urea Nitrogen 25 MG/DL Creatinine 3.28 MG/DL Estimated GFR/1.73 m2 21 ML/MIN BUN/Creatinine Ratio 7.6 Glucose Level 110 MG/DL Calcium Level 8.5 MG/DL Magnesium Level 1.9 MG/DL Total Bilirubin 0.2 MG/DL Aspartate Amino Transf (AST/SGOT) 20 U/L Alanine Aminotransferase (ALT/SGPT) 20 U/L Alkaline Phosphatase 82 IU/L Total Protein 6.3 G/DL Albumin 2.7 G/DL Globulin 3.6 G/DL Albumin/Globulin Ratio 0.8 Thyroid Stimulating Hormone (TSH) 1.32 ulU/ml Free Thyroxine 0.93 NG/DL Chemistry Comments Test 04/04/25 07:53 04/04/25 08:22 04/04/25 10:38 04/04/25 11:01 Glucometer 77 mg/dl 82 mg/dl 56 mg/dl 73 mg/dl Test 04/04/25 11:42 04/04/25 13:08 04/04/25 14:24 04/04/25 17:20 Glucometer 169 mg/dl 185 mg/dl 173 mg/dl 211 mg/dl Test 04/04/25 17:40 04/04/25 21:08 04/04/25 23:08 04/05/25 04:39 Glucometer 211 mg/dl 188 mg/dl White Blood Count 6.1 X10'3 Red Blood Count 3.96 X10'6 Hemoglobin 11.7 g/dl Hematocrit 34.5 % Mean Corpuscular Volume 87.2 FL Mean Corpuscular Hemoglobin 29.6 PG Mean Corpuscular Hemoglobin Concent 33.9 g/dL Red Cell Distribution Width 12.9 % Platelet Count 347 X10'3 Mean Platelet Volume 7.9 FL Neutrophils (%) (Auto) 72.1 % Lymphocytes (%) (Auto) 19.1 % Monocytes (%) (Auto) 7.5 % Eosinophils (%) (Auto) 0.9 % Basophils (%) (Auto) 0.4 % Neutrophils # (Auto) 4.4 X10'3 Lymphocytes # (Auto) 1.2 X10'3 Monocytes # (Auto) 0.5 X10'3 Eosinophils # (Auto) 0.1 X10'3 Basophils # (Auto) 0.0 X10'3 CBC Comment Erythrocyte Sedimentation Rate 25 MM/HR Sodium Level 137 MMOL/L Potassium Level 4.1 MMOL/L Chloride Level 107 MMOL/L Carbon Dioxide Level 21.2 MMOL/L Anion Gap 9 Blood Urea Nitrogen 21 MG/DL Creatinine 2.89 MG/DL Estimated GFR/1.73 m2 25 ML/MIN BUN/Creatinine Ratio 7.3 Glucose Level 102 MG/DL Calcium Level 8.4 MG/DL Magnesium Level 1.9 MG/DL Total Bilirubin 0.2 MG/DL Aspartate Amino Transf (AST/SGOT) 18 U/L Alanine Aminotransferase (ALT/SGPT) 14 U/L Alkaline Phosphatase 76 IU/L Lactate Dehydrogenase 172 U/L Total Protein 6.1 G/DL Albumin 2.5 G/DL Globulin 3.6 G/DL Albumin/Globulin Ratio 0.7 Chemistry Comments HIV (1&2) Antibody Non-reactive Test 04/05/25 07:13 04/05/25 07:50 04/05/25 08:30 04/05/25 09:41 Glucometer 72 mg/dl 71 mg/dl 149 mg/dl Vital Signs Date Time Temp Pulse Resp B/P (MAP) Pulse Ox O2 Delivery O2 Flow Rate FiO2 04/05/25 10:08 97.8 76 18 159/100 (119) 98 04/05/25 08:00 Room Air 0.0 Chemistry Test 04/05/25 04:39 Albumin 2.5 G/DL (3.4-5.0) L Albumin/Globulin Ratio 0.7 (1.1-1.5) L Calcium Level 8.4 MG/DL (8.5-10.1) L Globulin 3.6 G/DL (2.7-4.3) Magnesium Level 1.9 MG/DL (1.5-2.4) Total Protein 6.1 G/DL (6.4-8.2) L LFT Test 04/05/25 04:39 Alanine Aminotransferase (ALT/SGPT) 14 U/L (12-78) Alkaline Phosphatase 76 IU/L (46-116) Aspartate Amino Transf (AST/SGOT) 18 U/L (10-37) Total Bilirubin 0.2 MG/DL (0.1-1.0) Imaging: Ct Abdomen/Pelvis : Wall thickening about the urinary bladder raising the possibility of cystitis in the appropriate clinical setting. Nonspecific bilateral perinephric stranding, infectious/ inflammatory process cannot be excluded *Problems/Diagnosis: (1) Lumbar paraspinal muscle spasm Status: Acute (2) Type 1 diabetes Status: Acute (3) DUSTIN (acute kidney injury) (4) CKD (chronic kidney disease) stage 3, GFR 30-59 ml/min Total Time Spent on D/C: > 30 Minutes Addendum ac pyelonephritis, uti, ruled out Date of Service: Apr 05, 2025 Billing Provider: LILO CARVALHO MD Common Visit Codes: 24085-MLD/OBS DISCH DAY >30min CUJOSE SINHA, RES Apr 05, 2025 11:58 LILO CARVALHO MD Apr 05, 2025 21:44
[2025-04-05] MEDS ORDERED: hydrALAZINE 20mg/ml inj. IV SCH (14:00)
[2025-04-05] MEDS ORDERED: PREG75CA76 PO (14:37)
[2025-04-05 15:11] VITALS: RESP 16
[2025-04-06 05:13] LABS: HBSAG SCREEN Negative (Negative)
[2025-04-06 11:17] LABS: ANTINUCLEAR ANTIBODIES Negative (Negative); ANTISTREPTOLYSIN O AB 77.5 IU/mL (0.0-200.0); COMPLEMENT C3, SERUM 132 mg/dL (82-167); COMPLEMENT C4, SERUM 26 mg/dL (12-38)
[2025-04-07 05:28] LABS: HEPATITIS C VIRUS ANTIBODY Non Reactive (Non Reactive)
[2025-04-08 11:24] LABS: ATYPICAL PANCA <1:20 titer (Neg:<1:20); CYTOPLASMIC (C-ANCA) <1:20 titer (Neg:<1:20); PERINUCLEAR (P-ANCA) <1:20 titer (Neg:<1:20)
== END 2025-04-05 15:49 | disposition home health service (06) | DRG 347 ==
LOC: ER 21:30 → ED HOLD 04-03 04:42 → EDBEDREQ 04-03 05:35 → SUR 3N 04-03 07:49
PROVIDERS: ADMIT Internal Medicine Pulmonary Disease; ATTEND Internal Medicine
DX: M62.830 Muscle spasm of back (principal); N17.0 Acute kidney failure with tubular necrosis; E10.21 Type 1 diabetes mellitus with diabetic nephropathy; E87.20 Acidosis, unspecified; E10.22 Type 1 diabetes mellitus with diabetic chronic kidney disease; N10 Acute pyelonephritis; I16.0 Hypertensive urgency; E03.9 Hypothyroidism, unspecified; N18.30 Chronic kidney disease, stage 3 unspecified; I12.9 Hypertensive chronic kidney disease with stage 1 through stage 4 chronic kidney disease, or unspecified chronic kidney disease; E10.65 Type 1 diabetes mellitus with hyperglycemia; Z79.4 Long term (current) use of insulin; Z79.82 Long term (current) use of aspirin; Z79.899 Other long term (current) drug therapy; Z86.73 Personal history of transient ischemic attack (TIA), and cerebral infarction without residual deficits; Z87.891 Personal history of nicotine dependence
CPT/HCPCS: 36415; 74150; 80053; 81001; 81003; 82570; 82595; 82948; 83036; 83615; 83690; 83735; 84133; 84145; 84156; 84300; 84439; 84443; 84540; 85025; 85610; 85651; 85730; 86038; 86060; 86160; 86256; 86703; 86803; 87081; 87088; 87207; 87340; 87522; 96361; 96374; 99285; G0378; J0131; J0360; J0696; J1171; J1644; J1815; J2270; J2405; J7030; J7121; J7512

== ENCOUNTER 2025-05-24 12:15 | Emergency (ER) | payer MEDICAID ==
[~2025-05-24] VITALS: Ht 195.6 cm; Wt 116.0 kg
[~2025-05-24 12:15] MED LIST changes: -ASPI-1071 PO; +ASPI81CA; -ATOR20TA66 PO; +ATOR40TA PO; -BENZ-111 PO; +BENZ-268 PO; +CLON0.1T2 PO; -LOSA50TA64 PO; +OXYC-150 PO; +PRED20TA PO; +PREG75CA76 PO
--- NOTE | 2025-05-24 13:26 | ELECTROCARDIOGRAPH REPORT ---
[facility] Test Date: 2025-05-24 Test Time: 12:20:27 Pat Name: ANANYA MCCOLLUM Department: EMERGENCY ROOM Room: Gender: M Stonemason: LLOYD : 1985 Requested By: DEPARTMENT EMERGENCY Order Number: [id number] Reading MD: Measurements Intervals [place] Rate: 114 P: 45 [place]: 138 QRS: 46 QRSD: 100 T: -9 QT: 328 QTc: 452 Interpretive Statements Sinus tachycardia Borderline repolarization abnormality Please click the below link to view image of tracing.
--- NOTE | 2025-05-24 13:27 | Physician Documentation ---
History of Present Illness ~ General Chief Complaint: General Stated Complaint: SOB Time Seen by MD: 17:38 Primary Medical Doctor: residents team History of Present Illness Initial Comments An year old male with a history of stage IV kidney failure, reports having a severe headache general weakness after going camping History as above. Mild nausea. Medication Reconciliation Allergies: Coded Allergies: gabapentin (Unverified Adverse Reaction, Intermediate, SEIZURES/WT GAIN, 05/24/25) ADV REACTION ONLY EXPERIENCED ONLY AFTER HALF-WAY TREATENT PER PT Scheduled Atorvastatin Calcium* (Lipitor*), 1 TAB PO HS, (Reported) Carvedilol (Carvedilol), 25 MG PO BID Clonidine HCl (Clonidine HCl), 0.3 MG PO BID Hydralazine HCl (Hydralazine HCl), 0.5 TAB PO Q12H Insulin Glargine,Hum.rec.anlog* (Lantus*), 30 UNIT SQ HS Isosorbide Mononitrate (Isosorbide Mononitrate Er), 30 MG PO DAILY Omeprazole (Omeprazole), 40 MG PO ONCE, (Reported) Prednisone* (Prednisone*), 20 MG PO QAM@0830 Pregabalin (Pregabalin), 1 CAP PO Q12H Tamsulosin Hcl* (Flomax*), 1 TAB PO BKF, (Reported) Scheduled PRN Acetaminophen (Acetaminophen), 2 TAB PO BID PRN for pain, (Reported) Benzonatate (Benzonatate), 1 TAB PO TID PRN for cough, (Reported) Oxycodone HCl/Acetaminophen (Percocet 10-325 mg Tablet), 1 TAB PO QID PRN PRN for pain Miscellaneous Medications Aspirin (Vazalore), (Reported) Insulin Lispro (Insulin Lispro Kwikpen U-100), SQ, (Reported) Past Medical History Past Medical History: Hypertension, Diabetes, Chronic Back Pain Past Surgical History: orthopedic surgeries, other Patient History: FH: CVA (cerebrovascular accident) MOTHER FH: cholecystectomy FATHER FH: hypothyroidism MOTHER maternal grandmother Kyphosis MOTHER Alcohol Use: Occasionally Drug Use: none Lives with: Family Lives In: Home Occupation: disabled Review of Systems ROS All review of systems negative except as per HPI Physical Exam Physical Exam Vital Signs: Temperature: 98.7, Source: Temporal, Heart Rate: 114, Respiratory Rate: 18, BP: 159/82, Pulse Oximetry: 98, Weight: 116.000 Physical Exam General: Patient is awake, alert, oriented x4 in no acute distress Head: Normocephalic and atraumatic. Eyes: Conjunctival normal. EOMI. PERRL. ENT: Mucous membranes moist. Neck: Supple, trachea is midline. Chest: Clear to auscultation bilaterally without rales, rhonchi, or wheezes. There is no accessory muscle use or retractions. Cardiac: Heart rate 96 and regular without murmurs, gallops, or rubs. Abd: Soft, nondistended, nontender, with normoactive bowel sounds. No guarding, rebound, or rigidity. Progress Results/Orders Results/Orders Orders - DARIUS SPIVEY MD Acetaminophen 325mg Tablet (Tylenol Tabl (05/24/25 17:45) Ondansetron Disint. Tablet (Zofran Odt T (05/24/25 17:45) Vital Signs 05/24/25 12:27 Temp 98.7 Pulse 114 Resp 18 B/P (MAP) 159/82 Pulse Ox 98 Laboratory Tests Test 05/24/25 12:21 White Blood Count 7.7 Red Blood Count 4.65 L Hemoglobin 13.6 L Hematocrit 40.1 L Mean Corpuscular Volume 86.1 Mean Corpuscular Hemoglobin 29.3 Mean Corpuscular Hemoglobin Concent 34.0 Red Cell Distribution Width 13.1 Platelet Count 420 Mean Platelet Volume 8.2 Neutrophils (%) (Auto) 73.0 Lymphocytes (%) (Auto) 18.0 L Monocytes (%) (Auto) 7.4 Eosinophils (%) (Auto) 1.0 Basophils (%) (Auto) 0.6 Neutrophils # (Auto) 5.6 Lymphocytes # (Auto) 1.4 Monocytes # (Auto) 0.6 Eosinophils # (Auto) 0.1 Basophils # (Auto) 0.0 CBC Comment Sodium Level 136 Potassium Level 4.4 Chloride Level 102 Carbon Dioxide Level 23.7 L Anion Gap 10 Blood Urea Nitrogen 24 H Creatinine 2.76 H Estimated GFR/1.73 m2 26 BUN/Creatinine Ratio 8.7 L Glucose Level 289 H Calcium Level 8.5 Total Bilirubin 0.6 Aspartate Amino Transf (AST/SGOT) 17 Alanine Aminotransferase (ALT/SGPT) 16 Alkaline Phosphatase 99 Total Protein 7.0 Albumin 3.1 L Globulin 3.9 Albumin/Globulin Ratio 0.8 L Chemistry Comments Medical Decision Making Additional info obtained from: other Findings Patient presents to the emergency room generally not feeling well. Different ials include but are not limited to kidney failure, electrolyte disturbances, viral syndrome, dehydration therefore emergent labs ordered which were reassuring. Transient tachycardia and upon review of old records he has had episodes of this previously. ER precautions discussed. Differential Diagnosis Kidney failure, electrolyte disturbances, viral syndrome Departure Disposition: HOME / SELF CARE / HOMELESS Impression: Primary Impression: General medical exam Condition: Stable Discharge Instructions: Viral Illness, Adult Referrals: NO PRIMARY CARE PROVIDER (PCP) Signature Scribe Signature: No scribe Attestation: The note accurately reflects work and decisions made by me.Darius Spivey MD 05/24/25 17:46 AG LANGE NP May 24, 2025 13:27 DARIUS SPIVEY MD May 24, 2025 17:47
[2025-05-24 13:32] LABS: MEAN PLATELET VOLUME 8.2 FL (7.4-10.4); RED CELL DISTRIBUTION WIDTH 13.1 % (11.5-14.5)
[2025-05-24 13:45] LABS: CREATININE 2.76 MG/DL (0.60-1.10); TOTAL CARBON DIOXIDE 23.7 MMOL/L (24-32); eCRCL 45 ML/MIN; eGFR 26 ML/MIN
[2025-05-24] MEDS: ondansetron 4mg rapidly disintigrating tab PO ONE (17:51)
[2025-05-24 17:59] VITALS: BP 159/82; PULSE 114; RESP 18; TEMP 98.7; O2SAT 98
== END 2025-05-24 18:00 | disposition home or self-care (01) ==
LOC: ER 12:16
DX: R51.9 Headache, unspecified (principal); R53.1 Weakness; R25.2 Cramp and spasm; R11.0 Nausea; I12.9 Hypertensive chronic kidney disease with stage 1 through stage 4 chronic kidney disease, or unspecified chronic kidney disease; E11.22 Type 2 diabetes mellitus with diabetic chronic kidney disease; N18.4 Chronic kidney disease, stage 4 (severe); G89.29 Other chronic pain; Z88.8 Allergy status to other drugs, medicaments and biological substances; Z79.899 Other long term (current) drug therapy; Z79.4 Long term (current) use of insulin; Z98.890 Other specified postprocedural states; Z72.89 Other problems related to lifestyle
CPT/HCPCS: 36415; 80053; 85025; 93005; 99284

== ENCOUNTER 2025-05-27 18:11 | Emergency (ER) | payer MEDICAID ==
[~2025-05-27] VITALS: Ht 195.6 cm; Wt 111.7 kg
[2025-05-27 18:54] VITALS: BP 180/115; PULSE 108; RESP 15; TEMP 96; O2SAT 99
--- NOTE | 2025-05-27 18:57 | Physician Documentation ---
History of Present Illness ~ Chief Complaint: Wound Re-Check Stated Complaint: BADAGE CHANGE Time Seen by MD: 20:40 Primary Medical Doctor: residents team Source: patient Mode of Arrival: POV Exam Limitations: no limitations HPI 40-year-old male with history of diabetes recently had his left great toe amputated did get medically cleared went on a hike he has noticed some bloody discharge denies any signs of infection but would like this evaluated Tetanus within 5 years?: No (2014) Medication Reconciliation Allergies: Coded Allergies: gabapentin (Unverified Adverse Reaction, Intermediate, SEIZURES/WT GAIN, 05/27/25) ADV REACTION ONLY EXPERIENCED ONLY AFTER LEAF FAT SCRAPER TREATENT PER PT Scheduled Atorvastatin Calcium* (Lipitor*), 1 TAB PO HS, (Reported) Carvedilol (Carvedilol), 25 MG PO BID Cephalexin*Monohydrate* (Keflex*), 1 CAP PO Q12H Clonidine HCl (Clonidine HCl), 0.3 MG PO BID Hydralazine HCl (Hydralazine HCl), 0.5 TAB PO Q12H Insulin Glargine,Hum.rec.anlog* (Lantus*), 30 UNIT SQ HS Isosorbide Mononitrate (Isosorbide Mononitrate Er), 30 MG PO DAILY Omeprazole (Omeprazole), 40 MG PO ONCE, (Reported) Prednisone* (Prednisone*), 20 MG PO QAM@0830 Pregabalin (Pregabalin), 1 CAP PO Q12H Tamsulosin Hcl* (Flomax*), 1 TAB PO BKF, (Reported) Scheduled PRN Acetaminophen (Acetaminophen), 2 TAB PO BID PRN for pain, (Reported) Benzonatate (Benzonatate), 1 TAB PO TID PRN for cough, (Reported) Oxycodone HCl/Acetaminophen (Percocet 10-325 mg Tablet), 1 TAB PO QID PRN PRN for pain Miscellaneous Medications Aspirin (Vazalore), (Reported) Insulin Lispro (Insulin Lispro Kwikpen U-100), SQ, (Reported) Past Medical History Past Medical History: Hypertension, Diabetes, Chronic Back Pain Past Surgical History: orthopedic surgeries, other Patient History: FH: CVA (cerebrovascular accident) MOTHER FH: cholecystectomy FATHER FH: hypothyroidism MOTHER maternal grandmother Kyphosis MOTHER Alcohol Use: Occasionally Drug Use: none Lives with: Family Lives In: Home Occupation: disabled Review of Systems All Other Systems at this time: Reviewed and Negative Integumentary: Reports: see HPI Physical Exam Physical Exam General: Alert, no apparent distress. HEENT: moist mucous membranes. Neck: Full range of motion. Respiratory: No respiratory distress speaking in full sentences Chest: No accessory muscle use. Cardiovascular: Appears well perfused Neurologic: Oriented x4. Psychiatric: Normal mood and affect. Skin: Normal color, warm and dry. No edema, no ecchymosis. Left great toe amputation surgical site appears to be noninfected 1 of the flaps is slightly lifted some slough but granulating tissue noted no erythema or obvious swelling. Skin flap approximately 1-1/2 cm triangular shaped no exposed bone superficial in appearance Progress Results/Orders Results/Orders Vital Signs 05/27/25 18:54 Temp 96.0 Pulse 108 Resp 15 B/P (MAP) 180/115 Pulse Ox 99 Medical Decision Making Additional information obtaine: N/A Findings Surgical flap to left great toe amputation slightly lifted granulated tissue noted without signs of infection some sloughing no erythema swelling or discharge. Cleansed wound patient had surgery in [place]. Discussed follow up with primary care and calling dairy management specialist to evaluate even with a telephone encounter. Wound care and prophylactic antibiotics due to diabetes and risk of infection. Differential Dx:Considerations: Include: Cellulitis, Dressing change, Healing wound, Other Departure Time of Disposition: 20:47 Disposition: 01 HOME / SELF CARE / HOMELESS Impression: Primary Impression: Non-healing surgical wound Condition: Stable Discharge Instructions: Wound Care, Adult Additional Instructions: Antibiotics as a preventative to infection due to diabetes and the wound being on your foot. Keep wound clean and dry use soap and water you can use the alginate you have with a large Band-Aid instead of using a tight Jaamr wrap where 2 pairs of socks as needed for cleanliness. Contact your surgeon's office to see if there is any options for TeleMed communication or even your primary care for further treatment and evaluation as this could be a longer healing wound due to your diabetes Referrals: NO PRIMARY CARE PROVIDER (PCP) Prescriptions Cephalexin*Monohydrate* (Keflex*) 500 Mg Capsule 1 CAP PO Q12H for 10 Days, #20 CAP Prov: SHAGUFTA DE PAZ MUSEUM SECURITY CHIEF 05/27/25 Education Educated: Patient Educated regarding: diagnosis, treatment, need for follow up Signature Scribe Signature: No scribe Attestation: The note accurately reflects work and decisions made by me.Shagufta AYALA 05/27/25 20:49 SHAGUFTA DE PAZ NP May 27, 2025 18:57
[2025-05-27] MEDS ORDERED: CEPH-585 PO (20:49)
== END 2025-05-27 20:59 | disposition home or self-care (01) ==
LOC: ER 18:13
DX: T81.89XA Other complications of procedures, not elsewhere classified, initial encounter (principal); E11.9 Type 2 diabetes mellitus without complications; I10 Essential (primary) hypertension; Z88.8 Allergy status to other drugs, medicaments and biological substances; X58.XXXA Exposure to other specified factors, initial encounter; Y93.89 Activity, other specified; Y92.89 Other specified places as the place of occurrence of the external cause; Y99.8 Other external cause status
CPT/HCPCS: 99283

== ENCOUNTER 2025-06-09 02:38 | Emergency (ER) | payer MEDICAID ==
[~2025-06-09] VITALS: Ht 195.6 cm; Wt 118.2 kg
[2025-06-09 02:48] VITALS: TEMP 95.9
--- NOTE | 2025-06-09 02:59 | Physician Documentation ---
History of Present Illness ~ Chief Complaint: Hypoglycemia Stated Complaint: LOW BLOOD SUGAR Time Seen by MD: 02:57 Primary Medical Doctor: residents team HPI Patient presents to the emergency room with chief complaint of hypoglycemia. This has been going on frequently. Denies any fevers or symptoms of infection. Medication Reconciliation Allergies: Coded Allergies: gabapentin (Unverified Adverse Reaction, Intermediate, SEIZURES/WT GAIN, 05/27/25) ADV REACTION ONLY EXPERIENCED ONLY AFTER FISHER LOBSTER TREATENT PER PT Scheduled Atorvastatin Calcium* (Lipitor*), 1 TAB PO HS, (Reported) Carvedilol (Carvedilol), 25 MG PO BID Clonidine HCl (Clonidine HCl), 0.3 MG PO BID Hydralazine HCl (Hydralazine HCl), 0.5 TAB PO Q12H Insulin Glargine,Hum.rec.anlog* (Lantus*), 30 UNIT SQ HS Isosorbide Mononitrate (Isosorbide Mononitrate Er), 30 MG PO DAILY Omeprazole (Omeprazole), 40 MG PO ONCE, (Reported) Prednisone* (Prednisone*), 20 MG PO QAM@0830 Pregabalin (Pregabalin), 1 CAP PO Q12H Tamsulosin Hcl* (Flomax*), 1 TAB PO BKF, (Reported) Scheduled PRN Acetaminophen (Acetaminophen), 2 TAB PO BID PRN for pain, (Reported) Benzonatate (Benzonatate), 1 TAB PO TID PRN for cough, (Reported) Oxycodone HCl/Acetaminophen (Percocet 10-325 mg Tablet), 1 TAB PO QID PRN PRN for pain Miscellaneous Medications Aspirin ([place]az[place]), (Reported) Insulin Lispro (Insulin Lispro Kwikpen U-100), SQ, (Reported) Discontinued Medications Cephalexin*Monohydrate* (Keflex*), 1 CAP PO Q12H Discontinued Reason: Auto Discontinued Past Medical History Past Medical History: Hypertension, Diabetes, Chronic Back Pain Past Surgical History: orthopedic surgeries, other Patient History: FH: CVA (cerebrovascular accident) MOTHER FH: cholecystectomy FATHER FH: hypothyroidism MOTHER maternal grandmother Kyphosis MOTHER Alcohol Use: Occasionally Drug Use: none Lives with: Family Lives In: Home Occupation: disabled Review of Systems ROS Positive nausea with vomiting otherwise negative except as per HPI Physical Exam Vital Signs: Temperature: 95.9, Source: Oral, Heart Rate: 85, Respiratory Rate: 18, BP: 138/94, Pulse Oximetry: 100, Weight: 118.180 Physical Exam General: Patient is awake, alert, oriented x4 in no acute distress and well appearing.~ Head: Normocephalic and atraumatic. Eyes: Conjunctival normal. EOMI. PERRL. ENT: Mucous membranes moist. Neck: Supple, trachea is midline. Chest: Clear to auscultation bilaterally without rales, rhonchi, or wheezes. There is no accessory muscle use or retractions. Cardiac: RRR without murmurs, gallops, or rubs. Abd: Soft, nondistended, nontender, with normoactive bowel sounds. No guarding, rebound, or rigidity. . Progress Results/Orders Results/Orders Orders - DARIUS SPIVEY MD Accucheck (06/09/25 02:55) Saline Lock (06/09/25 02:57) Nothing By Mouth (06/09/25 Dinner) Completed Orders - DARIUS SPIVEY MD Cbc/Diff (06/09/25 02:55) MG (06/09/25 02:55) PHOS (06/09/25 02:55) Lipase (06/09/25 02:57) CMP (06/09/25 02:57) Procalcitonin (06/09/25 02:57) Normal Saline 1000ml (0.9% Sodium Chlori (06/09/25 03:00) Acetaminophen 1,000mg/100ml Iv (Ofirmev (06/09/25 03:05) Ondansetron Inj. (Zofran 4mg/2ml Vial) (06/09/25 03:05) Insulin Regular, Human (Humulin R 10 Uni (06/09/25 04:15) Ua W/Microscopic, Cult If Ind (06/09/25 03:45) Normal Saline 1000ml (0.9% Sodium Chlori (06/09/25 04:35) Insulin Regular, Human (Humulin R 10 Uni (06/09/25 05:15) Medications Received in ER Medications (Trade) Dose Ordered Sig/Gabi Route PRN Reason Start Time Stop Time Status Last Admin Dose Admin Sodium Chloride 1,000 ml @ 1,000 mls/hr ONCE ONCE IV 06/09/25 03:00 06/09/25 03:59 DC 06/09/25 03:20 1,000 MLS/HR Acetaminophen 100 ml @ 400 mls/hr ONCE ONCE IV 06/09/25 03:05 06/09/25 03:19 DC 06/09/25 03:21 400 MLS/HR (Zofran 4mg/2ml vial) 4 mg ONCE ONCE IV 06/09/25 03:05 06/09/25 03:06 DC 06/09/25 03:20 4 MG (HumuLIN R 10 units per 0.1 ML syringe) 10 units ONCE ONCE IV 06/09/25 04:15 06/09/25 04:16 DC 06/09/25 04:30 10 UNITS Sodium Chloride 1,000 ml @ 1,000 mls/hr ONCE ONCE IV 06/09/25 04:35 06/09/25 05:34 DC 06/09/25 04:36 1,000 MLS/HR (HumuLIN R 10 units per 0.1 ML syringe) 5 units ONCE ONCE IV 06/09/25 05:15 06/09/25 05:16 DC 06/09/25 05:17 5 UNITS Vital Signs 06/09/25 06/09/25 06/09/25 06/09/25 02:48 03:34 03:37 04:52 Temp 95.9 Pulse 85 82 91 Resp 18 17 19 B/P (MAP) 138/94 160/95 (116) 166/96 (119) Pulse Ox 100 100 99 O2 Flow Rate 0 0 Laboratory Tests Test 06/09/25 02:46 06/09/25 03:26 06/09/25 03:45 06/09/25 04:29 Glucometer 491 *H 540 *H White Blood Count 6.6 Red Blood Count 4.46 L Hemoglobin 12.6 L Hematocrit 38.5 L Mean Corpuscular Volume 86.2 Mean Corpuscular Hemoglobin 28.3 Mean Corpuscular Hemoglobin Concent 32.8 L Red Cell Distribution Width 13.0 Platelet Count 373 Mean Platelet Volume 8.1 Neutrophils (%) (Auto) 62.7 Lymphocytes (%) (Auto) 25.2 Monocytes (%) (Auto) 8.8 Eosinophils (%) (Auto) 2.6 Basophils (%) (Auto) 0.7 Neutrophils # (Auto) 4.1 Lymphocytes # (Auto) 1.7 Monocytes # (Auto) 0.6 Eosinophils # (Auto) 0.2 Basophils # (Auto) 0.0 CBC Comment Sodium Level 125 L Potassium Level 4.4 Chloride Level 95 L Carbon Dioxide Level 25.0 Anion Gap 5 L Blood Urea Nitrogen 15 Creatinine 2.43 H Estimated GFR/1.73 m2 30 BUN/Creatinine Ratio 6.2 L Glucose Level 518 *H Calcium Level 7.8 L Phosphorus Level 3.6 Magnesium Level 1.9 Total Bilirubin 0.3 Aspartate Amino Transf (AST/SGOT) 16 Alanine Aminotransferase (ALT/SGPT) 13 Alkaline Phosphatase 123 H Total Protein 6.2 L Albumin 2.6 L Globulin 3.6 Albumin/Globulin Ratio 0.7 L Lipase 25 Procalcitonin < 0.05 Chemistry Comments Urine Specimen Description Voided Urine Color Straw Urine Clarity Clear Urine pH 6.0 Urine Specific [place] 1.010 Urine Protein 100 H Urine Glucose (UA) >=1000 H Urine Ketones Negative Urine Occult Blood Negative Urine Nitrite Negative Urine Bilirubin Negative Urine Urobilinogen 0.2 Urine Leukocyte Esterase Negative Urine RBC None seen Urine WBC 0-4 Urine Squamous Epithelial Cells None seen Urine Bacteria Few Urine Culture Indicated Not ind Volume Urine Centrifuged 10 ml Urine Comment Test 06/09/25 05:09 Glucometer 376 H Medical Decision Making Additional information obtaine: old records Findings Patient presents to the emergency room with chief complaint of hypoglycemia. Differentials include but are not limited to an adverse medication reaction, infection, suicidal attempt therefore emergent labs ordered. That has seems patient's blood glucose monitor that has inaccurate. I will give him another blood glucose monitor with instructions to take frequent blood sugar readings and to follow up with his doctor. ER precautions regarding hypoglycemia discussed. Differential Dx:Considerations: Include: Encephalopathy, Hypoglycemia Departure Disposition: HOME / SELF CARE / HOMELESS Impression: Primary Impression: Hyperglycemia Condition: Improved Discharge Instructions: Glucose Monitoring Additional Instructions: Your device that has not measuring your sugars accurately. I will provide a prescription for a glucose monitor so that you can check your device when changing it out or have additional questions about the accuracy in the future. Referrals: NO PRIMARY CARE PROVIDER (PCP) Prescriptions Blood-Glucose Meter (Blood Glucose Monitoring) 1 Each Each UNIT, #1 Prov: DARIUS SPIVEY MD 06/09/25 Blood Sugar Diagnostic (Glucose Test Strip) 1 Each Strip 1 STRIP METER UD, #100 STRIP 0 Refills Prov: DARIUS SPIVEY MD 06/09/25 Signature Scribe Signature: No scribe Attestation: The note accurately reflects work and decisions made by me.Darius Spivey MD 06/09/25 05:44 DARIUS SPIVEY MD Jun 09, 2025 02:59
[2025-06-09] MEDS: ondansetron/PF 4mg/2ml inj IV ONE (03:20)
[2025-06-09] MEDS: normal saline 1000ml 1,000 ML IV ONE ×2 (03:20→04:36)
[2025-06-09] MEDS: acetaminophen 1,000mg/100ml IV 100 ML IV ONE (03:21)
[2025-06-09 03:46] LABS: MEAN PLATELET VOLUME 8.1 FL (7.4-10.4); RED CELL DISTRIBUTION WIDTH 13.0 % (11.5-14.5)
[2025-06-09 04:01] LABS: CREATININE 2.43 MG/DL (0.60-1.10); PHOSPHORUS 3.6 MG/DL (2.3-4.5); TOTAL CARBON DIOXIDE 25.0 MMOL/L (24-32); eCRCL 51 ML/MIN; eGFR 30 ML/MIN
[2025-06-09 04:13] LABS: LEUKOCYTE ESTERASE ,URINE NEGATIVE (Neg); NITRITES, URINE NEGATIVE (Neg); OCCULT BLOOD,URINE NEGATIVE (Neg)
[2025-06-09 04:22] LABS: UA COLLECTION TYPE VOIDED
[2025-06-09 04:23] LABS: SQUAMOUS EPITHELIAL CELL,UR NONE SEEN /LPF (FEW)
[2025-06-09] MEDS: insulin regular, human 10 units/0.1 ml syringe IV ONE ×2 (04:30→05:17)
[2025-06-09 04:52] VITALS: BP 166/96; PULSE 91; RESP 19; O2SAT 99
[2025-06-09] MEDS ORDERED: [UNRECOGNIZED DRUG - CODE] (05:43)
[2025-06-09] MEDS ORDERED: BLOO-122 METER (05:43)
== END 2025-06-09 05:49 | disposition home or self-care (01) ==
LOC: ER 02:38
DX: E11.65 Type 2 diabetes mellitus with hyperglycemia (principal); G89.29 Other chronic pain; I10 Essential (primary) hypertension; Z88.8 Allergy status to other drugs, medicaments and biological substances; Z79.899 Other long term (current) drug therapy; Z98.890 Other specified postprocedural states; Z72.89 Other problems related to lifestyle
CPT/HCPCS: 36415; 80053; 81001; 82948; 83690; 83735; 84100; 84145; 85025; 96361; 96365; 96375; 96376; 99284; J0131; J1815; J2405; J7030

== ENCOUNTER 2025-07-27 16:09 | Emergency (ER) | payer MEDICAID ==
[~2025-07-27] VITALS: Ht 195.6 cm; Wt 117.0 kg
[~2025-07-27 16:09] MED LIST changes: +BLOO-122 METER; +[UNRECOGNIZED DRUG - CODE]
[2025-07-27 17:27] LABS: MEAN PLATELET VOLUME 7.4 FL (7.4-10.4); RED CELL DISTRIBUTION WIDTH 13.1 % (11.5-14.5)
[2025-07-27 17:29] LABS: LEUKOCYTE ESTERASE ,URINE NEGATIVE (Neg); NITRITES, URINE NEGATIVE (Neg); OCCULT BLOOD,URINE TRACE-INTACT (Neg)
[2025-07-27 17:36] LABS: UA COLLECTION TYPE CLN CATCH MIDSTREAM
[2025-07-27 17:37] LABS: SQUAMOUS EPITHELIAL CELL,UR FEW /LPF (FEW)
[2025-07-27 17:38] LABS: HYALINE CASTS 0-3 /LPF (NEGATIVE)
[2025-07-27 17:46] LABS: CREATININE 2.62 MG/DL (0.60-1.10); TOTAL CARBON DIOXIDE 22.3 MMOL/L (24-32); eCRCL 48 ML/MIN; eGFR 27 ML/MIN
--- NOTE | 2025-07-27 22:24 | RADIOLOGY REPORT ---
CLINICAL HISTORY: "foggy" TECHNIQUE: Helical imaging carried out from skull base to vertex without intravenous contrast. This exam was performed according to our departmental dose optimization program. Up-to-date CT equipment and radiation dose reduction techniques are utilized as appropriate. CTDIVol: 68.11 mGy DLP: 1250.44 mGy-cm WID: COMPARISON: None FINDINGS: The ventricles and subarachnoid spaces are normal in size and configuration. There is no midline shift or mass effect. The lundberg white matter interfaces are maintained. The basal cisterns are patent. There is no evidence of acute intracranial hemorrhage or extra-axial fluid collection. The mastoid air cells and visualized paranasal sinuses are well-aerated. IMPRESSION: 1. No acute intracranial abnormality.
--- NOTE | 2025-07-27 22:27 | Physician Documentation ---
History of Present Illness ~ General Chief Complaint: Abnormal Lab(s) Stated Complaint: KIDNEY ISSUES Time Seen by MD: 21:02 Primary Medical Doctor: residents team History of Present Illness Initial Comments "brain fog" with headaches. Recently prescribed Topamax several weeks ago and has been also given the Librium to take additional dose as needed. No visual complaints yet vague headache complaints primary complaint is that of brain fog. He does have difficulty at times of word-finding. No focal neuro deficits and has a steady nonantalgic gait. He has a accompanied in the Emergency Department with his family. He has complex medical history. No recent hospitalizations, travels or known ill contacts. No reported fevers, nausea or vomiting diarrhea and/or rash. Medication Reconciliation Allergies: Coded Allergies: gabapentin (Unverified Adverse Reaction, Intermediate, SEIZURES/WT GAIN, 05/27/25) ADV REACTION ONLY EXPERIENCED ONLY AFTER STOCK WETTER TREATENT PER PT Scheduled Atorvastatin Calcium* (Lipitor*), 1 TAB PO HS, (Reported) Blood Sugar Diagnostic (Glucose Test Strip), 1 STRIP METER UD Carvedilol (Carvedilol), 25 MG PO BID Clonidine HCl (Clonidine HCl), 0.3 MG PO BID Hydralazine HCl (Hydralazine HCl), 0.5 TAB PO Q12H Insulin Glargine,Hum.rec.anlog* (Lantus*), 30 UNIT SQ HS Isosorbide Mononitrate (Isosorbide Mononitrate Er), 30 MG PO DAILY Omeprazole (Omeprazole), 40 MG PO ONCE, (Reported) Prednisone* (Prednisone*), 20 MG PO QAM@0830 Pregabalin (Pregabalin), 1 CAP PO Q12H Tamsulosin Hcl* (Flomax*), 1 TAB PO BKF, (Reported) Scheduled PRN Acetaminophen (Acetaminophen), 2 TAB PO BID PRN for pain, (Reported) Benzonatate (Benzonatate), 1 TAB PO TID PRN for cough, (Reported) Oxycodone HCl/Acetaminophen (Percocet 10-325 mg Tablet), 1 TAB PO QID PRN PRN for pain Miscellaneous Medications Aspirin ([place]azalore), (Reported) Insulin Lispro (Insulin Lispro Kwikpen U-100), SQ, (Reported) Durable Medical Equipment Blood-Glucose Meter (Blood Glucose Monitoring), UNIT, (DME) Past Medical History Past Medical History: Hypertension, Diabetes, Chronic Back Pain Past Surgical History: orthopedic surgeries, other Patient History: FH: CVA (cerebrovascular accident) MOTHER FH: cholecystectomy FATHER FH: hypothyroidism MOTHER maternal grandmother Kyphosis MOTHER Alcohol Use: Occasionally Drug Use: none Lives with: Family Lives In: Home Occupation: disabled Review of Systems All Other Systems at this time: Reviewed and Negative Physical Exam Physical Exam Vital Signs: RN Vital Signs have been reviewed: Yes, Temperature: 99.2, Source: Oral, Heart Rate: 115, Respiratory Rate: 16, BP: 171/122, Pulse Oximetry: 99, Weight: 117.000 Oxygen Flow Rate: 0 General Appearance: alert, WD/WN, mild distress, other (Patient is) Head: normal inspection Face: normal inspection Pupils/EOM/Fundus: PERRLA Ear: auricle normal Nose: normal inspection Neck: non-tender Respiratory: lungs clear Chest: no accessory muscle use Cardiovascular: normal peripheral pulses Gastrointestinal: normal palpation Back: normal inspection Extremities: normal range of motion Neurologic: oriented x4 Motor / Sensory: no motor deficit Psychiatric: normal mood/affect Skin: normal color Lymphatic: no adenopathy Progress Results/Orders Results/Orders Orders - CINDI WEBER PAC Ct Head (07/27/25 21:50) Chest,Single View (07/27/25 22:04) Completed Orders - CINDI WEBER PAC Ammonia (07/27/25 16:23) Ct Head (07/27/25 21:50) Chest,Single View (07/27/25 22:04) Vital Signs 07/27/25 07/27/25 07/27/25 16:14 20:34 22:39 Temp 98.7 99.2 98.6 Pulse 111 115 109 Resp 16 16 20 B/P (MAP) 174/113 171/122 (138) 169/105 Pulse Ox 96 99 99 O2 Flow Rate 0 0 Laboratory Tests Test 07/27/25 17:17 07/27/25 17:23 White Blood Count 7.3 Red Blood Count 4.90 Hemoglobin 14.0 Hematocrit 42.0 Mean Corpuscular Volume 85.7 Mean Corpuscular Hemoglobin 28.5 Mean Corpuscular Hemoglobin Concent 33.3 Red Cell Distribution Width 13.1 Platelet Count 402 Mean Platelet Volume 7.4 Neutrophils (%) (Auto) 73.4 Lymphocytes (%) (Auto) 18.5 L Monocytes (%) (Auto) 6.8 Eosinophils (%) (Auto) 0.6 Basophils (%) (Auto) 0.7 Neutrophils # (Auto) 5.4 Lymphocytes # (Auto) 1.3 Monocytes # (Auto) 0.5 Eosinophils # (Auto) 0.0 Basophils # (Auto) 0.0 CBC Comment Sodium Level 142 Potassium Level 4.6 Chloride Level 109 H Carbon Dioxide Level 22.3 L Anion Gap 11 Blood Urea Nitrogen 31 H Creatinine 2.62 H Estimated GFR/1.73 m2 27 BUN/Creatinine Ratio 11.8 Glucose Level 224 H Calcium Level 9.0 Total Bilirubin 0.5 Aspartate Amino Transf (AST/SGOT) 14 Alanine Aminotransferase (ALT/SGPT) 19 Alkaline Phosphatase 91 Ammonia 15 Total Protein 7.5 Albumin 3.4 Globulin 4.1 Albumin/Globulin Ratio 0.8 L Lipase 57 Chemistry Comments Urine Specimen Description Cln catch midstream Urine Color Straw Urine Clarity Clear Urine pH 6.5 Urine Specific [place] 1.020 Urine Protein >=300 H Urine Glucose (UA) 100 H Urine Ketones Negative Urine Occult Blood Trace-intact Urine Nitrite Negative Urine Bilirubin Negative Urine Urobilinogen 0.2 Urine Leukocyte Esterase Negative Urine RBC 0-2 Urine WBC 0-4 Urine Squamous Epithelial Cells Few Urine Bacteria None seen Urine Hyaline Casts 0-3 Urine Culture Indicated Not ind Volume Urine Centrifuged 10 ml Urine Comment Medical Decision Making Additional information obtaine: family Findings Patient with a past medical history of migraine in complex medical history prompting the need for CT imaging. After great deal of discussion and medical screening, CT imaging, labs and chest x-ray imaging. Labs are reassuring without electrolyte derangement or change in CKD. I feel that the patient's symptoms are contributory to use recent medication addition of Topamax and need additional medication increase his Topamax. Recommendations that are follow up with his primary care physician for consideration of neurology follow up for alternative migraine management and/or medication dose adjustment. Safely discharged in the emergency department with no focal neuro deficits in his steady nonantalgic gait. No clinical need at this time for MRI screening. Differential Diagnosis Intracranial mass or hemorrhage, complex migraine, medication side effect, drug toxicities and/or electrolyte derangements under the increasing causes of acute delirium brain fog. Departure Disposition: HOME / SELF CARE / HOMELESS Impression: Primary Impression: Medication side effect Additional Impressions: Type 1 diabetes Qualified Codes: E10.69 - Type 1 diabetes mellitus with other specified complication CKD stage 3 due to type 1 diabetes mellitus Condition: Improved Additional Instructions: Your labs obtained today are reassuring. Your CT imaging and your chest x-ray are also reassuring. I suspect your brain fog as secondary to Topamax. Please follow up with the primary care physician for consideration of referral to Neurology, discontinuing the Topamax and/or dose adjustment. Thank you for visiting emergency department of [facility]. Referrals: NO PRIMARY CARE PROVIDER (PCP) Education Educated: Patient, Family Educated regarding: diagnosis, treatment, prognosis Signature Scribe Signature: . Attestation: . CINDI WEBER [facility] Jul 27, 2025 22:27
[2025-07-27 22:39] VITALS: BP 169/105; PULSE 109; RESP 20; TEMP 98.6; O2SAT 99
--- NOTE | 2025-07-27 22:44 | RADIOLOGY REPORT ---
CHEST RADIOGRAPH INDICATION: Cough TECHNIQUE: Single frontal view of the chest was obtained COMPARISON: DI CHEST,SINGLE VIEW on DOS: 03/16/25, DI CHEST,SINGLE VIEW on DOS: 02/03/25 FINDINGS: Lungs and pleural spaces are clear. Cardiac silhouette and russell are within normal limits. Metallic rods within the thoracic and lumbar spine. IMPRESSION: No acute disease.
== END 2025-07-27 22:40 | disposition home or self-care (01) ==
LOC: ER 16:10
DX: R51.9 Headache, unspecified (principal); T50.905A Adverse effect of unspecified drugs, medicaments and biological substances, initial encounter; I12.9 Hypertensive chronic kidney disease with stage 1 through stage 4 chronic kidney disease, or unspecified chronic kidney disease; E10.22 Type 1 diabetes mellitus with diabetic chronic kidney disease; N18.30 Chronic kidney disease, stage 3 unspecified; G89.29 Other chronic pain; Z79.4 Long term (current) use of insulin; Z88.8 Allergy status to other drugs, medicaments and biological substances; Z79.899 Other long term (current) drug therapy; Z98.890 Other specified postprocedural states; Z72.89 Other problems related to lifestyle; Y92.89 Other specified places as the place of occurrence of the external cause
CPT/HCPCS: 36415; 70450; 71045; 80053; 81001; 82140; 83690; 85025; 99284